=== PATIENT | female | born 1950 | race American Indian/Alaskan Native ===

== ENCOUNTER 2016-09-08 21:40 | Emergency (ER) | payer MEDICARE, OTHER ==
[~2016-09-08] VITALS: Ht 162.6 cm; Wt 86.2 kg
[~2016-09-08 21:40] MED LIST: CEPHALEXIN500 MG PO; CIPRO500 MG PO; CIPROFLOXACIN500 MG PO; CLINDAMYCIN HC300 MG PO; CYCLOBENZAPRINE10 MG PO; CYMBALTA20 MG PO; CYMBALTA30 MG PO; DIAZEPAM5 MG PO; FLAGYL500 MG PO; HYDROCODON-ACE1 EAC8 PO; IBUPROFEN600 MG PO; METRONIDAZOLE500 MG PO; NORCO 10-325 T1 EACH PO; NORCO 5-325 TA1 EACH PO; PERCOCET 5-3251 EACH PO; POTASSIUM CHLO10 MEQ PO; PROMETHAZINE HC25 M1 PO; ZOFRAN ODT4 MG SL
[2016-09-08] MEDS ORDERED: SUBOXONE 8 MG-1 EAC1 SL (22:00)
[2016-09-08] MEDS ORDERED: CYCLOBENZAPRINE10 MG PO (22:01)
[2016-09-08] MEDS ORDERED: KLOR-CON M2020 MEQ PO (22:02)
[2016-09-09] MEDS ORDERED: CIPRO500 MG PO (00:08)
[2016-09-09] MEDS ORDERED: FLAGYL500 MG PO (00:08)
== END 2016-09-09 00:28 | disposition home or self-care (01) ==
LOC: ED 21:40
DX: K57.92 Diverticulitis of intestine, part unspecified, without perforation or abscess without bleeding (principal); F17.200 Nicotine dependence, unspecified, uncomplicated; C76.0 Malignant neoplasm of head, face and neck; Z86.73 Personal history of transient ischemic attack (TIA), and cerebral infarction without residual deficits; Z90.49 Acquired absence of other specified parts of digestive tract; Z88.0 Allergy status to penicillin; Z88.5 Allergy status to narcotic agent; Z88.8 Allergy status to other drugs, medicaments and biological substances; Z79.899 Other long term (current) drug therapy
CPT/HCPCS: 74177; 80053; 81001; 83690; 85025; 96360; 99284; J7030; Q9967

== ENCOUNTER 2016-12-06 21:22 | Emergency (ER) | payer MEDICARE, OTHER ==
[~2016-12-06] VITALS: Ht 162.6 cm; Wt 86.2 kg
[~2016-12-06 21:22] MED LIST changes: +KLOR-CON M2020 MEQ PO; +SUBOXONE 8 MG-1 EAC1 SL
[2016-12-06] MEDS ORDERED: ZOLPIDEM TARTRA10 MG PO (21:37)
--- NOTE | 2016-12-07 22:43 | EKG ---
[facility] [address] [facility] [place] [address] Signed Sinus rhythm with occasional premature ventricular complexes Nonspecific ST and T wave abnormality Abnormal ECG No previous ECGs available Confirmed by ROMAINE MCDOWELL MD ([id number]) on 12/07/2016 10:43:19 PM Electronically Signed By: ROMAINE MCDOWELL MD 12/07/16 2243 PATIENT NAME: RONI URIBE Electrocardiogram DATE OF : 48 PHYSICIAN: ROMAINE MCDOWELL MD REPORT #: [id number] REPORT IS CONFIDENTIAL AND NOT TO BE RELEASED WITHOUT AUTHORIZATION
== END 2016-12-07 00:50 | disposition home or self-care (01) ==
LOC: ED 21:22
PROC: 0T9B70Z Drainage of Bladder with Drainage Device, Via Natural or Artificial Opening (ICD-10-PCS; principal; 2016-12-06)
DX: R40.0 Somnolence (principal); T42.6X5S Adverse effect of other antiepileptic and sedative-hypnotic drugs, sequela; Z85.89 Personal history of malignant neoplasm of other organs and systems; F17.200 Nicotine dependence, unspecified, uncomplicated; Z90.49 Acquired absence of other specified parts of digestive tract; Z88.0 Allergy status to penicillin; Z88.5 Allergy status to narcotic agent; Z88.8 Allergy status to other drugs, medicaments and biological substances; Z79.899 Other long term (current) drug therapy
CPT/HCPCS: 36415; 51701; 71010; 80053; 80176; 81001; 85025; 93005; 93010; 94640; 99283; G0480

== ENCOUNTER 2017-08-31 17:25 | Emergency (ER) | payer MEDICARE, OTHER ==
[~2017-08-31] VITALS: Ht 165.1 cm; Wt 113.4 kg
[~2017-08-31 17:25] MED LIST changes: +ZOLPIDEM TARTRA10 MG PO
[2017-08-31] MEDS ORDERED: PROVENTIL HFA6.7 GM INH (20:13)
[2017-08-31] MEDS ORDERED: MEDROL4 M1 PO (20:13)
[2017-08-31] MEDS ORDERED: ZITHROMAX250 MG PO (20:13)
--- NOTE | 2017-09-01 20:59 | EKG ---
[facility] [address] [facility] [place] [address] Signed Normal sinus rhythm Normal ECG When compared with ECG of 06-DEC-2016 21:37, premature ventricular complexes are no longer present Confirmed by ROMAINE MCDOWELL MD ([id number]) on 09/01/2017 8:59:33 PM Electronically Signed By: ROMAINE MCDOWELL MD 09/01/172058 PATIENT NAME: RONI URIBE Electrocardiogram DATE OF : 48 PHYSICIAN: ROMAINE MCDOWELL MD REPORT #: [id number] REPORT IS CONFIDENTIAL AND NOT TO BE RELEASED WITHOUT AUTHORIZATION
== END 2017-08-31 20:33 | disposition home or self-care (01) ==
LOC: ED 17:25
DX: R07.89 Other chest pain (principal); J20.9 Acute bronchitis, unspecified; F17.200 Nicotine dependence, unspecified, uncomplicated; Z88.8 Allergy status to other drugs, medicaments and biological substances; Z88.0 Allergy status to penicillin; Z88.5 Allergy status to narcotic agent; Z88.6 Allergy status to analgesic agent; Z79.899 Other long term (current) drug therapy
CPT/HCPCS: 71045; 71260; 80053; 84484; 85025; 85379; 85610; 93005; 93010; 93971; 94640; 99285; Q9967

== ENCOUNTER 2018-06-30 15:28 | Emergency (ER) | payer MEDICARE, OTHER ==
[~2018-06-30] VITALS: Ht 165.1 cm; Wt 87.5 kg
--- OUTSIDE RECORDS SUMMARY | ~2018-06-30 | XMS | Encounter Summary ---
Demographics + + + | Address | [address] | | | [place] [address] | + + + | Home Phone | | + + + | Preferred Language | Unknown | + + + | Marital Status | | + + + | Faith Affiliation | CATRACHITO | + + + | Race | or | + + + | Ethnic Group | Not or | + + + Author + + + | Author | [facility] | + + + | Organization | [facility] | + + + | Address | Unknown | + + + | Phone | Unavailable | + + + Support + + +---------+ + | Name | Relationship | Address | Phone | + + +---------+ + | Isaias Salas | ECON | Unknown | | + + +---------+ + Care Team Providers + +------+ + | Care Fruit Sorter Name | Role | Phone | + +------+ + | No Pcp Per Patient | PCP | Unavailable | + +------+ + Reason for Visit + + + | Reason | Comments | + + + | Test Results | | + + + Encounter Details +--------+ + + + + | Date | Type | Department | Care Team | Description | +--------+ + + + + | 12/21/ | Documentati | Rheumatology at | Yolanda Contreras, | Test Results | | 2010 | on | Physicians Zack Huynh MD | | | | | [address] | | | | | | [facility] | | | | | | Mailcode: [address]35 | | | | | | Physicians [facility]ack | | | | | | [place], [place] | | | | | | [address] | | | | | | [phone] | | | +--------+ + + + + Social History + +-------+ +--------+------+ | Tobacco Use | Types | Packs/Day | Years | Date | | | | | Used | | + +-------+ +--------+------+ | Current Some Day | | | | | | Smoker | | | | | + +-------+ +--------+------+ + + +---------+ + | Alcohol Use | Drinks/Week | oz/Week | Comments | + + +---------+ + | No | | | | + + +---------+ + + + + | Sex Assigned at | Date Recorded | | | | + + + | Not on file | | + + + + + + + | Job Start Date | Occupation | Industry | + + + + | Not on file | Not on file | Not on file | + + + + + + + + | Travel History | Travel Start | Travel End | + + + + + + | No recent travel history available. | + + documented as of this encounter Plan of Treatment Not on filedocumented as of this encounter Visit Diagnoses Not on filedocumented in this encounter"
--- OUTSIDE RECORDS SUMMARY | ~2018-06-30 | XMS | Encounter Summary ---
Demographics + + + | Address | [address] | | | [place] [address] | + + + | Home Phone | | + + + | Preferred Language | Unknown | + + + | Marital Status | | + + + | Pentecostal Affiliation | CATRACHITO | + + + | Race | or | + + + | Ethnic Group | Not or | + + + Author + + + | Author | [facility] | + + + | Organization | [facility] | + + + | Address | Unknown | + + + | Phone | Unavailable | + + + Support + + +---------+ + | Name | Relationship | Address | Phone | + + +---------+ + | Isaias Salas | ECON | Unknown | | + + +---------+ + Care Team Providers + +------+ + | Care Certifier Name | Role | Phone | + +------+ + | Sulaiman Henderson MD | PCP | | + +------+ + Reason for Visit + + + | Reason | Comments | + + + | Test Results | Synovial Fluid | + + + Encounter Details +--------+ + + + + | Date | Type | Department | Care Team | Description | +--------+ + + + + | 04/30/ | Telephone | Rheumatology at | Lorena Valerio, | Test Results | | 2009 | | Physicians Zack | MD | (Synovial Fluid) | | | | [address] | | | | | | [facility] | | | | | | Mailcode: [address]35 | | | | | | Physicians [facility]ack | | | | | | [place], [place] | | | | | | [address] | | | | | | [phone] | | | +--------+ + + + + Social History + +-------+ +--------+------+ | Tobacco Use | Types | Packs/Day | Years | Date | | | | | Used | | + +-------+ +--------+------+ | Never Assessed | | | | | + +-------+ +--------+------+ + + + | Sex Assigned at [...]
--- OUTSIDE RECORDS SUMMARY | ~2018-06-30 | XMS | Encounter Summary ---
Demographics + + + | Address | [address] | | | [place] [address] | + + + | Home Phone | | + + + | Preferred Language | Unknown | + + + | Marital Status | | + + + | Roman Catholic Affiliation | CATRACHITO | + + + | Race | or | + + + | Ethnic Group | Not or | + + + Author + + + | Author | [facility] | + + + | Organization | [facility] | + + + | Address | Unknown | + + + | Phone | Unavailable | + + + Support + + +---------+ + | Name | Relationship | Address | Phone | + + +---------+ + | Isaias Salas | ECON | Unknown | | + + +---------+ + Care Team Providers + +------+ + | Care Chancellor Name | Role | Phone | + +------+ + | Sulaiman Henderson MD | PCP | | + +------+ + Reason for Visit + + + | Reason | Comments | + + + | Erroneous Encounter | | | - Disregard | | + + + Encounter Details +--------+---------+ + + + | Date | Type | Department | Care Team | Description | +--------+---------+ + + + | 01/18/ | Office | Rheumatology at | Ihsan Winters, | ERRONEOUS ENCOUNTER | | 2009 | Visit | Isreal Dixon | MD | - NO DIAGNOSIS | | | | [address] | | (Primary Dx) | | | | [facility] | | | | | | Mailcode: [address] | | | | | | Isreal Dixon | | | | | | [place], [place] | | | | | | [address] | | | | | | [phone] | | | +--------+---------+ + + + Social History + +-------+ [...] + + documented as of this encounter Progress Ihsan Mendoza MD - 12/24/2009 4:02 PM PDTPatient did not show for appointment.This en counter was opened in error. Please disregard this note. documented in this encounter Plan of Treatment Not on filedocumented as of this encounter Visit Diagnoses + + | Diagnosis | + + | ERRONEOUS ENCOUNTER - NO DIAGNOSIS - Primary | + + documented in this encounter"
--- OUTSIDE RECORDS SUMMARY | ~2018-06-30 | XMS | Encounter Summary ---
Demographics + + + | Address | [address] | | | [place] [address] | + + + | Home Phone | | + + + | Preferred Language | Unknown | + + + | Marital Status | | + + + | Yarsanism Affiliation | CATRACHITO | + + + | Race | or | + + + | Ethnic Group | Not or | + + + Author + + + | Author | [facility] | + + + | Organization | [facility] | + + + | Address | Unknown | + + + | Phone | Unavailable | + + + Support + + +---------+ + | Name | Relationship | Address | Phone | + + +---------+ + | Isaias Salas | ECON | Unknown | | + + +---------+ + Care Team Providers + +------+ + | Care Clinical Abstractor Name | Role | Phone | + +------+ + | Jairon Siegel | PCP | | + +------+ + Reason for Visit + + + | Reason | Comments | + + + | Appointment | | + + + Encounter Details +--------+ + + + + | Date | Type | Department | Care Team | Description | +--------+ + + + + | 08/16/ | Telephone | Digestive Health | Lucille De La Rosa, | Appointment | | 2013 | | Center at [facility] [address] | MD [address] | | | | | [address] | [place], [place] | | | | | Mailcode: [place] | [address] | | | | | for Health and | [phone] | | | | | [facility] [address] | | | | | | [place], [place] | | | | | | [address] | | | | | | [phone] | | | +--------+ + + + + Social History + + + +--------+------+ | Tobacco Use | Types | Packs/Day | Years | Date | | | | | Used | | + + + +--------+------+ | Current Some Day | Cigarettes | 0.1 | 12 | | | Smoker | | | | | + + + +--------+------+ + + | Comments: pt smokes 2 cig a day | + + + + +---------+ + | Alcohol Use [...]
--- OUTSIDE RECORDS SUMMARY | ~2018-06-30 | XMS | Encounter Summary ---
Demographics + + + | Address | [address] | | | [place] [address] | + + + | Home Phone | | + + + | Preferred Language | Unknown | + + + | Marital Status | | + + + | Latter Day Affiliation | CATRACHITO | + + + | Race | or | + + + | Ethnic Group | Not or | + + + Author + + + | Author | [facility] | + + + | Organization | [facility] | + + + | Address | Unknown | + + + | Phone | Unavailable | + + + Support + + +---------+ + | Name | Relationship | Address | Phone | + + +---------+ + | Isaias Salas | ECON | Unknown | | + + +---------+ + Care Team Providers + +------+ + | Care [employer] Name | Role | Phone | + +------+ + | Jairon Bailey | PCP | | + +------+ + Reason for Visit + + + | Reason | Comments | + + + | Diverticulitis | | + + + AUTH/CERT +--------+--------+ + + + + | Status | Reason | Specialty | Diagnoses / | Referred By | Referred To | | | | | Procedures | Contact | Contact | +--------+--------+ + + + + | Closed | | | | | | +--------+--------+ + + + + Encounter Details +--------+ + + + + | Date | Type | Department | Care Team | Description | +--------+ + + + + | 12/20/ | Hospital | [facility] [address] | Ladan Glynn, | | | 2011 - | Encounter | [address] | [address] | | | | | [place] [address] | [facility] [place] | | | 12/23/ | | [phone] | [id number] | | | 2011 | | | [phone] | | | | | | | | +--------+ + + + + Social History + + + +--------+------+ | Tobacco Use | Types | Packs/Day | Years | Date | | | | | Used | | + + + +--------+------+ | Current Some Day | Cigarettes | 0.1 | 12 | | | Smoker | | | | | + + + +--------+------+ + + | Tobacco Cessation: Ready to Quit: Yes; Counseling Given: Yes | | Comments: pt smokes 2 cig a [...] + + + | Blood Pressure | 106/64 | 12/24/2011 6:29 AM | | | | | PDT | | + + + + + | Pulse | 72 | 12/24/2011 6:29 AM | | | | | PDT | | + + + + + | Temperature | 37.2 C (99 F) | 12/24/2011 6:29 AM | | | | | PDT | | + + + + + | Respiratory Rate | 16 | 12/24/2011 6:29 AM | | | | | PDT | | + + + + + | Oxygen Saturation | 98% | 12/24/2011 6:29 AM | | | | | PDT | | + + + + + | Inhaled Oxygen | - | - | | | Concentration | | | | + + + + + | Weight | 86.2 kg (190 lb) | 12/21/2011 7:34 PM | | | | | PDT | | + + + + + | Height | 165.1 cm (5' 5") | 12/21/2011 7:34 PM | | | | | PDT | | + + + + + | Body Mass Index | 31.62 | 12/21/2011 7:34 PM | | | | | PDT | | + + + + + documented in this encounter Discharge Summaries Sergio Madden MD - 12/24/2011 7:40 AM PDTFormatting of this note might be different f rom the original. INPATIENT PHYSICIAN DISCHARGE SUMMARY Author: SERGIO MADDEN MD Attending Physician: Ladan Glynn MD PCP: Jairon BAILEY Admission Date: 12/21/2011 Discharge Date: 24 Dec 2011 Diagnoses Principal Final Diagnosis: 1) *Diverticula of small intestine Additional Diagnoses: 2) Abdominal pain 3) Tobacco abuse 4) Rheumatoid arthritis 5) Hypokalemia 6) Fever Brief Hospital Course Trudy Salas is a 61 y.o. Female with h/o perforated meckel's diverticulum who is s /p right colectomy and appendectomy, as well as h/o cholecystectomy, small bowel resection f or obstruction and subsequent incisional hernia's s/p mesh repair x2. The patient was refer red to blue surgery for possible component seperation and incisional hernia repair and was s een last week by Dr. Glynn. She was scheduled for repair on 12/28, however presented to th e ER in [facility] with RLQ abdominal and right flank pain and fevers to 102 per patient's re port. She was found to have a leukocytosis of 11.[address] was obtained. The CT showed mult iple small bowel diverticula and ileal thickening. She was started on zosyn and monitored o vernight and decision was made to transfer her to [facility] for further care. Zosyn was stopped a nd she was switched to Cipro and Flagyl. Patient endores anorexia but no significant wt loss , nausea but no emesis and diarrhea about 4x daily. She was kept NPO for the first day to al low for bowel rest. Her pain improved with medication, IV fluids and antibiotics. She was tr ansitioned to oral antibiotics and started on a full liquid diet which she has tolerated wel l and was subsequently advanced to a regular diet. Her hernia surgery has been postponed to February 2012 and we will have her follow up with Dr. Glynn in clinic at the end of . Medications: Current Discharge Medication List START taking these medications Details ciprofloxacin 500 mg Oral tablet Take 1 Tab by mouth two times daily for 5 days. Qty: 10 Tab, Refills: 0 metroNIDAZOLE 500 mg Oral tablet Take 1 Tab by mouth three times daily for 5 days. Qty: 15 Tab, Refills: 0 nicotine polacrilex 2 mg Buccal Lozenge Take 1 Lozenge by mouth every two hours as needed. Do not chew or swallow. Allow to dissolve slowly (~ 20-30 minutes) Indications: SMOKING JOSE MANUEL SATION Qty: 108 Each, Refills: 2 CONTINUE these medications which have NOT CHANGED Details methotrexate 2.5 mg Oral Tablet Take 6 Tabs by mouth every seven days. Qty: 24 Tab, Refills: 3 STOP taking these medications hydrocodone-acetaminophen (VICODIN) 5-500 mg Oral Tablet Comments: Reason for Stopping: potassium chloride 20 mEq Oral Packet Comments: Reason for Stopping: Diet Regular Regular diet- You may eat or drink whatever you prefer, though healthy food choices are rec ommended. Continue a diet low in fiber due to diverticulitis. As discussed with math tutor. Activity NO DRIVING WHILE ON NARCOTICS. CONSTIPATION: It is very important to avoid constipation and straining, there are several medications you can use to both prevent and relieve constipation. You can use stool softeners (Colace a.k. a. Docusate Sodium) or laxatives (Senokot -stool softener + laxative; Miralax - laxative dri nk; Dulcolax - suppository). Please work toward having a bowel movement every 1-2 days. It i s also important to stay hydrated as this will also help your bowel function. Other Discharge Orders and Instructions Medication Refill Instructions: For non-narcotic medication refills, please contact your pharmacy. If you think you will need a refill for the weekend, you must call by 3pm on to al low time for processing. Narcotics: If you need a refill on narcotic pain medications, please call the clinic be tween 8am-3pm. If you think you will need a refill for the weekend, you must call by 3pm on Narcotic medications (Dilaudid, Oxycodone, Morphine, etc.) cannot be called or faxed in to any pharmacy; They must be either picked up in person or mailed to your home. NO REFILL REQU ESTS WILL BE TAKEN ON FRIDAYS OR . Prescriptions sent by mail will take 3 business d ays. Prescriptions to be picked up in person will be ready by the next day. It is your responsibility to keep track of how much pain medication you have left. You may receive a phone call from the clinic inquiring about your pain; this is to find out if you are having expected post-surgical pain, or if you are having problems and need furth er evaluation. Please contact us if you have any of the following: Difficulty breathing or unusual shortness of breath; Excessive bleeding or drainage, or pus at the operative site; Fevers (greater than 101.5) or chills; Increased pain that is not relieved by pain medications; Persistent nausea, vomiting, or severe diarrhea. During normal business hours please call [facility] . For 'after hours' URGENT problems please call the [facility] magnetic tape composer operator at and ask fo r the "[facility] resident on-call". Your Follow-Up Plan Follow up with LADAN GLYNN MD in 4 weeks. (01/17 you have an appointment with Dr. Roly east) Contact information: [address] [facility] [phone] Vitals on discharge: Ht 165.1 cm (5' 5")( < 3 %ile), Wt 86.183 kg (190 lbs)( < 3 %ile), BP 106/64, Pulse 72, Temperature 37.2 C (99 F), RR 16, SpO2 98%, BMI 31.62 kg/(m^2). PE Gen: NAD Pulm: breathing comfortably on RA Abdomen: soft, minimally tender in RLQ (improved), non-distended Extremities: no peripheral edema Outstanding labs/studies: Final stool, urine, and blood cultures Discharging Physician: SERGIO MADDEN MD Attending Physician: Ladan Glynn MD documented in this en counter Discharge Instructions Instructions Anabela Spencer - 12/24/2011 Patient Education Materials: Abdominal Pain: After Your Visit Your Care Instructions Abdominal pain has many possible causes. Some aren't serious and get better on their own in a few days. Others need more testing and treatment. If your pain continues or gets worse, y ou need to be rechecked and may need more tests to find out what is wrong. You may need surg campos to correct the problem. Don't ignore new symptoms, such as fever, nausea and vomiting, urination problems, pain dane t gets worse, and dizziness. These may be signs of a more serious problem. Your doctor may have recommended a follow-up visit in the next 8 to 12 hours. If you are no t getting better, you may need more tests or treatment. The doctor has checked you carefully, but problems can develop later. If you notice any pro blems or new symptoms, get medical treatment right away. Follow-up care is a hudson part of your treatment and safety. Be sure to make and go to all ap pointments, and call your doctor if you are having problems. It's also a good idea to know y our test results and keep a list of the medicines you take. How can you care for yourself at home? Rest until you feel better. To prevent dehydration, drink plenty of fluids, enough so that your urine is light yello w or clear like water. Choose water and other caffeine-free clear liquids until you feel bet ter. If you have kidney, heart, or liver disease and have to limit fluids, talk with your do ctor before you increase the amount of fluids you drink. If your stomach is upset, eat mild foods, such as rice, dry toast or crackers, bananas, and applesauce. Try eating several small meals instead of two or three large ones. Wait until 48 hours after all symptoms have gone away before you have spicy foods, alcoh ol, and drinks that contain caffeine. Do not eat foods that are high in fat. Avoid anti-inflammatory medicines such as aspirin, ibuprofen (Advil, Motrin), and naprox en (Aleve). These can cause stomach upset. Talk to your doctor if you take daily aspirin for another health problem. When should you call for help? Call 911 anytime you think you may need emergency care. For example, call if: You passed out (lost consciousness). You pass maroon or very bloody stools. You vomit blood or what looks like coffee grounds. You have new, severe belly pain. Call your doctor now or seek immediate medical care if: Your pain gets worse, especially if it becomes focused in one area of your belly. You have a new or higher fever. Your stools are black and look like tar, or they have streaks of blood. You have unexpected vaginal bleeding. You have symptoms of a urinary tract infection. These may include: Pain when you urinate. Urinating more often than usual. Blood in your urine. You are dizzy or lightheaded, or you feel like you may faint. Watch closely for changes in your health, and be sure to contact your doctor if: You are not getting better after 1 day (24 hours). Where can you learn more? To learn more about "Abdominal Pain: After Your Visit", log into your BeeFirst.in account at [email or web address]. You can enter E907 in the [employer]" search box. Not on BeeFirst.in? Review the [employer]First[employer]in section of your After Visit Summary for directions on ho w to sign up. [id number] [employer]. Care instructions adapted under license by [facility]. This care instruction is for use with your licensed healthcar e professional. If you have questions about a medical condition or this instruction, always ask your healthcare professional. [employer] disclaims any warranty or liabili ty for your use of this information. Content Version: 9.4.73575; Last Revised: June 13, 2011 Discharge Nurse: Anabela Spencer Date: 12/24/2011 Discharge Time: 11:28 AM Abdominal Pain: After Your Visit Your Care Instructions Abdominal pain has many possible causes. Some aren't serious and get better on their own in a few days. Others need more testing and treatment. If your pain continues or gets worse, y ou need to be rechecked and may need more tests to find out what is wrong. You may need surg campos to correct the problem. Don't ignore new symptoms, such as fever, nausea and vomiting, urination problems, pain dane t gets worse, and dizziness. These may be signs of a more serious problem. Your doctor may have recommended a follow-up visit in the next 8 to 12 hours. If you are no t getting better, you may need more tests or treatment. The doctor has checked you carefully, but problems can develop later. If you notice any pro blems or new symptoms, get medical treatment right away. Follow-up care is a hudson part of your treatment and safety. Be sure to make and go to all ap pointments, and call your doctor if you are having problems. It's also a good idea to know y our test results and keep a list of the medicines you take. How can you care for yourself at home? Rest until you feel better. To prevent dehydration, drink plenty of fluids, enough so that your urine is light yello w or clear like water. Choose water and other caffeine-free clear liquids until you feel bet ter. If you have kidney, heart, or liver disease and have to limit fluids, talk with your do ctor before you increase the amount of fluids you drink. If your stomach is upset, eat mild foods, such as rice, dry toast or crackers, bananas, and applesauce. Try eating several small meals instead of two or three large ones. Wait until 48 hours after all symptoms have gone away before you have spicy foods, alcoh ol, and drinks that contain caffeine. Do not eat foods that are high in fat. Avoid anti-inflammatory medicines such as aspirin, ibuprofen (Advil, Motrin), and naprox en (Aleve). These can cause stomach upset. Talk to your doctor if you take daily aspirin for another health problem. When should you call for help? Call 911 anytime you think you may need emergency care. For example, call if: You passed out (lost consciousness). You pass maroon or very bloody stools. You vomit blood or what looks like coffee grounds. You have new, severe belly pain. Call your doctor now or seek immediate medical care if: Your pain gets worse, especially if it becomes focused in one area of your belly. You have a new or higher fever. Your stools are black and look like tar, or they have streaks of blood. You have unexpected vaginal bleeding. You have symptoms of a urinary tract infection. These may include: Pain when you urinate. Urinating more often than usual. Blood in your urine. You are dizzy or lightheaded, or you feel like you may faint. Watch closely for changes in your health, and be sure to contact your doctor if: You are not getting better after 1 day (24 hours). Where can you learn more? To learn more about "Abdominal Pain: After Your Visit", log into your BeeFirst.in account at [email or web address]. You can enter E907 in the [employer] Library" search box. Not on BeeFirst.in? Review the [email or web address] section of your After Visit Summary for directions on ho w to sign up. [id number] [employer]. Care instructions adapted under license by [facility]. This care instruction is for use with your licensed healthcar e professional. If you have questions about a medical condition or this instruction, always ask your healthcare professional. [employer] disclaims any warranty or liabili ty for your use of this information. Content Version: 9.4.79210; Last Revised: June 13, 2011 documented in this encounter Medications at Time of Discharge + + + +---------+ + + | Medication | Sig | Dispensed | Refills | Start | End Date | | | | | | Date | | + + + +---------+ + + | | Take 1-2 Tabs by | 30 Tab | 0 | 12/24/19 | | | HYDROcodone-acetamin | mouth every six | | | 12 | | | ophen 5-325 mg Oral | hours as needed (for | | | | | | tablet | pain.). Not to | | | | | | | exceed 10 tablets | | | | | | | per any 24 hour | | | | | | | period. (Not to | | | | | | | exceed 3250 mg of | | | | | | | acetaminophen from | | | | | | | all products per 24 | | | | | | | hour period.) | | | | | + + + +---------+ + + | Sennosides (SENNA) | Take 1 Cap by mouth | 30 Cap | 1 | 12/24/19 | | | 8.6 mg Oral capsule | two times daily. | | | 12 | | + + + +---------+ + + | ciprofloxacin 500 | Take 1 Tab by mouth | 10 Tab | 0 | 12/24/19 | | | mg Oral tablet | two times daily for | | | 12 | 2 | | | 5 days. | | | | | + + + +---------+ + + | metroNIDAZOLE 500 | Take 1 Tab by mouth | 15 Tab | 0 | 12/24/19 | | | mg Oral tablet | three times daily | | | 12 | 2 | | | for 5 days. | | | | | + + + +---------+ + + documented as of this encounter Progress Notes Sergio Madden MD - 12/23/2011 8:09 AM PDTFormatting of this note might be different f rom the original. ID: Trudy Salas is a 61 y.o. female with a history of meckels diverticulum and sma ll bowel diverticulitis who presented as a transfer from [place], [place]. 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 Subjective: Trudy Salas is a 61 y.o. Female who presented to [facility] a few days ago with severe abdominal pain. A CT indicated small bowel diverticulitis and she was given a d ose of zosyn. Since she was scheduled to have surgery with Dr. Glynn on December 28 here at [facility], they transferred her here for care. She has had a CAIN over night with moderate relie f from APAP and dilaudid. She does note that her nicotine patch came off yesterday and has n ot been replaced. She also would really like a cup of coffee. She denies N/V but has had cynthia e diarrhea. Current Inpatient Medications Medication Dose Route Frequency acetaminophen (aka TYLENOL) tablet 650 mg 650 mg Oral Q6H PRN ciprofloxacin (aka CIPRO) IV 400 mg 400 mg Intravenous Q12H enoxaparin (aka LOVENOX) injection 40 mg 40 mg Subcutaneous QPM famotidine in NS (aka PEPCID) IV 20 mg 20 mg Intravenous Q12H HYDROmorphone (aka DILAUDID) injection 0.2-1 mg 0.2-1 mg Intravenous Q2H PRN lactated ringers IV 100 mL/hr Intravenous CONTINUOUS metroNIDAZOLE (aka FLAGYL) IV 500 mg 500 mg Intravenous Q8H nicotine polacrilex (aka COMMIT) lozenge 2 mg 2 mg Oral Q1H PRN ondansetron (aka ZOFRAN) injection 4 mg 4 mg Intravenous Q12H PRN zolpidem (aka AMBIEN) tablet 5 mg 5 mg Oral HS PRN Objective: BP 123/63 | Pulse 69 | Temp 37.6 C (99.7 F) | RR 16 | Ht 1.651 m (5' 5") | Wt 86.183 kg (190 lb) | SpO2 96% | BMI 31.62 kg/(m^2) SBP: Systolic (24hrs), Av mmHg, Min:98 mmHg, Max:130 mmHg DBP: Diastolic (24hrs), Av mmHg, Min:53 mmHg, Max:72 mmHg Pulse: Pulse Av.3 Min: 64 Max: 73 Temp: Temp Av.2 C (99 F) Min: 36.7 C (98.1 F) Max: 37.8 C (100 F) Resp: Resp Av Min: 16 Max: 16 SpO2: SpO2 Av.2 % Min: 91 % Max: 96 % Intake/Output Summary (Last 24 hours) at 12/23/11 0809 Last data filed at 12/23/11 0600 Gross per 24 hour Intake 2796.67 ml Output 1625 ml Net 1171.67 ml Physical Exam: Gen: Healthy appearing female in no acute distress CV: RRR Resp: CTAB Abdomen: soft, tender to palpation diffusely with significant pain in the RLQ to palpation; normal percussion; normal bowel sounds; no mass, guarding or rebound tenderness Extremities: no lymphedema bilateral upper and lower extremities Labs: Chemistries: Recent Labs Basename 12/23/11 0456 12/21/11 2046 NA 141 137|137 K 3.3* 4.3|4.3 CL 102 102|102 BICARB 29 29|29 BUN 4* 7|7 CR 0.63 0.61|0.61 GLU 87 84|84 CA 8.4* 8.1*|8.1* AST -- -- ALT -- -- AP -- -- TBILI -- -- TP -- -- ALB 2.9* 2.9* CBC: CBC with diff last 72 hours (or 3 results) Recent Labs Basename 12/23/11 0456 12/22/11 0801 12/21/11 2046 WBC 4.3* 8.3 10.6 HB 10.9* 10.9* 11.7* HCT 33.1* 32.8* 35.3* PLT 180 160 155 NEUTROPERC -- -- 82* BANDPCT -- -- -- LYMPHPERC -- -- 13* MONOPERC -- -- 5 BASOPERC -- -- 0 EOSPERC -- -- 0* Assessment/Plan Trudy Salas is a 61 y.o. Female transferred here from [place] for a small bowel diverticulitis. She has been on cipro and metronidazole and has not had a fever for more dane n 24h at this time. Due to the diverticulitis, her surgery with Dr. Glynn on December 28 has been postponed to allow for full recovery before operating. Small bowel diverticulitis - Advance to full liquid diet today - monitor for worsening sx or N/V - continue to monitor CBC and watch for fevers Tobacco dependence - pt was smoking only 2-3 cigarrettes a day so should be OK with lozenges only - d/c nicotine patch CAIN - possibly due to caffeine withdrawal, will see if her coffee this morning I proves her sx Scribed by Jefferson Herrera, MS3 [facility] Medical Student 2014 Pager [phone] I saw and examined this patient with the medical student and agree with his assessment and plan. With the following additions: patient was transitioned to PO Cipro and Flagyl and will be continued on these at discharge for a total duration of 7 days. Advanced to full liquid diet this AM which was well tolerated, will advance to regular in AM. Will f/u blood culture s. Likely will discharge patient in the AM. Sergio Madden, [id number] signed by Sergio Madden MD at 12/23/2011 9:20 PM PDTS Sergio ocampo MD - 12/22/2011 11:36 AM PDTFormatting of this note might be different fro m the original. [facility] Inpatient Progress Note Hospital Day #1 Author: SERGIO MADDEN MD Attending: Ladan Glynn MD ID: Trudy Salas Interval Hx: Transferred to [facility] from [place] last night. Febrile to 38.8 overnight. Chemistries: Last 72 Hours (or 3 results): Recent Labs Basename 12/21/112045 NA 137|137 K 4.3|4.3 CL 102|102 BICARB 29|29 BUN 7|7 CR 0.61|0.61 GLU 84|84 CA 8.1*|8.1* MG -- PO4 3.5 CBC with diff last 72 hours (or 3 results) Recent Labs Basename 12/22/11 0801 12/21/112045 WBC 8.3 10.6 HB 10.9* 11.7* HCT 32.8* 35.3* PLT 160 155 NEUTROPERC -- 82* BANDPCT -- -- LYMPHPERC -- 13* MONOPERC -- 5 BASOPERC -- 0 EOSPERC -- 0* Physical Examination: Last Vitals: BP 109/53 | Pulse 71 | Temp 37.1 C (98.8 F) | RR 16 | Ht 1.651 m (5' 5") | Wt 86.183 kg (190 lb) | SpO2 92% | BMI 31.62 kg/(m^2) 24 Hour Vital Min/Max: Systolic (24hrs), Av mmHg, Min:105 mmHg, Max:123 mmHg Diastolic (24hrs), Av mmHg, Min:53 mmHg, Max:57 mmHg Pulse Av.8 Min: 69 Max: 82 Temp Av C (100.4 F) Min: 37.1 C (98.8 F) Max: 39.3 C (102.7 F) Resp Av Min: 16 Max: 18 SpO2 Av % Min: 92 % Max: 97 % Date 12/21/11699 - 12/22/1165812/22/11699 - 12/23/11 0659 Shift 2350-3353 0822-7548 5994-1719 Daily Total 5859-3724 0395-7657 5027-7138 Daily Total I N T A K E I.V. 732 811 5104 Shift Total 974 474 6123 O U T P U T Urine 113 602 0527 Urine 023 227 6013 Shift Total 206 795 1455 NET -255 130 -125 General: Awake, alert, and oriented x4, no acute distress, VSS HEENT:NC/AT, anicteric Pulm: Respirations even/unlabored, chest expansion symmetrical Abdomen: Soft.tender to palpation in RLQ- but no rebound or guarding, Non-distended, palpab le inferior- abdominal fascial defect MS: Moves all extremities well, Warm and well perfused Derm: No edema Endocrine: Last CBG's POC Lab Results Component Value Date GLU 84 12/21/2011 GLU 84 12/21/2011 Assessment: Trudy Salas, HD#2, with h/o perforated meckel's diverticulum who is s/ p right colectomy and appendectomy, as well as h/o cholecystectomy, small bowel resection fo r obstruction and subsequent incisional hernia's s/p mesh repair x2. The patient was referre d to blue surgery for possible component seperation and incisional hernia repair and was see n last week by Dr. Glynn. She was scheduled for repair on 12/28, however presented to the E R in [facility] with RLQ abdominal and right flank pain and fevers to 102 per patient's repor t. She was found to have a leukocytosis of 11.[address] was obtained that showed some infla mmation of the ileum with diverticula. She was transferred to [facility] for management. Plan: 1. Inflammation of the terminal ileum, possible SB diverticulitis- Tmax of 102.7 this morni ng but afebrile now, clinically appears well, no peritoneal signs, no perforation on CT scan . -continue Cipro/Flagyl, will consider broadening spectrum with Zosyn if patient continues to be febrile -stool cx today, will f/u blood cx and adjust abx as indicated -continue NPO -Zofran PRN 2. Fever workup for non-GI causes -f/u final read of CXR, UA and urine cx 3. Oxygen req- on 1 L NC this AM 4. Rheumatoid Arthritis -will hold patient's newly prescribed methotrexate as she has not started taking it yet 5. Tobacco cessation -per pharm will discontinue nicotine patch, continue lozenge Fluids:LR @ 100 Electrolytes: WNL last night, will re-check in AM Diet/Nutrition: NPO Prophylaxis: Lovenox 40mg QHS- start tonight/ Pepcid 20 mg IV BID while NPO Anticipated date of discharge: TBD Attending Physician: Rj Madden MD [facility] Pager# [phone] 11:37 AM 12/22/2011 Current Inpatient Medications Medication Dose Route Frequency acetaminophen (aka TYLENOL) tablet 650 mg 650 mg Oral Q6H PRN ciprofloxacin (aka CIPRO) IV 400 mg 400 mg Intravenous Q12H HYDROmorphone (aka DILAUDID) injection 0.2-1 mg 0.2-1 mg Intravenous Q2H PRN lactated ringers IV 100 mL/hr Intravenous CONTINUOUS methotrexate tablet 15 mg 15 mg Oral Q7D metroNIDAZOLE (aka FLAGYL) IV 500 mg 500 mg Intravenous Q8H nicotine (aka NICOTROL) 14 mg/24 hr 1 Patch 1 Patch Transdermal DAILY nicotine polacrilex (aka COMMIT) lozenge 2 mg 2 mg Oral Q1H PRN ondansetron (aka ZOFRAN) injection 4 mg 4 mg Intravenous Q12H PRN documented in this encounter Plan of Treatment + +------+--------+ + + | Name | Type | Priori | Associated Diagnoses | Order Schedule | | | | ty | | | + +------+--------+ + + | CULTURE, SPUTUM | Lab | Routin | | Collect Now for 1 | | | | e | | Occurrences starting | | | | | | 12/22/2011 until | | | | | | 12/22/2011 | + +------+--------+ + + documented as of this encounter Procedures + +--------+ + + + | Procedure Name | Priori | Date/Time | Associated Diagnosis | Comments | | | ty | | | | + +--------+ + + + | CBC ONLY | Routin | 12/24/2011 | | Results for this | | | e | 5:17 AM | | procedure are in the | | | | PDT | | results section. | + +--------+ + + + | CBC ONLY | Routin | 12/24/2011 | | Results for this | | | e | 5:17 AM | | procedure are in the | | | | PDT | | results section. | + +--------+ + + + | CBC ONLY | Routin | 12/23/2011 | | Results for this | | | e | 4:56 AM | | procedure are in the | | | | PDT | | results section. | + +--------+ + + + | RENAL FUNCTION SET | Routin | 12/23/2011 | | Results for this | | (NA,K,CL,CO2,BUN,CRE | e | 4:56 AM | | procedure are in the | | AT,GLUC,CA,PHOS,ALB | | PDT | | results section. | | ) | | | | | + +--------+ + + + | CBC ONLY | Routin | 12/23/2011 | | Results for this | | | e | 4:56 AM | | procedure are in the | | | | PDT | | results section. | + +--------+ + + + | MAGNESIUM, PLASMA | Routin | 12/23/2011 | | Results for this | | | e | 4:56 AM | | procedure are in the | | | | PDT | | results section. | + +--------+ + + + | CULTURE, STOOL BACTI | Routin | 12/22/2011 | | Results for this | | | e | 11:02 AM | | procedure are in the | | | | PDT | | results section. | + +--------+ + + + | X-RAY PORTABLE CHEST | Routin | 12/22/2011 | | Results for this | | 1 VIEW | e | 9:39 AM | | procedure are in the | | | | PDT | | results section. | + +--------+ + + + | CBC ONLY | Routin | 12/22/2011 | | Results for this | | | e | 8:01 AM | | procedure are in the | | | | PDT | | results section. | + +--------+ + + + | CBC ONLY | Routin | 12/22/2011 | | Results for this | | | e | 8:01 AM | | procedure are in the | | | | PDT | | results section. | + +--------+ + + + | UA, DIPSTICK ONLY | Routin | 12/22/2011 | | Results for this | | | e | 3:08 AM | | procedure are in the | | | | PDT | | results section. | + +--------+ + + + | URINE, MICROSCOPIC | Routin | 12/22/2011 | | Results for this | | EXAM | e | 3:08 AM | | procedure are in the | | | | PDT | | results section. | + +--------+ + + + | CULTURE, BLOOD BACTI | Routin | 12/22/2011 | | Results for this | | & YEAST [facility] | e | 1:37 AM | | procedure are in the | | | | PDT | | results section. | + +--------+ + + + | CULTURE, BLOOD BACTI | Routin | 12/22/2011 | | Results for this | | & YEAST [facility] | e | 1:37 AM | | procedure are in the | | | | PDT | | results section. | + +--------+ + + + | CULTURE, BLOOD BACTI | Routin | 12/22/2011 | | Results for this | | & YEAST | e | 1:37 AM | | procedure are in the | | | | PDT | | results section. | + +--------+ + + + | CULTURE, BLOOD BACTI | Routin | 12/22/2011 | | Results for this | | & YEAST | e | 1:37 AM | | procedure are in the | | | | PDT | | results section. | + +--------+ + + + | ERIN PHAM ONLY | Routin | 12/21/2011 | | Results for this | | | e | 10:05 PM | | procedure are in the | | | | PDT | | results section. | + +--------+ + + + | URINE SCREEN FOR | Routin | 12/21/2011 | | Results for this | | CULTURE | e | 10:05 PM | | procedure are in the | | | | PDT | | results section. | + +--------+ + + + | 12 LEAD ECG | Urgent | 12/21/2011 | | Results for this | | | | 8:47 PM | | procedure are in the | | | | PDT | | results section. | + +--------+ + + + | CBC AND AUTO DIFF | Routin | 12/21/2011 | | Results for this | | | e | 8:46 PM | | procedure are in the | | | | PDT | | results section. | + +--------+ + + + | INR | Routin | 12/21/2011 | | Results for this | | | e | 8:46 PM | | procedure are in the | | | | PDT | | results section. | + +--------+ + + + | CBC, WITH | Routin | 12/21/2011 | | Results for this | | DIFFERENTIAL | e | 8:46 PM | | procedure are in the | | | | PDT | | results section. | + +--------+ + + + | BASIC METABOLIC SET | Routin | 12/21/2011 | | Results for this | | (NA, K, CL, TCO2, | e | 8:46 PM | | procedure are in the | | BUN, CR, GLU, CA) | | PDT | | results section. | + +--------+ + + + | RENAL FUNCTION SET | Routin | 12/21/2011 | | Results for this | | (NA,K,CL,CO2,BUN,CRE | e | 8:46 PM | | procedure are in the | | AT,GLUC,CA,PHOS,ALB | | PDT | | results section. | | ) | | | | | + +--------+ + + + | RADIOLOGY | | 12/21/2011 | | Results for this | | | | 12:00 AM | | procedure are in the | | | | PDT | | results section. | + +--------+ + + + documented in this encounter Results CBC (12/24/2011 5:17 AM PDT) + + + + + + | Component | Value | Ref Range | Performed | Pathologist | | | | | At | Signature | + + + + + + | WHITE CELL | 4.6 | 4.4 - 11.0 K/cu | [facility] | | | COUNT | | mm | LABORATORY | | | | | | SERVICES, | | | | | | CORE | | + + + + + + | RED CELL | 4.34 | 4.00 - 5.20 | [facility] | | | COUNT | | M/cu mm | LABORATORY | | | | | | SERVICES, | | | | | | CORE | | + + + + + + | HEMOGLOBIN | 13.1 | 12.0 - 16.0 | [facility] | | | | | g/dL | LABORATORY | | | | | | SERVICES, | | | | | | CORE | | + + + + + + | HEMATOCRIT | 39.8 | 36.0 - 46.0 % | [facility] | | | | | | LABORATORY | | | | | | SERVICES, | | | | | | CORE | | + + + + + + | MCV | 91.8 | 80.0 - 96.0 fL | [facility] | | | | | | LABORATORY | | | | | | SERVICES, | | | | | | CORE | | + + + + + + | MCHC | 33.0 (L) | 33.4 - 35.5 | [facility] | | | | | g/dL | LABORATORY | | | | | | SERVICES, | | | | | | CORE | | + + + + + + | RDW | 13.9 | 11.5 - 15.0 % | [facility] | | | | | | LABORATORY | | | | | | SERVICES, | | | | | | CORE | | + + + + + + | PLATELET | 243 | 150 - 400 K/cu | [facility] | | | COUNT | | mm | LABORATORY | | | | | | SERVICES, | | | | | | CORE | | + + + + + + + + | Specimen | + + | Blood - Blood | + + + + + + + | Performing | Address | City/State/Zipcode | Phone Number | | Organization | | | | + + + + + | [facility] | [address] | [place] [address] | | | SERVICES, CORE | [address] | | | + + + + + CBC (12/23/2011 4:56 AM PDT) + + + + + + | Component | Value | Ref Range | Performed | Pathologist | | | | | At | Signature | + + + + + + | WHITE CELL | 4.3 (L) | 4.4 - 11.0 K/cu | [facility] | | | COUNT | | mm | LABORATORY | | | | | | SERVICES, | | | | | | CORE | | + + + + + + | RED CELL | 3.65 (L) | 4.00 - 5.20 | [facility] | | | COUNT | | M/cu mm | LABORATORY | | | | | | SERVICES, | | | | | | CORE | | + + + + + + | HEMOGLOBIN | 10.9 (L) | 12.0 - 16.0 | [facility] | | | | | g/dL | LABORATORY | | | | | | SERVICES, | | | | | | CORE | | + + + + + + | HEMATOCRIT | 33.1 (L) | 36.0 - 46.0 % | [facility] | | | | | | LABORATORY | | | | | | SERVICES, | | | | | | CORE | | + + + + + + | MCV | 90.7 | 80.0 - 96.0 fL | [facility] | | | | | | LABORATORY | | | | | | SERVICES, | | | | | | CORE | | + + + + + + | MCHC | 33.0 (L) | 33.4 - 35.5 | [facility] | | | | | g/dL | LABORATORY | | | | | | SERVICES, | | | | | | CORE | | + + + + + + | RDW | 13.3 | 11.5 - 15.0 % | [facility] | | | | | | LABORATORY | | | | | | SERVICES, | | | | | | CORE | | + + + + + + | PLATELET | 180 | 150 - 400 K/cu | [facility] | | | COUNT | | mm | LABORATORY | | | | | | SERVICES, | | | | | | CORE | | + + + + + + + + | Specimen | + + | Blood - Blood | + + + + + + + | Performing | Address | City/State/Zipcode | Phone Number | | Organization | | | | + + + + + | [facility] | [address] | [place] [address] | | | SERVICES, CORE | [address] | | | + + + + + MAGNESIUM, PLASMA (12/23/2011 4:56 AM PDT) + +---------+ + + + | Component | Value | Ref Range | Performed | Pathologist | | | | | At | Signature | + +---------+ + + + | MAGNESIUM,P | 1.6 (L) | 1.8 - 2.5 mg/dL | [facility] | | | LASMA | | | LABORATORY | | | | | | CESAR, | | | | | | CORE | | + +---------+ + + + + + | Specimen | + + | Blood - Blood | + + + + + + + | Performing | Address | City/State/Zipcode | Phone Number | | Organization | | | | + + + + + | [facility] | [address] | [place] [address] | | | SERVICES, CORE | [address] | | | + + + + + RENAL FUNCTION SET (NA,K,CL,CO2,BUN,CREAT,GLUC,CA,PHOS,ALB ) (12/23/2011 4:56 AM PDT) + +---------+ + + + | Component | Value | Ref Range | Performed | Pathologist | | | | | At | Signature | + +---------+ + + + | GLUCOSE, | 87 | 60 - 99 mg/dL | [facility] | | | PLASMA | | | LABORATORY | | | (LAB) | | | SERVICES, | | | | | | CORE | | + +---------+ + + + | BUN, PLASMA | 4 (L) | 6 - 20 mg/dL | [facility] | | | (LAB) | | | LABORATORY | | | | | | SERVICES, | | | | | | CORE | | + +---------+ + + + | CREATININE | 0.63 | 0.60 - 1.10 | [facility] | | | PLASMA | | mg/dL | LABORATORY | | | (LAB) | | | SERVICES, | | | | | | CORE | | + +---------+ + + + | SODIUM, | 141 | 136 - 145 | [facility] | | | PLASMA | | mmol/L | LABORATORY | | | (LAB) | | | SERVICES, | | | | | | CORE | | + +---------+ + + + | POTASSIUM, | 3.3 (L) | 3.4 - 5.0 | [facility] | | | PLASMA | | mmol/L | LABORATORY | | | (LAB) | | | SERVICES, | | | | | | CORE | | + +---------+ + + + | CHLORIDE, | 102 | 97 - 108 mmol/L | [facility] | | | PLASMA | | | LABORATORY | | | (LAB) | | | SERVICES, | | | | | | CORE | | + +---------+ + + + | TOTAL CO2, | 29 | 21 - 32 mmol/L | [facility] | | | PLASMA | | | LABORATORY | | | (LAB) | | | SERVICES, | | | | | | CORE | | + +---------+ + + + | CALCIUM, | 8.4 (L) | 8.6 - 10.2 | [facility] | | | PLASMA | | mg/dL | LABORATORY | | | (LAB) | | | SERVICES, | | | | | | CORE | | + +---------+ + + + | ALBUMIN, | 2.9 (L) | 3.5 - 4.7 g/dL | [facility] | | | PLASMA | | | LABORATORY | | | (LAB) | | | SERVICES, | | | | | | CORE | | + +---------+ + + + | PHOSPHORUS, | 2.3 (L) | 2.4 - 4.7 mg/dL | [facility] | | | PLASMA | | | LABORATORY | | | (LAB) | | | SERVICES, | | | | | | CORE | | + +---------+ + + + | POTASSIUM | No Hemo | | [facility] | | | CMNT | | | LABORATORY | | | | | | SERVICES, | | | | | | CORE | | + +---------+ + + + | ANION GAP | 10 | 4 - 11 mmol/L | [facility] | | | | | | LABORATORY | | | | | | SERVICES, | | | | | | CORE | | + +---------+ + + + | ANION | 12 (H) | 4 - 11 mmol/L | [facility] | | | GAP(ALB | | | LABORATORY | | | CORRECTED) | | | SERVICES, | | | | | | CORE | | + +---------+ + + + + + | Specimen | + + | Blood - Blood | + + + + + + + | Performing | Address | City/State/Zipcode | Phone Number | | Organization | | | | + + + + + | [facility] | [address] | [place] [address] | | | SERVICES, [place] | [address] | | | + + + + + CULTURE, STOOL BACTI (12/22/2011 11:02 AM PDT) + + + + + + | Component | Value | Ref Range | Performed | Pathologist | | | | | At | Signature | + + + + + + | CULTURE | C StoolSource: | | [facility] - | | | RESULT | Stool | | [facility] - | | | | Final | | [facility] | | | | CULTURE | | | | | | RESULT:Salmonella, | | | | | | Shigella, Campylobacter | | | | | | and E.coli O157:H7 not | | | | | | isolated Unable to rule | | | | | | out Shiga toxins 1 and 2 | | | | + + + + + + + + | Specimen | + + | Stool - Rectum | + + + + + + + | Performing | Address | City/State/Zipcode | Phone Number | | Organization | | | | + + + + + | [facility] | [id number] | [place] [address] | | | [facility] | | | | + + + + + X-RAY PORTABLE CHEST 1 VIEW (12/22/2011 9:39 AM PDT) + + + + + + | Component | Value | Ref Range | Performed | Pathologist | | | | | At | Signature | + + + + + + | X-RAY | EXAM: MD CHEST 1 VIEW, | | | | | PORTABLE | 12/22/11 COMPARISON: | | | | | CHEST 1 | None HISTORY: | | | | | VIEW | 61-year-old female | | | | | | admitted for recurrent | | | | | | incisional herniawith | | | | | | right lower quadrant | | | | | | abdominal | | | | | | pain. Febrile. | | | | | | FINDINGS: There is trace | | | | | | bibasilar linear | | | | | | atelectasis, otherwise | | | | | | the lungs | | | | | | areclear. There is no | | | | | | pleural effusion or | | | | | | pneumothorax. Thecard | | | | | | iomediastinal contour is | | | | | | normal. The osseous | | | | | | structures | | | | | | areunremarkable. | | | | | | IMPRESSION: Trace | | | | | | bibasilar linear | | | | | | atelectasis, otherwise | | | | | | clear lungs. Attending | | | | | | Radiologists: Dwight Chakraborty | | | | | | Anne KaiserAuthor: | | | | | | MIRIAM PATEL MD I have | | | | | | personally viewed this | | | | | | procedure/exam, reviewed | | | | | | this report,and made | | | | | | changes to it where | | | | | | appropriate. | | | | | | Final/Electronically | | | | | | signed / Dwight Chakraborty | | | | | | Job 12/22/2011 | | | | | | 15:11 PM | | | | + + + + + + + + | Specimen | + + | | + + + +---------+ + + | Performing | Address | City/State/Zipcode | Phone Number | | Organization | | | | + +---------+ + + | [facility] | | | | | RADIOLOGY | | | | + +---------+ + + CBC (12/22/2011 8:01 AM PDT) + + + + + + | Component | Value | Ref Range | Performed | Pathologist | | | | | At | Signature | + + + + + + | WHITE CELL | 8.3 | 4.4 - 11.0 K/cu | [facility] | | | COUNT | | mm | LABORATORY | | | | | | SERVICES, | | | | | | CORE | | + + + + + + | RED CELL | 3.59 (L) | 4.00 - 5.20 | [facility] | | | COUNT | | M/cu mm | LABORATORY | | | | | | SERVICES, | | | | | | CORE | | + + + + + + | HEMOGLOBIN | 10.9 (L) | 12.0 - 16.0 | [facility] | | | | | g/dL | LABORATORY | | | | | | SERVICES, | | | | | | CORE | | + + + + + + | HEMATOCRIT | 32.8 (L) | 36.0 - 46.0 % | [facility] | | | | | | LABORATORY | | | | | | SERVICES, | | | | | | CORE | | + + + + + + | MCV | 91.2 | 80.0 - 96.0 fL | [facility] | | | | | | LABORATORY | | | | | | SERVICES, | | | | | | CORE | | + + + + + + | MCHC | 33.1 (L) | 33.4 - 35.5 | [facility] | | | | | g/dL | LABORATORY | | | | | | SERVICES, | | | | | | CORE | | + + + + + + | RDW | 13.6 | 11.5 - 15.0 % | [facility] | | | | | | LABORATORY | | | | | | SERVICES, | | | | | | CORE | | + + + + + + | PLATELET | 160 | 150 - 400 K/cu | [facility] | | | COUNT | | mm | LABORATORY | | | | | | SERVICES, | | | | | | CORE | | + + + + + + + + | Specimen | + + | Blood - Blood | + + + + + + + | Performing | Address | City/State/Zipcode | Phone Number | | Organization | | | | + + + + + | [facility] | [address] | [place] [address] | | | SERVICES, CORE | [address] | | | + + + + + URINE, MICROSCOPIC EXAM (12/22/2011 3:08 AM PDT) + +---------+ + + + | Component | Value | Ref Range | Performed | Pathologist | | | | | At | Signature | + +---------+ + + + | RED CELLS | 1 | 0 - 3 /hpf | [facility] | | | | | | LABORATORY | | | | | | SERVICES, | | | | | | CORE | | + +---------+ + + + | WHITE CELLS | 4 | 0 - 5 /hpf | [facility] | | | | | | LABORATORY | | | | | | SERVICES, | | | | | | CORE | | + +---------+ + + + | BACTERIA | None | None /hpf | [facility] | | | | | | LABORATORY | | | | | | SERVICES, | | | | | | CORE | | + +---------+ + + + | YEAST (LAB) | None | None /hpf | [facility] | | | | | | LABORATORY | | | | | | SERVICES, | | | | | | CORE | | + +---------+ + + + | SQUAMOUS | Few (A) | None /hpf | [facility] | | | EPITHELIAL | | | LABORATORY | | | | | | SERVICES, | | | | | | CORE | | + +---------+ + + + | MUCOUS | Few (A) | None /hpf | [facility] | | | | | | LABORATORY | | | | | | SERVICES, | | | | | | CORE | | + +---------+ + + + | TRICHOMONAS | None | None /hpf | [facility] | | | | | | LABORATORY | | | | | | SERVICES, | | | | | | CORE | | + +---------+ + + + | NON-SQUAMOU | Few (A) | None /hpf | [facility] | | | S EPITH | | | LABORATORY | | | | | | SERVICES, | | | | | | CORE | | + +---------+ + + + | HYALINE | 0 | 0 - 2 /lpf | [facility] | | | CASTS | | | LABORATORY | | | | | | SERVICES, | | | | | | CORE | | + +---------+ + + + | GRANULAR | 0 | 0 - 2 /lpf | [facility] | | | CASTS | | | LABORATORY | | | | | | SERVICES, | | | | | | CORE | | + +---------+ + + + | CELLULAR | 0 | <=0 /lpf | [facility] | | | CASTS | | | LABORATORY | | | | | | SERVICES, | | | | | | CORE | | + +---------+ + + + | TRIPLE P04 | None | None /hpf | [facility] | | | CRYSTALS | | | LABORATORY | | | | | | SERVICES, | | | | | | CORE | | + +---------+ + + + | CALCIUM | None | None /hpf | [facility] | | | OXALATE | | | LABORATORY | | | RENEE | | | SERVICES, | | | | | | CORE | | + +---------+ + + + | URIC ACID | None | None /hpf | [facility] | | | CRYSTALS | | | LABORATORY | | | | | | SERVICES, | | | | | | CORE | | + +---------+ + + + | AMORPHOUS | None | None /hpf | [facility] | | | CRYSTALS | | | LABORATORY | | | | | | SERVICES, | | | | | | CORE | | + +---------+ + + + + + | Specimen | + + | Urine - Urine | + + + + + + + | Performing | Address | City/State/Zipcode | Phone Number | | Organization | | | | + + + + + | [facility] | [address] | [place] [address] | | | SERVICES, CORE | [address] | | | + + + + + ERIN PHAM ONLY (12/22/2011 3:08 AM PDT) + + + + + + | Component | Value | Ref Range | Performed | Pathologist | | | | | At | Signature | + + + + + + | COLOR(UR) | Yellow | (none) | [facility] | | | | | | LABORATORY | | | | | | SERVICES, | | | | | | CORE | | + + + + + + | APPEARANCE | Clear | (none) | [facility] | | | | | | LABORATORY | | | | | | SERVICES, | | | | | | CORE | | + + + + + + | GLUCOSE(UR) | Negative | Negative, 50.0 | [facility] | | | | | mg/dL | LABORATORY | | | | | | SERVICES, | | | | | | CORE | | + + + + + + | PROTEIN(LAB | Negative | Negative, 30.0 | [facility] | | | ) | | mg/dL | LABORATORY | | | | | | SERVICES, | | | | | | CORE | | + + + + + + | BILIRUBIN | Negative | Negative | [facility] | | | | | | LABORATORY | | | | | | SERVICES, | | | | | | CORE | | + + + + + + | UROBILINOGE | <2.0 | <2.0 mg/dL | [facility] | | | N | | | LABORATORY | | | | | | SERVICES, | | | | | | CORE | | + + + + + + | PH(UR) | 6.0 | 5.0 - 8.0 | [facility] | | | | | | LABORATORY | | | | | | SERVICES, | | | | | | CORE | | + + + + + + | BLOOD | Negative | Negative | [facility] | | | | | | LABORATORY | | | | | | SERVICES, | | | | | | CORE | | + + + + + + | KETONES | 20.0 (A) | Negative mg/dL | [facility] | | | | | | LABORATORY | | | | | | SERVICES, | | | | | | CORE | | + + + + + + | NITRITES | Negative | Negative | [facility] | | | | | | LABORATORY | | | | | | SERVICES, | | | | | | CORE | | + + + + + + | LEUKOCYTE | Small (A) | Negative | [facility] | | | ESTERASE | | | LABORATORY | | | | | | SERVICES, | | | | | | CORE | | + + + + + + | SPECIFIC | 1.006 | 1.005 - 1.030 | [facility] | | | GRAVITY | | | LABORATORY | | | | | | SERVICES, | | | | | | CORE | | + + + + + + + + | Specimen | + + | Urine - Urine | + + + + + + + | Performing | Address | City/State/Zipcode | Phone Number | | Organization | | | | + + + + + | [facility] | [address] | [place] [address] | | | SERVICES, CORE | [address] | | | + + + + + CULTURE, BLOOD BACTI & YEAST [facility] (12/22/2011 1:37 AM PDT) + + + + + + | Component | Value | Ref Range | Performed | Pathologist | | | | | At | Signature | + + + + + + | BLOOD | Final Report:No Bacteria | Sent for | [facility] | | | CULTURE | or Yeast isolated at 5 | Subculture, No | LABORATORY | | | [facility] | days.Comment: This is a | growth to | SERVICES, | | | | corrected result. | date., Final | CORE | | | | Previous result was No | Report:No | | | | | growth to date. on | Bacteria or | | | | | 12/24/2011 0019. | Yeast isolated | | | | | | at 5 days. | | | + + + + + + + + | Specimen | + + | Blood - Blood | + + + + + + + | Performing | Address | City/State/Zipcode | Phone Number | | Organization | | | | + + + + + | [facility] | [address] | [place] [address] | | | SERVICES, CORE | [address] | | | + + + + + CULTURE, BLOOD BACTI & YEAST [facility] (12/22/2011 1:37 AM PDT) + + + + + + | Component | Value | Ref Range | Performed | Pathologist | | | | | At | Signature | + + + + + + | BLOOD | Final Report:No Bacteria | Sent for | [facility] | | | CULTURE | or Yeast isolated at 5 | Subculture, No | LABORATORY | | | [facility] | days.Comment: This is a | growth to | SERVICES, | | | | corrected result. | date., Final | CORE | | | | Previous result was No | Report:No | | | | | growth to date. on | Bacteria or | | | | | 12/24/2011t 0016. | Yeast isolated | | | | | | at 5 days. | | | + + + + + + + + | Specimen | + + | Blood - Blood | + + + + + + + | Performing | Address | City/State/Zipcode | Phone Number | | Organization | | | | + + + + + | [facility] | [address] | [place] [address] | | | SERVICES, CORE | [address] | | | + + + + + URINE SCREEN FOR CULTURE (12/21/2011 10:05 PM PDT) + + + + + + | Component | Value | Ref Range | Performed | Pathologist | | | | | At | Signature | + + + + + + | URINE | Negative | Negative | [facility] | | | SCREEN FOR | | | LABORATORY | | | CULTURE | | | SERVICES, | | | | | | CORE | | + + + + + + + + | Specimen | + + | Urine - Urine | + + + + + | Narrative | Performed At | + + + | Culture Screen Negative. Culture not indicated. | [facility] | | | LABORATORY | | | SERVICES, CORE | + + + + + + + + | Performing | Address | City/State/Zipcode | Phone Number | | Organization | | | | + + + + + | [facility] | [address] | [place] [address] | | | SERVICES, CORE | [address] | | | + + + + + UA, ERIN ONLY (12/21/2011 10:05 PM PDT) + + + + + + | Component | Value | Ref Range | Performed | Pathologist | | | | | At | Signature | + + + + + + | COLOR(UR) | Yellow | (none) | [facility] | | | | | | LABORATORY | | | | | | SERVICES, | | | | | | CORE | | + + + + + + | APPEARANCE | Sl.Cloudy | (none) | [facility] | | | | | | LABORATORY | | | | | | SERVICES, | | | | | | CORE | | + + + + + + | GLUCOSE(UR) | Negative | Negative, 50.0 | [facility] | | | | | mg/dL | LABORATORY | | | | | | SERVICES, | | | | | | CORE | | + + + + + + | PROTEIN(LAB | Negative | Negative, 30.0 | [facility] | | | ) | | mg/dL | LABORATORY | | | | | | SERVICES, | | | | | | CORE | | + + + + + + | BILIRUBIN | Negative | Negative | [facility] | | | | | | LABORATORY | | | | | | SERVICES, | | | | | | CORE | | + + + + + + | UROBILINOGE | <2.0 | <2.0 mg/dL | [facility] | | | N | | | LABORATORY | | | | | | SERVICES, | | | | | | CORE | | + + + + + + | PH(UR) | 5.0 | 5.0 - 8.0 | [facility] | | | | | | LABORATORY | | | | | | SERVICES, | | | | | | CORE | | + + + + + + | BLOOD | Negative | Negative | [facility] | | | | | | LABORATORY | | | | | | SERVICES, | | | | | | CORE | | + + + + + + | KETONES | 20.0 (A) | Negative mg/dL | [facility] | | | | | | LABORATORY | | | | | | SERVICES, | | | | | | CORE | | + + + + + + | NITRITES | Negative | Negative | [facility] | | | | | | LABORATORY | | | | | | SERVICES, | | | | | | CORE | | + + + + + + | LEUKOCYTE | Negative | Negative | [facility] | | | ESTERASE | | | LABORATORY | | | | | | SERVICES, | | | | | | CORE | | + + + + + + | SPECIFIC | 1.019 | 1.005 - 1.030 | [facility] | | | GRAVITY | | | LABORATORY | | | | | | SERVICES, | | | | | | CORE | | + + + + + + + + | Specimen | + + | Urine - Urine | + + + + + + + | Performing | Address | City/State/Zipcode | Phone Number | | Organization | | | | + + + + + | [facility] | [address] | [place] [address] | | | SERVICES, CORE | [address] | | | + + + + + 12 LEAD ECG (12/21/2011 8:47 PM PDT) + + + + + + | Component | Value | Ref Range | Performed | Pathologist | | | | | At | Signature | + + + + + + | VENTRICULAR | 69 | BPM | [facility] | | | RATE | | | OF | | | | | | CARDIOLOGY | | + + + + + + | ATRIAL RATE | 69 | BPM | [facility] | | | | | | OF | | | | | | CARDIOLOGY | | + + + + + + | P-R | 168 | ms | [facility] | | | INTERVAL | | | OF | | | | | | CARDIOLOGY | | + + + + + + | QRS | 96 | ms | [facility] | | | DURATION | | | OF | | | | | | CARDIOLOGY | | + + + + + + | QT | 398 | ms | [facility] | | | | | | OF | | | | | | CARDIOLOGY | | + + + + + + | QTC | 426 | ms | [facility] | | | | | | OF | | | | | | CARDIOLOGY | | + + + + + + | P AXIS | 53 | degrees | [facility] | | | | | | OF | | | | | | CARDIOLOGY | | + + + + + + | R AXIS | 32 | degrees | [facility] | | | | | | OF | | | | | | CARDIOLOGY | | + + + + + + | T AXIS | 94 | degrees | [facility] | | | | | | OF | | | | | | CARDIOLOGY | | + + + + + + | EKG | Normal sinus rhythmST & | | [facility] | | | DIAGNOSIS | T wave abnormality, | | OF | | | | consider lateral | | CARDIOLOGY | | | | ischemiaAbnormal ECG"I | | | | | | have personally | | | | | | interpreted this report, | | | | | | either alone or with a | | | | | | trainee."Confirmed by | | | | | | JANETTE GARCIA ([id number]) on | | | | | | 12/22/2011 9:19:33 PM | | | | + + + + + + + + | Specimen | + + | | + + + + + | Narrative | Performed At | + + + | Please click | [facility] | | on view image for the detailed interpretation from Neura results. | CARDIOLOGY | + + + + + + + + | Performing | Address | City/State/Zipcode | Phone Number | | Organization | | | | + + + + + | [facility] | [address] | [place], [place] | | | CARDIOLOGY | [address] | [phone] | | + + + + + CBC AND AUTO DIFF (12/21/2011 8:46 PM PDT) + + + + + + | Component | Value | Ref Range | Performed | Pathologist | | | | | At | Signature | + + + + + + | WHITE CELL | 10.6 | 4.4 - 11.0 K/cu | [facility] | | | COUNT | | mm | LABORATORY | | | | | | SERVICES, | | | | | | CORE | | + + + + + + | RED CELL | 3.84 (L) | 4.00 - 5.20 | [facility] | | | COUNT | | M/cu mm | LABORATORY | | | | | | SERVICES, | | | | | | CORE | | + + + + + + | HEMOGLOBIN | 11.7 (L) | 12.0 - 16.0 | [facility] | | | | | g/dL | LABORATORY | | | | | | SERVICES, | | | | | | CORE | | + + + + + + | HEMATOCRIT | 35.3 (L) | 36.0 - 46.0 % | [facility] | | | | | | LABORATORY | | | | | | SERVICES, | | | | | | CORE | | + + + + + + | MCV | 91.8 | 80.0 - 96.0 fL | [facility] | | | | | | LABORATORY | | | | | | SERVICES, | | | | | | CORE | | + + + + + + | MCHC | 33.1 (L) | 33.4 - 35.5 | [facility] | | | | | g/dL | LABORATORY | | | | | | SERVICES, | | | | | | CORE | | + + + + + + | RDW | 13.8 | 11.5 - 15.0 % | [facility] | | | | | | LABORATORY | | | | | | SERVICES, | | | | | | CORE | | + + + + + + | PLATELET | 155 | 150 - 400 K/cu | [facility] | | | COUNT | | mm | LABORATORY | | | | | | SERVICES, | | | | | | CORE | | + + + + + + | NEUTROPHIL | 82 (H) | 50 - 70 % | [facility] | | | % | | | LABORATORY | | | | | | SERVICES, | | | | | | CORE | | + + + + + + | LYMPHOCYTE | 13 (L) | 18 - 42 % | [facility] | | | % | | | LABORATORY | | | | | | SERVICES, | | | | | | CORE | | + + + + + + | MONOCYTE % | 5 | 2 - 8 % | [facility] | | | | | | LABORATORY | | | | | | SERVICES, | | | | | | CORE | | + + + + + + | EOS % | 0 (L) | 1 - 3 % | [facility] | | | | | | LABORATORY | | | | | | SERVICES, | | | | | | CORE | | + + + + + + | BASO % | 0 | 0 - 2 % | [facility] | | | | | | LABORATORY | | | | | | SERVICES, | | | | | | CORE | | + + + + + + | NEUTROPHIL | 8.7 (H) | 1.8 - 7.7 K/cu | [facility] | | | # | | mm | LABORATORY | | | | | | SERVICES, | | | | | | CORE | | + + + + + + | LYMPHOCYTE | 1.4 | 1.0 - 4.8 K/cu | [facility] | | | # | | mm | LABORATORY | | | | | | SERVICES, | | | | | | CORE | | + + + + + + | MONOCYTE # | 0.5 | 0.0 - 0.8 K/cu | [facility] | | | | | mm | LABORATORY | | | | | | SERVICES, | | | | | | CORE | | + + + + + + | EOS # | 0.0 | 0.0 - 0.5 K/cu | [facility] | | | | | mm | LABORATORY | | | | | | SERVICES, | | | | | | CORE | | + + + + + + | BASO # | 0.0 | 0.0 - 0.2 K/cu | [facility] | | | | | mm | LABORATORY | | | | | | SERVICES, | | | | | | CORE | | + + + + + + + + | Specimen | + + | Blood - Blood | + + + + + + + | Performing | Address | City/State/Zipcode | Phone Number | | Organization | | | | + + + + + | [facility] | [address] | [place] [address] | | | SERVICES, CORE | [address] | | | + + + + + INR (12/21/2011 8:46 PM PDT) + +-------+ + + + | Component | Value | Ref Range | Performed | Pathologist | | | | | At | Signature | + +-------+ + + + | INR | 1.18 | 0.90 - 1.20 INR | [facility] | | | | | | LABORATORY | | | | | | SERVICES, | | | | | | CORE | | + +-------+ + + + + + | Specimen | + + | Blood - Blood | + + + + + | Narrative | Performed At | + + + | INR Therapeutic ranges for full anticoagulation: INR for | [facility] | | Venous Thromboembolism (2.0 - 3.0) INR INR | LABORATORY | | for most patients with mech. valves (2.5 - 3.5) INR | SERVICES, CORE | + + + + + + + + | Performing | Address | City/State/Zipcode | Phone Number | | Organization | | | | + + + + + | [facility] | [address] | [place] [address] | | | SERVICES, CORE | [address] | | | + + + + + RENAL FUNCTION SET (NA,K,CL,CO2,BUN,CREAT,GLUC,CA,PHOS,ALB ) (12/21/2011 8:46 PM PDT) + +---------+ + + + | Component | Value | Ref Range | Performed | Pathologist | | | | | At | Signature | + +---------+ + + + | GLUCOSE, | 84 | 60 - 99 mg/dL | [facility] | | | PLASMA | | | LABORATORY | | | (LAB) | | | CESAR, | | | | | | CORE | | + +---------+ + + + | BUN, PLASMA | 7 | 6 - 20 mg/dL | [facility] | | | (LAB) | | | LABORATORY | | | | | | SERVICES, | | | | | | CORE | | + +---------+ + + + | CREATININE | 0.61 | 0.60 - 1.10 | [facility] | | | PLASMA | | mg/dL | LABORATORY | | | (LAB) | | | SERVICES, | | | | | | CORE | | + +---------+ + + + | SODIUM, | 137 | 136 - 145 | [facility] | | | PLASMA | | mmol/L | LABORATORY | | | (LAB) | | | SERVICES, | | | | | | CORE | | + +---------+ + + + | POTASSIUM, | 4.3 | 3.4 - 5.0 | [facility] | | | PLASMA | | mmol/L | LABORATORY | | | (LAB) | | | SERVICES, | | | | | | CORE | | + +---------+ + + + | CHLORIDE, | 102 | 97 - 108 mmol/L | [facility] | | | PLASMA | | | LABORATORY | | | (LAB) | | | SERVICES, | | | | | | CORE | | + +---------+ + + + | TOTAL CO2, | 29 | 21 - 32 mmol/L | [facility] | | | PLASMA | | | LABORATORY | | | (LAB) | | | SERVICES, | | | | | | CORE | | + +---------+ + + + | CALCIUM, | 8.1 (L) | 8.6 - 10.2 | [facility] | | | PLASMA | | mg/dL | LABORATORY | | | (LAB) | | | SERVICES, | | | | | | CORE | | + +---------+ + + + | ALBUMIN, | 2.9 (L) | 3.5 - 4.7 g/dL | [facility] | | | PLASMA | | | LABORATORY | | | (LAB) | | | SERVICES, | | | | | | CORE | | + +---------+ + + + | PHOSPHORUS, | 3.5 | 2.4 - 4.7 mg/dL | [facility] | | | PLASMA | | | LABORATORY | | | (LAB) | | | SERVICES, | | | | | | CORE | | + +---------+ + + + | POTASSIUM | No Hemo | | [facility] | | | CMNT | | | LABORATORY | | | | | | SERVICES, | | | | | | CORE | | + +---------+ + + + | ANION GAP | 6 | 4 - 11 mmol/L | [facility] | | | | | | LABORATORY | | | | | | SERVICES, | | | | | | CORE | | + +---------+ + + + | ANION | 8 | 4 - 11 mmol/L | [facility] | | | GAP(ALB | | | LABORATORY | | | CORRECTED) | | | SERVICES, | | | | | | CORE | | + +---------+ + + + + + | Specimen | + + | Blood - Blood | + + + + + + + | Performing | Address | City/State/Zipcode | Phone Number | | Organization | | | | + + + + + | [facility] | [address] | [place] [address] | | | SERVICES, CORE | [address] | | | + + + + + BASIC METABOLIC SET (NA, K, CL, TCO2, BUN, CR, GLU, CA) (12/21/2011 8:46 PM PDT) + +---------+ + + + | Component | Value | Ref Range | Performed | Pathologist | | | | | At | Signature | + +---------+ + + + | GLUCOSE, | 84 | 60 - 99 mg/dL | [facility] | | | PLASMA | | | LABORATORY | | | (LAB) | | | SERVICES, | | | | | | CORE | | + +---------+ + + + | BUN, PLASMA | 7 | 6 - 20 mg/dL | [facility] | | | (LAB) | | | LABORATORY | | | | | | SERVICES, | | | | | | CORE | | + +---------+ + + + | CREATININE | 0.61 | 0.60 - 1.10 | [facility] | | | PLASMA | | mg/dL | LABORATORY | | | (LAB) | | | SERVICES, | | | | | | CORE | | + +---------+ + + + | SODIUM, | 137 | 136 - 145 | [facility] | | | PLASMA | | mmol/L | LABORATORY | | | (LAB) | | | SERVICES, | | | | | | CORE | | + +---------+ + + + | POTASSIUM, | 4.3 | 3.4 - 5.0 | [facility] | | | PLASMA | | mmol/L | LABORATORY | | | (LAB) | | | SERVICES, | | | | | | CORE | | + +---------+ + + + | CHLORIDE, | 102 | 97 - 108 mmol/L | [facility] | | | PLASMA | | | LABORATORY | | | (LAB) | | | SERVICES, | | | | | | CORE | | + +---------+ + + + | TOTAL CO2, | 29 | 21 - 32 mmol/L | [facility] | | | PLASMA | | | LABORATORY | | | (LAB) | | | SERVICES, | | | | | | CORE | | + +---------+ + + + | CALCIUM, | 8.1 (L) | 8.6 - 10.2 | [facility] | | | PLASMA | | mg/dL | LABORATORY | | | (LAB) | | | SERVICES, | | | | | | CORE | | + +---------+ + + + | ANION GAP | 6 | 4 - 11 mmol/L | [facility] | | | | | | LABORATORY | | | | | | SERVICES, | | | | | | CORE | | + +---------+ + + + | POTASSIUM | No Hemo | | [facility] | | | CMNT | | | LABORATORY | | | | | | SERVICES, | | | | | | CORE | | + +---------+ + + + + + | Specimen | + + | Blood - Blood | + + + + + + + | Performing | Address | City/State/Zipcode | Phone Number | | Organization | | | | + + + + + | [facility] | [address] | [place] [address] | | | SERVICES, [place] | [address] | | | + + + + + RADIOLOGY (12/21/2011 12:00 AM PDT) + + + | Narrative | Performed At | + + + | | | | | | + + + + + | Procedure Note | + + | Fanny Pelletier - 12/30/2011 10:47 AM PST | + + documented in this encounter Visit Diagnoses + + | Diagnosis | + + | Diverticulosis of small intestine - Primary Diverticulosis of small intestine | | (without mention of hemorrhage) | + + | Abdominal pain Abdominal pain, unspecified site | + + | Arthralgia Pain in joint, site unspecified | + + | Diverticula of small intestine Diverticulosis of small intestine (without mention of | | hemorrhage) | + + | Hypokalemia Hypopotassemia | + + | Rheumatoid arthritis (HCC) | + + | Tobacco abuse Tobacco use disorder | + + | Fever Fever, unspecified | + + documented in this encounter Administered Medications + +--------+ +--------+------+------+ | Medication Order | MAR | Action | Dose | Rate | Site | | | Action | Date | | | | + +--------+ +--------+------+------+ | acetaminophen (aka TYLENOL) | Given | 12/23/19 | 650 mg | | | | tablet 650 mg 650 mg, oral, | | 12 9:10 | | | | | EVERY 6 HOURS NEEDED, Starting | | AM PDT | | | | | 12/21/11 at 2015, Until Fri | | | | | | | 12/23/11 at 1536, mild pain | | | | | | + +--------+ +--------+------+------+ +-------+ +--------+---+---+ | Given | 12/22/19 | 650 mg | | | | | 12 8:25 | | | | | | PM PDT | | | | +-------+ +--------+---+---+ | Given | 12/22/19 | 650 mg | | | | | 12 3:17 | | | | | | PM PDT | | | | +-------+ +--------+---+---+ +---+---+ | | | +---+---+ + +---------+ +--------+--------+---+ | ciprofloxacin (aka CIPRO) IV | New Bag | 12/23/19 | 400 mg | mL/hr | | | 400 mg 400 mg, intravenous, | | 12 1:50 | | | | | EVERY 12 HOURS, First dose on Lori | | AM PDT | | | | | 12/22/11 at 0145, Until | | | | | | | Discontinued | | | | | | + +---------+ +--------+--------+---+ +---------+ +--------+--------+---+ | New Bag | 12/22/19 | 400 mg | mL/hr | | | | 12 3:13 | | | | | | PM PDT | | | | +---------+ +--------+--------+---+ | New Bag | 12/22/19 | 400 mg | mL/hr | | | | 12 2:30 | | | | | | AM PDT | | | | +---------+ +--------+--------+---+ +---+---+ | | | +---+---+ + +-------+ +--------+---+---+ | ciprofloxacin (aka CIPRO) | Given | 12/24/19 | 500 mg | | | | tablet 500 mg 500 mg, oral, | | 12 9:32 | | | | | TWICE DAILY, 12 doses, First dose | | AM PDT | | | | | on Mon12/23/11 at 0845, Last | | | | | | | dose on Mon12/28/11 at 2100 | | | | | | + +-------+ +--------+---+---+ +-------+ +--------+---+---+ | Given | 12/23/19 | 500 mg | | | | | 12 8:17 | | | | | | PM PDT | | | | +-------+ +--------+---+---+ | Given | 12/23/19 | 500 mg | | | | | 12 9:11 | | | | | | AM PDT | | | | +-------+ +--------+---+---+ +---+---+ | | | +---+---+ + +-------+ +-------+---+---+ | enoxaparin (aka LOVENOX) | Given | 12/23/19 | 40 mg | | | | injection 40 mg 40 mg, | | 12 8:18 | | | | | subcutaneous, EVERY EVENING, | | PM PDT | | | | | First dose on Mon12/22/11 at | | | | | | | 2100, Until Discontinued | | | | | | + +-------+ +-------+---+---+ +-------+ +-------+---+---+ | Given | 12/22/19 | 40 mg | | | | | 12 8:24 | | | | | | PM PDT | | | | +-------+ +-------+---+---+ +---+---+ | | | +---+---+ + +-------+ +-------+---+---+ | famotidine (aka PEPCID) tablet | Given | 12/24/19 | 20 mg | | | | 20 mg 20 mg, oral, TWICE DAILY, | | 12 9:33 | | | | | First dose on Mon12/23/11 at | | AM PDT | | | | | 2100, Until Discontinued | | | | | | + +-------+ +-------+---+---+ +-------+ +-------+---+---+ | Given | 12/23/19 | 20 mg | | | | | 12 8:18 | | | | | | PM PDT | | | | +-------+ +-------+---+---+ +---+---+ | | | +---+---+ + +---------+ +-------+-------+---+ | famotidine in NS (aka PEPCID) | New Bag | 12/23/19 | 20 mg | 200 | | | IV 20 mg 20 mg, intravenous, | | 12 9:10 | | mL/hr | | | EVERY 12 HOURS, First dose on Lori | | AM PDT | | | | | 12/22/11 at 1400, Until | | | | | | | Discontinued | | | | | | + +---------+ +-------+-------+---+ +---------+ +-------+-------+---+ | New Bag | 12/22/19 | 20 mg | 200 | | | | 12 8:24 | | mL/hr | | | | PM PDT | | | | +---------+ +-------+-------+---+ | New Bag | 12/22/19 | 20 mg | 200 | | | | 12 1:35 | | mL/hr | | | | PM PDT | | | | +---------+ +-------+-------+---+ +---+---+ | | | +---+---+ + +-------+ +---------+---+---+ | HYDROcodone-acetaminophen (aka | Given | 12/24/19 | 2 | | | | NORCO) 5-325 mg tablet 1-2 Tab | | 12 9:33 | tablets | | | | 1-2 tablet, oral, EVERY 4 HOURS | | AM PDT | | | | | NEEDED, Starting 12/23/11 | | | | | | | at 1533, Until 12/24/11 at | | | | | | | 1824, severe pain, WATCH TYLENOL | | | | | | | INTAKE. | | | | | | + +-------+ +---------+---+---+ +-------+ + +---+---+ | Given | 12/24/19 | 1 tablet | | | | | 12 5:17 | | | | | | AM PDT | | | | +-------+ + +---+---+ | Given | 12/23/19 | 2 | | | | | 12 8:18 | tablets | | | | | PM PDT | | | | +-------+ + +---+---+ +---+---+ | | | +---+---+ + +---------+ +------+--------+---+ | HYDROmorphone (aka DILAUDID) | New Bag | 12/23/19 | 1 mg | mL/hr | | | injection 0.2-1 mg 0.2-1 mg, | | 12 1:45 | | | | | intravenous, EVERY 2 HOURS | | PM PDT | | | | | NEEDED, Starting Mon12/21/11 at | | | | | | | 2014, Until Mon12/23/11 at 1535, | | | | | | | moderate pain | | | | | | + +---------+ +------+--------+---+ +---------+ +------+--------+---+ | New Bag | 12/23/19 | 1 mg | mL/hr | | | | 12 11:58 | | | | | | AM PDT | | | | +---------+ +------+--------+---+ | New Bag | 12/23/19 | 1 mg | mL/hr | | | | 12 9:10 | | | | | | AM PDT | | | | +---------+ +------+--------+---+ +---+---+ | | | +---+---+ + +---------+ +-------+-------+---+ | lactated ringers IV 100 mL/hr, | New Bag | 12/23/19 | 100 | 100 | | | intravenous, CONTINUOUS, | | 12 11:01 | mL/hr | mL/hr | | | Starting 12/21/11 at 2115, | | AM PDT | | | | | Until Mon12/23/11 at 1535 | | | | | | + +---------+ +-------+-------+---+ + + +-------+-------+---+ | Restarted | 12/22/19 | 100 | 100 | | | | 12 3:12 | mL/hr | mL/hr | | | | PM PDT | | | | + + +-------+-------+---+ | New Bag | 12/22/19 | 100 | 100 | | | | 12 8:55 | mL/hr | mL/hr | | | | AM PDT | | | | + + +-------+-------+---+ +---+---+ | | | +---+---+ + +---------+ +-----+--------+---+ | magnesium sulfate IV 4 g 4 g, | New Bag | 12/23/19 | 4 g | mL/hr | | | intravenous, ONCE, 1 dose, Fri | | 12 9:48 | | | | | 12/23/11 at 1000 | | AM PDT | | | | + +---------+ +-----+--------+---+ +---+---+ | | | +---+---+ + +---------+ +--------+--------+---+ | metroNIDAZOLE (aka FLAGYL) IV | New Bag | 12/23/19 | 500 mg | mL/hr | | | 500 mg 500 mg, intravenous, | | 12 3:11 | | | | | EVERY 8 HOURS, First dose on Lori | | AM PDT | | | | | 12/22/11 at 0145, Until | | | | | | | Discontinued | | | | | | + +---------+ +--------+--------+---+ +---------+ +--------+--------+---+ | New Bag | 12/22/19 | 500 mg | mL/hr | | | | 12 5:15 | | | | | | PM PDT | | | | +---------+ +--------+--------+---+ | New Bag | 12/22/19 | 500 mg | mL/hr | | | | 12 10:19 | | | | | | AM PDT | | | | +---------+ +--------+--------+---+ +---+---+ | | | +---+---+ + +-------+ +--------+---+---+ | metroNIDAZOLE (aka FLAGYL) | Given | 12/24/19 | 500 mg | | | | tablet 500 mg 500 mg, oral, | | 12 9:32 | | | | | THREE TIMES DAILY, First dose on | | AM PDT | | | | | 12/23/11 at 1030, Until | | | | | | | Discontinued | | | | | | + +-------+ +--------+---+---+ +-------+ +--------+---+---+ | Given | 12/23/19 | 500 mg | | | | | 12 10:24 | | | | | | PM PDT | | | | +-------+ +--------+---+---+ | Given | 12/23/19 | 500 mg | | | | | 12 4:10 | | | | | | PM PDT | | | | +-------+ +--------+---+---+ +---+---+ | | | +---+---+ + + + +---------+---+---+ | nicotine (aka NICOTROL) 14 | Applied | 12/22/19 | 1 patch | | | | mg/24 hr 1 Patch 1 patch, | Patch | 12 8:53 | | | | | transdermal, DAILY, First dose on | | AM PDT | | | | | Lori 12/22/11 at 0900, Until | | | | | | | Discontinued | | | | | | + + + +---------+---+---+ +---+---+ | | | +---+---+ + +---------+ +------+--------+---+ | ondansetron (aka ZOFRAN) | New Bag | 12/22/19 | 4 mg | mL/hr | | | injection 4 mg 4 mg, | | 12 3:17 | | | | | intravenous, EVERY 12 HOURS | | PM PDT | | | | | NEEDED, Starting 12/21/11 at | | | | | | | 2015, Until 12/24/11 at 1824, | | | | | | | nausea/vomiting | | | | | | + +---------+ +------+--------+---+ +---+---+ | | | +---+---+ + +-------+ +--------+---+---+ | potassium & sodium phosphates | Given | 12/23/19 | 500 mg | | | | (tiffany Araujo PHOS NEUTRAL) tablet 500 | | 12 9:48 | | | | | mg 500 mg, oral, ONCE, 1 dose, | | AM PDT | | | | | 12/23/11 at 0930 | | | | | | + +-------+ +--------+---+---+ +---+---+ | | | +---+---+ + +-------+ +--------+---+---+ | potassium chloride SR (aka | Given | 12/23/19 | 20 mEq | | | | K-DUR) tablet 20 mEq 20 mEq, | | 12 11:58 | | | | | oral, TWICE DAILY, 2 doses, First | | AM PDT | | | | | dose on Mon12/23/11 at 1000, | | | | | | | Last dose on Mon12/23/11 at 1200 | | | | | | + +-------+ +--------+---+---+ +-------+ +--------+---+---+ | Given | 12/23/19 | 20 mEq | | | | | 12 9:48 | | | | | | AM PDT | | | | +-------+ +--------+---+---+ +---+---+ | | | +---+---+ + +-------+ +------+---+---+ | zolpidem (aka RAEGAN) tablet 5 | Given | 12/23/19 | 5 mg | | | | mg 5 mg, oral, AT BEDTIME | | 12 8:18 | | | | | NEEDED, Starting [facility] 12/22/11 at | | PM PDT | | | | | 1813, Until 12/24/11 at 1824, | | | | | | | insomnia | | | | | | + +-------+ +------+---+---+ +-------+ +------+---+---+ | Given | 12/22/19 | 5 mg | | | | | 12 8:25 | | | | | | PM PDT | | | | +-------+ +------+---+---+ +---+---+ | | | +---+---+ documented in this encounter
--- OUTSIDE RECORDS SUMMARY | ~2018-06-30 | XMS | Encounter Summary ---
Demographics + + + | Address | [address] | | | [place] [address] | + + + | Home Phone | | + + + | Preferred Language | Unknown | + + + | Marital Status | | + + + | Jainism Affiliation | CATRACHITO | + + + | Race | or | + + + | Ethnic Group | Not or | + + + Author + + + | Author | [facility] | + + + | Organization | [facility] | + + + | Address | Unknown | + + + | Phone | Unavailable | + + + Support + + +---------+ + | Name | Relationship | Address | Phone | + + +---------+ + | Isaias Salas | ECON | Unknown | | + + +---------+ + Care Team Providers + +------+ + | Care Air Battle Manager Name | Role | Phone | + +------+ + | No Pcp Per Patient | PCP | Unavailable | + +------+ + Reason for Visit + + + | Reason | Comments | + + + | Schedule labs | | + + + Encounter Details +--------+ + + + + | Date | Type | Department | Care Team | Description | +--------+ + + + + | 12/14/ | Telephone | Rheumatology at | Ben Yolanda Dank, | Schedule labs | | 2010 | | Physicians Zack Huynh MD | | | | | [address] | | | | | | [facility] | | | | | | Mailcode: [id number] | | | | | | Physicians Zack | | | | | | [place], [place] | | | | | | [address] | | | | | | [phone] | | | +--------+ + + + [...] + | Diagnosis | + + | Arthralgia - Primary Pain in joint, site unspecified | + + documented in this encounter"
--- OUTSIDE RECORDS SUMMARY | ~2018-06-30 | XMS | Encounter Summary ---
Demographics + + + | Address | [address] | | | [place] [address] | + + + | Home Phone | | + + + | Preferred Language | Unknown | + + + | Marital Status | | + + + | Christianity Affiliation | CATRACHITO | + + + | Race | or | + + + | Ethnic Group | Not or | + + + Author + + + | Author | [facility] | + + + | Organization | [facility] | + + + | Address | Unknown | + + + | Phone | Unavailable | + + + Support + + +---------+ + | Name | Relationship | Address | Phone | + + +---------+ + | Isaias Salas | ECON | Unknown | | + + +---------+ + Care Team Providers + +------+ + | Care Ripsaw Grader Name | Role | Phone | + +------+ + | Jairon Siegel | PCP | | + +------+ + Encounter Details +--------+ + + + + | Date | Type | Department | Care Team | Description | +--------+ + + + + | 01/02/ | Abstract | Dig[facility]ive [facility] | Lucille De La Rosa, | | | 2011 | | [facility] [address] | [address] | | | | [address] | [place], [place] | | | | | Mailcode: [place] | [address] | | | | | [facility] | [phone] | | | | | [facility] | | | | | | [place], [place] | | | | | | [address] | | | | | | [phone] | | | +--------+ + + + [...]
--- OUTSIDE RECORDS SUMMARY | ~2018-06-30 | XMS | Encounter Summary ---
Demographics + + + | Address | [address] | | | [place] [address] | + + + | Home Phone | | + + + | Preferred Language | Unknown | + + + | Marital Status | | + + + | Gnosticist Affiliation | CATRACHITO | + + + | Race | or | + + + | Ethnic Group | Not or | + + + Author + + + | Author | [facility] | + + + | Organization | [facility] | + + + | Address | Unknown | + + + | Phone | Unavailable | + + + Support + + +---------+ + | Name | Relationship | Address | Phone | + + +---------+ + | Isaias Salas | ECON | Unknown | | + + +---------+ + Care Team Providers + +------+ + | Care Grease Remover Name | Role | Phone | + +------+ + | No Pcp Per Patient | PCP | Unavailable | + +------+ + Reason for Visit + + + | Reason | Comments | + + + | Hypokalemia | | + + + Encounter Details +--------+ + + + + | Date | Type | Department | Care Team | Description | +--------+ + + + + | 12/21/ | Slot Shift Manager | Rheumatology at | Yolanda Contreras, | Arthralgia (Primary | | 2010 | | Physicians Zack Huynh MD | Dx) | | | | [address] | | | | | | [facility] | | | | | | Mailcode: [id number] | | | | | | Phys[facility] | | | | | | [place], [place] | | | | | | [address] | | | | | | [phone] | | | +--------+ + + + [...]
--- OUTSIDE RECORDS SUMMARY | ~2018-06-30 | XMS | Encounter Summary ---
Demographics + + + | Address | [address] | | | [place] [address] | + + + | Home Phone | | + + + | Preferred Language | Unknown | + + + | Marital Status | | + + + | Anabaptist Affiliation | CATRACHITO | + + + | Race | or | + + + | Ethnic Group | Not or | + + + Author + + + | Author | [facility] | + + + | Organization | [facility] | + + + | Address | Unknown | + + + | Phone | Unavailable | + + + Support + + +---------+ + | Name | Relationship | Address | Phone | + + +---------+ + | Isaias Salas | ECON | Unknown | | + + +---------+ + Care Team Providers + +------+ + | Care Worm Farm Laborer Name | Role | Phone | + [...] | 2012 | | Center at [address] | [address] | | | | | [address] | [place], [place] | | | | | Mailcode: [place] | [address] | | | | | [facility] and | [phone] | | | | | [facility] 2 | | | | | | [place], [place] | | | | | | [address] | | | | | | [phone] | | | +--------+ + + + [...]
--- OUTSIDE RECORDS SUMMARY | ~2018-06-30 | XMS | Encounter Summary ---
Demographics + + + | Address | [address] | | | [place] [address] | + + + | Home Phone | | + + + | Preferred Language | Unknown | + + + | Marital Status | | + + + | Lutheran Affiliation | CATRACHITO | + + + | Race | or | + + + | Ethnic Group | Not or | + + + Author + + + | Author | [facility] | + + + | Organization | [facility] | + + + | Address | Unknown | + + + | Phone | Unavailable | + + + Support + + +---------+ + | Name | Relationship | Address | Phone | + + +---------+ + | Isaias Salas | ECON | Unknown | | + + +---------+ + Care Team Providers + +------+ + | Care Search Engine Optimization Analyst Name | Role | Phone | + [...] + + + + | 12/21/ | Bookkeeping Clerks Supervisor | Rheumatology at | Yolanda Contreras, | Arthralgia (Primary | | 2010 | | Physicians Zack Huynh MD | Dx) | | | | [address] | | | | | | [facility] | | | | | | Mailcode: PV35 | | | | | | Physicians Zack | | | | | | [place], [place] | | | | | | [address] | | | | | | [phone] | | | +--------+ + + + [...]
--- OUTSIDE RECORDS SUMMARY | ~2018-06-30 | XMS | Encounter Summary ---
Demographics + + + | Address | [address] | | | [place] [address] | + + + | Home Phone | | + + + | Preferred Language | Unknown | + + + | Marital Status | | + + + | Quaker Affiliation | CATRACHITO | + + + | Race | or | + + + | Ethnic Group | Not or | + + + Author + + + | Author | [facility] | + + + | Organization | [facility] | + + + | Address | Unknown | + + + | Phone | Unavailable | + + + Support + + +---------+ + | Name | Relationship | Address | Phone | + + +---------+ + | Isaias Salas | ECON | Unknown | | + + +---------+ + Care Team Providers + +------+ + | Care Spindle Carver Name | Role | Phone | + +------+ + | No Pcp Per Patient | PCP | Unavailable | + +------+ + Encounter Details +--------+ + + + + | Date | Type | Department | Care Team | Description | +--------+ + + + + | 11/17/ | Abstract | Dig[facility]ive Health | Clinic, Surgery | | | 2011 | | [facility] [address] | | | | | | [address] | | | | | | Mailcode: [place] | | | | | | for Health and | | | | | | Healing, Building [address] | | | | | | [place], [place] | | | | | | [address] | | | | | | [phone] | | | +--------+ + + + [...]
--- OUTSIDE RECORDS SUMMARY | ~2018-06-30 | XMS | Encounter Summary ---
Demographics + + + | Address | [address] | | | [place] [address] | + + + | Home Phone | | + + + | Preferred Language | Unknown | + + + | Marital Status | | + + + | Yarsanism Affiliation | CATRACHITO | + + + | Race | or | + + + | Ethnic Group | Not or | + + + Author + + + | Author | [facility] | + + + | Organization | [facility] | [...] Team Providers + +------+ + | Care Ecologist Name | Role | Phone | + +------+ + | Jairon Siegel | PCP | | + +------+ + Encounter Details +--------+ + + + + | Date | Type | Department | Care Team | Description | +--------+ + + + + | 11/23/ | Abstract | Digestive Health | Lucille De La Rosa, | | | 2011 | | [facility] [address] | [address] | | | | | [address] | [place], [place] | | | | | Mailcode: [place] | [address] | | | | | [facility] and | [phone] | | | | | [facility] 2 | | | | | | [place], [place] | | | | | | [address] | | | | | | [phone] | | | +--------+ + + + [...]
--- OUTSIDE RECORDS SUMMARY | ~2018-06-30 | XMS | Encounter Summary ---
Demographics + + + | Address | [address] | | | [place] [address] | + + + | Home Phone | | + + + | Preferred Language | Unknown | + + + | Marital Status | | + + + | Zoroastrian Affiliation | CATRACHITO | + + + | Race | or | + + + | Ethnic Group | Not or | + + + Author + + + | Author | [facility] | + + + | Organization | [facility] | + + + | Address | Unknown | + + + | Phone | Unavailable | + + + Support + + +---------+ + | Name | Relationship | Address | Phone | + + +---------+ + | Isaias Salas | ECON | Unknown | | + + +---------+ + Care Team Providers + +------+ + | Care Water Softener Service Supervisor Name | Role | Phone | + +------+ + | Jairon Siegel | PCP | | + +------+ + Encounter Details +--------+ + + + + | Date | Type | Department | Care Team | Description | +--------+ + + + + | 02/09/ | Abstract | Digestive Health | Lucille De La Rosa, | | | 2011 | | [facility] | [address] | | | | | [address] | [place], [place] | | | | | Mailcode: [place] | [address] | | | | | [facility] and | [phone] | | | | | [facility] 2 | | | | | | [place], [place] | | | | | | [address] | | | | | | [phone] | | | +--------+ + + + [...]
--- OUTSIDE RECORDS SUMMARY | ~2018-06-30 | XMS | Encounter Summary ---
Demographics + + + | Address | [address] | | | [place] [address] | + + + | Home Phone | | + + + | Preferred Language | Unknown | + + + | Marital Status | | + + + | Protestant Affiliation | CATRACHITO | + + + | Race | or | + + + | Ethnic Group | Not or | + + + Author + + + | Author | [facility] | + + + | Organization | [facility] | + + + | Address | Unknown | + + + | Phone | Unavailable | + + + Support + + +---------+ + | Name | Relationship | Address | Phone | + + +---------+ + | Isaias Ryan | ECON | Unknown | | + + +---------+ + Care Team Providers + +------+ + | Care Optical Dispenser Name | Role | Phone | + [...] | | Gastroenterol | Diagnoses | Smith Padilla, | Jenny Faculty | | | | ogy | Diarrhea | [address] | [address] | | | | | Bloody | [address] | [address] | | | | | diarrhea | [address] | Mailcode: | | | | | Abdominal | [place], [place] | Center for | | | | | pain | [address] | Health and | | | | | Procedures | Phone: | [place], | | | | | CONSULT TO | [phone] | Building [address] | | | | | GASTROENTERO | Fax: | [place], [place] | | | | | LOG[place] | [phone] | [address] | | | | | | | Phone: | | | | | | | [phone] | | | | | | | Fax: | | | | | | | [phone] | +--------+--------+ + + + + Reason [...] | | | | | | | [address] | | | | | | | Ave | | | | | | | Mailcode: | | | | | | | Center for | | | | | | | Health and | | | | | | | Healing, | | | | | | | Building 2 | | | | | | | [place], [place] | | | | | | | [address] | | | | | | | Phone: | | | | | | | [phone] | | | | | | | Fax: | | | | | | | [phone] | +--------+--------+ + + + + Encounter Details +--------+---------+ + + + | Date | Type | Department | Care Team | Description | +--------+---------+ + + + | 09/23/ | Office | Digestive Health | Lucille De La Rosa, | Diarrhea (Primary | | 2013 | Visit | [facility] [address] | MD [address] | Dx); Bloody | | | | [address] | [place], [place] | diarrhea; Abdominal | | | | Mailcode: [place] | [address] | pain | | | | for Health and | [phone] | | | | | [facility] 2 | | | | | | [place], [place] | | | | | | [address] | | | | | | [phone] | | | +--------+---------+ + + + [...] repair. HPI: Ms. Ryan was seen by [facility] ED in [facility], [place] 2 weeks ago for severe abdominal [...] Her last colonoscopy was in 2011 at [facility] with Dr. Patel for similar complaints of [...] possible colonoscopy. - Referral to GI at [facility] to discuss her functional abdominal pain and chronic diarrhea- 4-5 xs daily. - Recommend starting Metamucil supplementation for chronic diarrhea - Smoking cessation discussed Lucille De La Rosa MD, [employer] Pole Frame Construction Worker Division of General and Gastrointestinal Surgery Department of Surgery, [address] [facility] [place] [address] office clinic ndresAnastasia pendleton Raven - 05/2013 1:25 PM PDT [facility] NOTEAuthor: Anastasia Gutierrez MS4 Date: 09/23/2013 ID: Trudy Ryan is [...] antibiotics. HPI: Ms. Ryan was seen by [facility]' ED in [facility], [place] 2 weeks ago for severe abdominal [...] Her last colonoscopy was in 2011 at [facility] with [address]. Patel for similar complaints of [...] possible colonoscopy. - Referral to GI at [facility] - Metamucil supplementation for chronic diarrhea - Smoking cessation discussed This patient was seen with Dr. Lucille De La Rosa and Dr. Smith Padilla. Anastasia Gutierrez, MS4 [facility] Department of Surgery documented in this encount [...] | Procedure Note | + + | Other, Faculty - 11/23/2013 1:24 PM PDT | + + documented in this encounter Visit Diagnoses + + | Diagnosis | + + | Diarrhea - Primary | + + | Bloody diarrhea Diarrhea | + + | Abdominal pain | + + documented in this encounter
--- OUTSIDE RECORDS SUMMARY | ~2018-06-30 | XMS | Encounter Summary ---
Demographics + + + | Address | [address] | | | [place] [address] | + + + | Home Phone | | + + + | Preferred Language | Unknown | + + + | Marital Status | | + + + | Druze Affiliation | CATRACHITO | + + + | Race | or | + + + | Ethnic Group | Not or | + + + Author + + + | Author | [facility] | + + + | Organization | [facility] | + + + | Address | Unknown | + + + | Phone | Unavailable | + + + Support + + +---------+ + | Name | Relationship | Address | Phone | + + +---------+ + | Isaias Salas | ECON | Unknown | | + + +---------+ + Care Team Providers + +------+ + | Care Sales Support Coordinator Name | Role | Phone | + +------+ + | Jairon Siegel | PCP | | + +------+ + Reason for Visit + + + | Reason | Comments | + + + | Referral to social | | | worker | | + + + Encounter Details +--------+ + + + + | Date | Type | Department | Care Team | Description | +--------+ + + + + | 12/07/ | Telephone | SOCIAL WORK | [facility] | Referral to social | | 2011 | | AMBULATORY [address] | [address] | worker | | | | [address] | [address] [place], | | | | | Road Mailcode: CH[address]A | [place] [address] | | | | | [place], [place] | | | | | | [address] | | | | | | [phone] | | | +--------+ + + + [...]
--- OUTSIDE RECORDS SUMMARY | ~2018-06-30 | XMS | Encounter Summary ---
Demographics + + + | Address | [address] | | | [place] [address] | + + + | Home Phone [...] + + | Author | [facility] | + + + | Organization | [facility] | + + + | Address | Unknown | + + + | Phone | Unavailable | + + + Support + + +---------+ + | Name | Relationship | Address | Phone | + + +---------+ + | Isaias Salas | ECON | Unknown | | + + +---------+ + Care Team Providers + +------+ + | Care Architectural Coating Finisher Name | Role | Phone | + [...] | | 2013 | | Center at [facility] | [address] | Review (CT abdomen/ | | | | [address] | [place], [place] | pelvis 08/16/13 and | | | | Mailcode: Center | [address] | 12/13/12) | | | | for Health and | [phone] | | | | | [place] [address] | | | | | | [place], [place] | | | | | | [address] | | | | | | [phone] | | | +--------+ + + + [...] - 09/24/2013 3:34 PM PDTImages viewable in Amicrobe. documented in this encounter Plan of Treatment Not on filedocumented as of this encounter Visit Diagnoses Not on filedocumented in this encounter"
--- OUTSIDE RECORDS SUMMARY | ~2018-06-30 | XMS | Encounter Summary ---
Demographics + + + | Address | [address] | | | [place] [address] | + + + | Home Phone [...] + + + | Author | [facility] | + + + | Organization | [facility] | + + + | Address | Unknown | + + + | Phone | Unavailable | + + + Support + + +---------+ + | Name | Relationship | Address | Phone | + + +---------+ + | Isaias Salas | ECON | Unknown | | + + +---------+ + Care Team Providers + +------+ + | Care Cement Tester Assistant Name | Role | Phone | + [...] | [address] | [address] | | | | | incisional | [place] | [place] | | | | | hernia | [address] | [facility] [place] | | | | | Procedures | [address] | [address] | | | | | REQUEST TO | Gomez | Phone: | | | | | SURGERY | [address] | [phone] | | | | | CATERING SERVICE MANAGER | [place], [place] | Fax: | | | | | AL REPAIR | [address] | [phone] | | | | | RECURR INCIS | | | | | | | | | | | | | | HERNIA,REDUC | | | | | | | AL REPAIR | | | | | | | INCIS HERNIA | | | | | | | [address] | | | | | | | [...] | hernia | [address] | [address] | | | | | without | SURGICAL | Ave | | | | | mention of | CLINIC [address] | [place], [place] | | | | | obstruction | [address] | [address] | | | | | or gangrene | AVE | Phone: | | | | | Procedures | [place], | [phone] | | | | | CONSULT TO | [place] [address] | Fax: | | | | | GENERAL | Phone: | [phone] | | | | | SURGERY | [phone] | | | | | | | Fax: | | | | | | | [phone] | | +--------+ + + + + + Encounter Details +--------+---------+ + + + | Date | Type | Department | Care Team | Description | +--------+---------+ + + + | 12/06/ | Office | Digestive Health | Lucille De La Rosa, | Incisional hernia | | 2011 | Visit | [facility] [address] | MD [address] | (Primary Dx) | | | | [address] | [place], [place] | | | | | Mailcode: [place] | [address] | | | | | for Health and | [phone] | | | | | [facility] 2 | | | | | | [place], [place] | | | | | | [address] | | | | | | [phone] | | | +--------+---------+ + + + [...] Garcia RN - 12/07/2011 10:56 AM PDTEPICSPINPTPREOPINSTRUCTIONSP [facility] General Surgery Office Toll-free: ext [phone] Surgery Date: December 29, 2011 Procedure: Open [...] the surgery. Please see the list below, [facility] has a list of products that [...] please call the General Surgery Office at [phone] for [id number]. PARKING Parking for patients and visitors is available in the [facility] Parking structure located across from the emergency department. Patient parking is available on level 1 and 3. Mete red parking is available on the top level. CHECKING IN FOR SURGERY For Hospital Admission (in-patient) you will check in on the day of surgery at [facility] located on the 9th floor of [facility] TRANSPORTATION You will require transportation home on the day of discharge. Pain medications and physica l activity restrictions may limit your ability to drive safely. CANCELLING YOUR PROCEDURE Please notify the general surgery office at [phone] as soon as possible should you nee [...] prior to your surgery. PRODUCTS CONTAINING ASPIRIN Bozena-Rome, Anacin, Anexsia with Codeine, Andynos, Aspirin, Aspirin suppositories, Ascrip tin, Aspergum, Axotal, B-A-C, Baby Aspirin, Piotr, BC Powder, Bexophene, Buffaprin, Bufferin , Buffinol, Cama-Arthritis Strength, Congespirin, Jackson, Coricidin, Damason, Darvon, Dristan, Isadora-Gesic, Digel, Dolprin #3 Tablets, Donatab, Doxaphene, Duragesic, Easprin, Ecotrin, Emag rin Forte, Emiprin, Emprazil, Equagesic, Equazine M, Excedrin, Fiogesic, Fiorgen PH, Fiorice t, Fiorinal, 4-Way Cold Tablet Gemnisyn, Indocin, Liquprin, Lortab ASA, Magnaprin, Marnal, Meprobamate, Midol, Momentum, N orgesic, [place], Orphengesic, Pabalate, P-A-C, Percodan, Presalin, Robaxasil, Roxiprin, Trey eto, Salocol SK-65 Compound, Sine-Aid, Sine-Off,, St. [place], Supac, Talwin Compound, Trigesic, Tolectin , Traiminicin, Vanquish, ZORprin, Zomax PRODUCTS CONTAINING IBUPROFEN Advil, Aleve, Haltran, Medipren, Midol, Motrin, Naproxyn, Nuprin, Rufen OTHER PRODUCTS WHICH MAY PROMOTE BLEEDING Vitamin E, Gingko Biloba, Marine Fatty Acids, [place]-3 Fish Oil Supplements documented in this encounter Progress Notes Lucille De La Rosa MD - 12/08/2011 1:05 PM PDTI saw and evaluated the patient. I agree with the findings and the plan of care as documented in the resident s note. MD LUCILLE Dumont MD [facility] [address] Mailcode: [place] [address] Jona Davis MD - 12/07/2011 10:56 AM PDT GENERAL SURGERY HISTORY AND PHYSICALAttending Physician: Lucille De La Rosa MD Author: [...] stairs without difficulty. [facility] for possible component separation and repair [...] Reactions Ibuprofen Penicillin G Robaxin (Methocarbamol) SOCIAL HISTORY:History Social History Marital Status: Spouse Name: N/A [...] plan. Jona Conley MD MIS/Bariatric Fellow, Pager [phone] [facility] Attending provider: Lucille De La Rosa MD [...]
--- OUTSIDE RECORDS SUMMARY | ~2018-06-30 | XMS | Encounter Summary ---
Demographics + + + | Address | [address] | | | [place] [address] | + + + | Home Phone | | + + + | Preferred Language | Unknown | + + + | Marital Status | | + + + | Sikh Affiliation | CATRACHITO | + + + | Race | or | + + + | Ethnic Group | Not or | + + + Author + + + | Author | [facility] | + + + | Organization | [facility] [...] Team Providers + +------+ + | Care E Commerce Manager Name | Role | Phone | [...] [address] | | | | | | [facility] | | | | | | Mailcode: PV35 | | | | | | Physicians Zack | | | | | | [place], [place] | | | | | | [address] | | | | | | [phone] | | | +--------+ + + + [...]
--- OUTSIDE RECORDS SUMMARY | ~2018-06-30 | XMS | Encounter Summary ---
Demographics + + + | Address | [address] | | | [place] [address] | + + + | Home Phone | | + + + | Preferred Language | Unknown | + + + | Marital Status | | + + + | Baptism Affiliation | CATRACHITO | + + + | Race | or | + + + | Ethnic Group | Not or | + + + Author + + + | Author | [facility] | + + + | Organization | [facility] | [...] Team Providers + +------+ + | Care Receiving Lead Name | Role | Phone | + [...] [address] | | | | | | [facility] | | | | | | Mailcode: PV35 | | | | | | Physicians Zack | | | | | | [place], [place] | | | | | | [address] | | | | | | [phone] | | | +--------+ + + + [...]
--- OUTSIDE RECORDS SUMMARY | ~2018-06-30 | XMS | Clinical Summary ---
Demographics + + + | Address | [address] | | | [place] [address] | + + + | Home Phone | | + + + | Preferred Language | Unknown | + + + | Marital Status | Unknown | + + + | Jehovah'S Witness Affiliation | Unknown | + + + | Race | Unknown | + + + | Ethnic Group | Unknown | + + + Author + + + | Author | [facility] | | | and [place] | + + + | Organization | [facility] | | | and [place] | + + + | Address | Unknown | + + + | Phone | Unavailable | + + + Care Team Providers + +------+ + | Care Monitor And Storage Bin Tender Name | Role | Phone | + +------+ + PP | Unavailable | + +------+ + Allergies Not on File Medications Not on file Active Problems Not on file Social History + +-------+ +--------+------+ | Tobacco [...] recent travel history available. | + + Plan of Treatment + + + + + | Health Maintenance | Due Date | Last Done | Comments | + + + + + | Vaccine: | | | | | Dtap/Tdap/Td (1 - | 8 | | | | Tdap) | | | | + + + + + | Vaccine: Zoster (1 | | | | | of 2) | 9 | | | + + + + + | Vaccine: | | | | | Pneumococcal 65+ | 4 | | | | Low/Medium Risk (1 | | | | | of 2 - PCV13) | | | | + + + + + | Vaccine: Influenza | | | | | (Season Ended) | 9 | | | + + + + + Results Not on filefrom Last 3 Months"
--- OUTSIDE RECORDS SUMMARY | ~2018-06-30 | XMS | Clinical Summary ---
Demographics + + + | Address | [address] | | | [place] [address] | + + + | Home Phone | | + + + | Preferred Language | Unknown | + + + | Marital Status | Unknown | + + + | Anabaptist Affiliation | Unknown | + + + | Race | Unknown | + + + | Ethnic Group | Unknown | + + + Author + + + | Author | [facility] | | | and Emir | + + + | Organization | [facility] | | | and [place] | + + + | Address | Unknown | + + + | Phone | Unavailable | + + + Care Team Providers + +------+ + | Care Group Director Experience Name | Role | Phone | + [...]
--- OUTSIDE RECORDS SUMMARY | ~2018-06-30 | XMS | Encounter Summary ---
Demographics + + + | Address | [address] | | | [place] [address] | + + + | Home Phone [...] Author | [facility] | + + + | Organization | [facility] | + + + | Address | Unknown | + + + | Phone | Unavailable | + + + Support + + +---------+ + | Name | Relationship | Address | Phone | + + +---------+ + | Isaias Salas | ECON | Unknown | | + + +---------+ + Care Team Providers + +------+ + | Care Tooling Mechanic Name | Role | Phone | + [...] | | 2013 | | Center at [facility] [address] | MD [address] | Review | | | | [address] | [place], [place] | | | | | Mailcode: Center | [address] | | | | | for Health and | [phone] | | | | | [facility], [facility] 2 | | | | | | [place], [place] | | | | | | [address] | | | | | | [phone] | | | +--------+ + + + [...]
--- OUTSIDE RECORDS SUMMARY | ~2018-06-30 | XMS | Encounter Summary ---
Demographics + + + | Address | [address] | | | [place] [address] | + + + | Home Phone | | + + + | Preferred Language | Unknown | + + + | Marital Status | | + + + | Catholic Affiliation | CATRACHITO | + + + | Race | or | + + + | Ethnic Group | Not or | + + + Author + + + | Author | [facility] | + + + | Organization | [facility] | + + + | Address | Unknown | + + + | Phone | Unavailable | + + + Support + + +---------+ + | Name | Relationship | Address | Phone | + + +---------+ + | Isaias Salas | ECON | Unknown | | + + +---------+ + Care Team Providers + +------+ + | Care Riprap Placer Name | Role | Phone | + +------+ + | Lizzette Mcknight MD | PCP | | + +------+ + Reason for Visit + + + | Reason | Comments | + + + | Arthralgia | | + + + Encounter Details +--------+---------+ + + + | Date | Type | Department | Care Team | Description | +--------+---------+ + + + | 07/15/ | Office | Rheumatology at | Guprreet Contreras, | Arthralgia (Primary | | 2010 | Visit | [place] | | Dx) | | | | [address] | | | | | | [facility] | | | | | | Mailcode: [id number] | | | | | | Isreal [place] | | | | | | [place], [place] | | | | | | [address] | | | | | | [phone] | | | +--------+---------+ + + + [...] + + + | Blood Pressure | 104/64 | 07/15/2010 10:42 AM | | | | | PDT | | + + + + + | Pulse | 80 | 07/15/2010 10:42 AM | | | | | PDT | | + + + + + | Temperature | - | - | | + + + + + | Respiratory Rate | - | - | | + + + + + | Oxygen Saturation | - | - | | + + + + + | Inhaled Oxygen | - | - | | | Concentration | | | | + + + + + | Weight | 87.1 kg (192 lb) | 07/15/2010 10:42 AM | | | | | PDT | | + + + + + | Height | 163.8 cm (5' 4.5") | 07/15/2010 10:42 AM | | | | | PDT | | + + + + + | Body Mass Index | 32.45 | 07/15/2010 10:42 AM | | | | | PDT | | + + + + + documented in this encounter Patient Instructions Patient Instructions Gurpreet Contreras MD - 07/15/2010 11:36 AM PDTMs Salas- Please proceed to X-ray (4th floor) and to the lab (3rd floor). Please update your primary care doctor's information with Jackie here at the front office assistant. Anahy Contreras MD documented in this encounter Progress Notes Violette Murphy MD - 07/18/2010 8:27 AM PDTI have repeated hudson portions of the history and physical exam with Dr Contreras, rheumatology fellow and was directly involved in the manag ement of the care of the patient. Please refer to Dr Contreras's note for details of the histor y, exam and plan of care. VIOLETTE MURPHY MD Rheumatology Faculty [address] [place] [address] [place] [address] Gurpreet Armenta MD - 07/14/2010 2:28 PM PDT Progress Note Clinic: Rheumatology Reason for follow-up: arthralgias Background: Today she reports: Not feeling well, back and shoulder pain, neck pain. Stiff in the morning for 15-20 minutes, sometimes an hour, gets achy but not stiff later in the day. No red/warm/swollen joints. R knee is painful much of the time, had R knee TKA July 2008. Never underwent phys tx henry sagastume was hospitalized with diverticulitis soon after her TKA. Her knee pain never really impro omer. Methotrexate since 1997- stopped a few months ago. Not sure if she feels worse off of it. Not sure that it helped her. Was on enbrel for "not very long"- 2 months. With methotrexate. Not clear if helped her. She reports that she was told in the past that she had "rheumatoid arthritis in my spine." does not recall hearing that she had sacroiliitis nor degenerative/osteoarthritis in her spi ne. Not taking any methotrexate currently. 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 No problem wit h cold weather. Feeling skin tightness in her hands when they are swollen and has noticed that they are [place] at times. No dysphagia. Menopausal x12 years. Tries to take calcium and vit D but forgets sometimes. ROS: Over the last year she has experienced: Weight gain, weight loss, night sweats, headaches, unusual fatigue, loss of appetite, sun-i nduced rash, loss of hair, problems with hearing, stuffy nose, lump in throat, cough, stomac h pain, nausea, vomiting, diarrhea, loss of balance, muscle pain, muscle weakness, swelling of hands/ankles/other joints, joint/back/neck pain, smoking cigarettes, depression, anxiety, problems with sleeping/memory, hand color changes in cold weather. Remainder of full ROS negative. Past Medical History: Past Medical History Diagnosis Date Diverticulitis s/p surgery Rheumatoid arthritis Medications: Current outpatient prescriptions Medication Sig hydrocodone-acetaminophen (VICODIN) 5-500 mg Oral Tablet Take 1 Tab by mouth four times daily. Not to exceed 8 tablets per any 24 hour period. (Not to exceed 4000 mg of acetaminop hen from all products per 24 hour period.) Allergies: Robaxin, Penicillin g and Ibuprofen Social History: Trudy reports that she has been smoking. She does not have any smokeles s tobacco history on file. She reports that she does not currently drink alcohol or use ill icit drugs. Physical Exam BP 104/64 | Pulse 80 | Ht 1.638 m (5' 4.5") | Wt 87.091 kg (192 lb) | BMI 32.45 kg/(m^2) Pa in Score: Rapid 3 Gen: Alert, in NAD HEENT: PERRL, teeth in poor repair. Neck: no lymphadenopathy, FROM Lungs: clear to ausculations bilaterally CVS: S1, S2 RRR, no murmurs, rubs or gallops Abd: normal BS, soft, NT, ND M/S: notable for Left>Right wrist swelling, mildly tender and with mildly limited flexion/e xtension. Bilateral hand/wrist edema L>R, mild shininess of skin. The skin is not tight/thickened. No synovitis of fingers noted. Mild effusions of bilateral knees. R knee surgical scar. No warmth/edema/joint line tendern ess. Spine is straight and she is able to flex to touch her toes. Skin: as noted above. No telangiectasis or other lesions noted. Labs: 04/29 ordered: Rf CCP ESR CRP HepBSAg HepCAb Sander TSH 25(OH)D 04/29 synovial fluid: 236 WBCs, 9% Ne, 25% L, 66% M; no crystals 11/29 outside labs: Na 139, K 2.6, Cl 103, CO2 30, BUN 7, Cr 0.77, glucose 131, AST 20, ALT 20, alk phos 57, TB ismael 0.8, Ca 7.3, albumin 3.0, TP 6.5, Mag 1.2 WBC 6.8, Hct 32.3, Plt 159 Ne 76.6%, L 13.2%, M 8.1%, E 0.1%, B 0.0% Radiology: none Impression: This is a 60 y.o. female here for follow up of arthralgias. 1. Arthralgias- diagnosis unclear. Reports that she carries dx of rheumatoid arthritis, tho [facility] currently without evidence of active synovitis and lacking supportive lab/imaging data. Some shininess of L>R hand, considered possibility of scleroderma, though hx of Raynaud's is equivocal and doesn't have other supportive features. No tightness to suggest entity like e osinophilic fasciitis. Reports that she has a hx of being told that she has arthritis in her spine, wonder re possibility of spondyloarthropathy. Does not have hx suggestive of psorias is, IBD, reactive arthritis. Degenerative arthritis also potential contributor. Vit D insuff iciency, hypothyroidism, viral hepatitis also potential contributors. -Hold off on methotrexate while working on clarifying diagnosis. -Obtain: CBC with diff, CMP, ESR, CRP, Rf, CCP, SANDER, FELIPE, HepBSAg, HepCAb, 25(OH)D, TSH; bi lateral hand and foot x-rays, lumbar spine and pelvic (Gutierrez view) x-rays. 2. Follow-up- will depend on results of above. In today s clinic, I reviewed the patient's follow-up visit questionnaire, past medical h istory, a 10 systems review, side-effect profile of medications etc. I spent 30 minutes wit h the patient in a [id number] meeting and >50% time was spent in medically indicated couns eling, and education. I have also answered all the questions raised. The history, findings and treatment plan that I have documented were reviewed with the [facility] physician at the time of this encounter. Dr. Murphy agrees that my assessment plan and ser vices provided are appropriate. GURPREET CONTRERAS MD RHEUMATOLOGY [facility] [address] [place] [address] Mailcode: [id number] [place] [address] documented in this en counter Plan of Treatment Not on filedocumented as of this encounter Procedures + +--------+ + + + | Procedure Name | Priori | Date/Time | Associated Diagnosis | Comments | | | ty | | | | + +--------+ + + + | RADIOLOGY | | 07/28/2010 | | Results for this | | | | 12:00 AM | | procedure are in the | | | | PDT | | results section. | + +--------+ + + + | LAB REPORTS | | 07/26/2010 | | Results for this | | | | 12:00 AM | | procedure are in the | | | | PDT | | results section. | + +--------+ + + + | LAB REPORTS | | 07/15/2010 | | Results for this | | | | 12:00 AM | | procedure are in the | | | | PDT | | results section. | + +--------+ + + + | LAB REPORTS | | 07/15/2010 | | Results for this | | | | 12:00 AM | | procedure are in the | | | | PDT | | results section. | + +--------+ + + + | RADIOLOGY | | 07/15/2010 | | Results for this | | | | 12:00 AM | | procedure are in the | | | | PDT | | results section. | + +--------+ + + + documented in this encounter Results RADIOLOGY (07/28/2010 12:00 AM PDT) + + + | Narrative | Performed At | + + + | | | + + + + + | Procedure Note | + + | Other, Faculty - 07/28/2010 12:00 AM PDT | | | + + LAB REPORTS (07/26/2010 12:00 AM PDT) + + + | Narrative | Performed At | + + + | | | + + + + + | Procedure Note | + + | Other, Faculty - 07/26/2010 12:00 AM PDT | | | + + LAB REPORTS (07/15/2010 12:00 AM PDT) + + + | Narrative | Performed At | + + + | | | + + + + + | Transcriptions | + + | Fanny Pelletier - 12/24/2010 2:58 PM PDT | + + LAB REPORTS (07/15/2010 12:00 AM PDT) + + + | Narrative | Performed At | + + + | | | + + + + + | Transcriptions | + + | Prabhu Faculty - 12/24/2010 2:58 PM PDT | + + RADIOLOGY (07/15/2010 12:00 AM PDT) + + + | Narrative | Performed At | + + + | | | + + + + + | Procedure Note | + + | Fanny Pelletier - 07/15/2010 12:00 AM PDT | | | + + documented in this encounter Visit Diagnoses + + | Diagnosis | + + | Arthralgia - Primary Pain in joint, site unspecified | + + documented in this encounter
--- OUTSIDE RECORDS SUMMARY | ~2018-06-30 | XMS | Encounter Summary ---
Demographics + + + | Address | [address] | | | [place] [address] | + + + | Home Phone | | + + + | Preferred Language | Unknown | + + + | Marital Status | | + + + | Evangelical Affiliation | CATRACHITO | + + + | Race | or | + + + | Ethnic Group | Not or | + + + Author + + + | Author | [facility] | + + + | Organization | [facility] | + + + | Address | Unknown | + + + | Phone | Unavailable | + + + Support + + +---------+ + | Name | Relationship | Address | Phone | + + +---------+ + | Isaias Salas | ECON | Unknown | | + + +---------+ + Care Team Providers + +------+ + | Care Voyage Management System Operator Name | Role | Phone | [...] | | Center at [address] | [address] | | | | | [address] | [place], [place] | | | | | Mailcode: [place] | [address] | | | | | [facility] and | [phone] | | | | | [facility] [address] | | | | | | [place], [place] | | | | | | [address] | | | | | | [phone] | | | +--------+ + + + [...]
--- OUTSIDE RECORDS SUMMARY | ~2018-06-30 | XMS | Encounter Summary ---
Demographics + + + | Address | [address] | | | [place] [address] | + + + | Home Phone [...] Author | [facility] | + + + | Organization | [facility] | [...] Team Providers + +------+ + | Care Client Professional Name | Role | Phone | + [...] | | 2013 | | Center at [facility] [address] | MD [address] | | | | [address] | [place], [place] | | | | | Mailcode: [place] | [address] | | | | | for Health and | [phone] | | | | | [facility] [address] | | | | | | [place], [place] | | | | | | [address] | | | | | | [phone] | | | +--------+ + + + [...]
--- OUTSIDE RECORDS SUMMARY | ~2018-06-30 | XMS | Encounter Summary ---
Demographics + + + | Address | [address] | | | [place] [address] | + + + | Home Phone | | + + + | Preferred Language | Unknown | + + + | Marital Status | | + + + | Jainism Affiliation | CATRACHITO | + + + | Race | or | + + + | Ethnic Group | Not or | + + + Author + + + | Author | [facility] | + + + | Organization | [facility] | + + + | Address | Unknown | + + + | Phone | Unavailable | + + + Support + + +---------+ + | Name | Relationship | Address | Phone | + + +---------+ + | Isaias Salas | ECON | Unknown | | + + +---------+ + Care Team Providers + +------+ + | Care Business Leader Name | Role | Phone | + [...] | | Center at [facility] [address] | [address] | | | | | [address] | [place], [place] | | | | | Mailcode: [place] | [address] | | | | | [facility] and | [phone] | | | | | [facility] [address] | | | | | | [place], [place] | | | | | | [address] | | | | | | [phone] | | | +--------+ + + + [...]
--- OUTSIDE RECORDS SUMMARY | ~2018-06-30 | XMS | Encounter Summary ---
Demographics + + + | Address | [address] | | | [place] [address] | + + + | Home Phone | | + + + | Preferred Language | Unknown | + + + | Marital Status | | + + + | Orthodoxy Affiliation | CATRACHITO | + + + | Race | or | + + + | Ethnic Group | Not or | + + + Author + + + | Author | [facility] | + + + | Organization | [facility] | + [...] Team Providers + +------+ + | Care Verification Engineer Name | Role | Phone | + [...] | (Primary Dx) | | | | [facility] | | | | | | Mailcode: [id number] | | | | | | [place] | | | | | | [place], [place] | | | | | | [address] | | | | | | [phone] | | | +--------+---------+ + + + [...]
--- OUTSIDE RECORDS SUMMARY | ~2018-06-30 | XMS | Encounter Summary ---
Demographics + + + | Address | [address] | | | [place] [address] | + + + | Home Phone | | + + + | Preferred Language | Unknown | + + + | Marital Status | | + + + | Synagogue Affiliation | CATRACHITO | + + + | Race | or | + + + | Ethnic Group | Not or | + + + Author + + + | Author | [facility] | + + + | Organization | [facility] | + + + | Address | Unknown | + + + | Phone | Unavailable | + + + Support + + +---------+ + | Name | Relationship | Address | Phone | + + +---------+ + | Isaias Salas | ECON | Unknown | | + + +---------+ + Care Team Providers + +------+ + | Care Roll Filler Name | Role | Phone | + +------+ + | Sulaiman Henderson MD | PCP | | + +------+ + Reason for Visit + + + | Reason | Comments | + + + | New patient | | | consultation | | + + + Encounter Details +--------+---------+ + + + | Date | Type | Department | Care Team | Description | +--------+---------+ + + + | 04/20/ | Office | Rheumatology at | Lorena Valerio, | Arthralgia (Primary | | 2009 | Visit | Physicians Zack | | Dx) | | | | [address] | | | | | | [facility] | | | | | | Mailcode: [id number] | | | | | | Isreal Dixon | | | | | | [place], [place] | | | | | | [address] | | | | | | [phone] | | | +--------+---------+ + + + [...] + + + | Blood Pressure | 98/62 | 04/20/2009 9:53 AM | | | | | PST | | + + + + + | Pulse | 66 | 04/20/2009 9:53 AM | | | | | PST | | + + + + + | Temperature | - | - | | + + + + + | Respiratory Rate | - | - | | + + + + + | Oxygen Saturation | 97% | 04/20/2009 9:53 AM | | | | | PST | | + + + + + | Inhaled Oxygen | - | - | | | Concentration | | | | + + + + + | Weight | 82.1 kg (181 lb) | 04/20/2009 9:53 AM | | | | | PST | | + + + + + | Height | - | - | | + + + + + | Body Mass Index | - | - | | + + + + + documented in this encounter Progress Notes Dm Haley MD - 04/22/2009 1:31 PM PSTI saw and evaluated the patient. I agree with the findings and the plan of care as documented in the resident s note. DM HALEY MD (ATUL) RHEUMATOLOGY FACULTY [address] [place] [address] [id number] Lorena Nieto MD - 04/20/2009 10:41 AM PST RHEUMATOLOGY NEW PATIENT CONSULT This consultation was requested by: [facility] [address] [place] [address] fax: [phone] CC: Chief Complaint Patient presents with New patient consultation HPI: This is a 59 y.o. female, here for consultation from Lyle Myers MD regarding diagnosis of Rheumatoid Arthritis. Was diagnosed with RA in 1997 by Advertising Project Manager. Was treated with methotrexate up to 7 tabs and told to decrease to 6 tabs due to bloodtests. Has had pain in hands, knees, feet. Was n ever on sulfasalazine or hydroxychloroquine. Patient was more recently seen by Dr Henderson in [facility]. At one point was diagnosed with Fibromyalgia. Was on Enbrel in 2007 and she tells me she did not notice change but was told to keep taking it. Still had swelling during year she was on it. Had problems with insurance and so no longer taking it for over a year. Curr ently taking celebrex. In anticipation of visit to [facility] clinic in [place] star brennen methotrexate 6 tabs in 03/01 and she took until last week when she ran out. Also given st eroid shot in 03/01 and that helped her pain. Today have back and neck pain, ankles. Tells me she had pain in hands before but now feelin g good and swelling decreased. Hands are stiff in morning, lasts minutes. Was lasting longer in 03/01 before steroid shot and methotrexate reinitiated, but she does not feel that methot rexate has affected her sx since her sx always come and go. Was getting flares that lasted 5 days ever 2-3 weeks. Had Right TKR in August. Knee is painful, swollen. Has not seen ortho s kiley. Outside rheumatology notes do not note synovitis (only [employer]CHIT[employer] note). Reports she had bloodclot in her head in that was under the skin, not in her brain. H as 4 children, no miscarriages. No Raynauds sx. No dry eyes or mouth. ROS: General: No constitutional symptoms of fatigue, weakness, fevers, night sweats. Eyes: No changes in visual acuity, diplopia or amaurosis, no discharge, matting, redness, tearing or eye pain. Ears/Nose/Throat: No sore throat, dental pain, hoarseness, dysphagia, oral or tongue lesio ns. No history of hearing loss, ear pain, tinnitus or aural discharge. CVS: No chest pain, leg swelling, or palpitations. Respiratory: No shortness of breath, cough, or pain with breathing. Gastrointestinal: No abdominal or flank pain, anorexia, nausea or vomiting, dysphagia, dianna nge in bowel habits or black or bloody stools or weight loss. Musculoskeletal: As per HPI Neurologic: No symptoms of neurological impairment or TIAs; no amaurosis, diplopia, dysphas ia, or unilateral disturbance of motor or sensory function. No loss of balance or vertigo. Heme/Lymphatic: No abnormal bruising, abnormal bleeding or enlarged lymph nodes. Skin: No rash. PMH: Past Medical History Diagnosis Date Diverticulitis s/p surgery Rheumatoid arthritis PSH: Past Surgical History Procedure Date Pr removal gallbladder Pr total knee arthroplasty Right knee, 08/28 Meds: Current outpatient prescriptions Medication Sig CELECOXIB (CELEBREX ORAL) Take 2 Tabs by mouth once daily. hydrocodone-acetaminophen (VICODIN) 5-500 mg Oral Tablet Take 1 Tab by mouth four times daily. Not to exceed 8 tablets per any 24 hour period. (Not to exceed 4000 mg of acetaminop hen from all products per 24 hour period.) methotrexate 2.5 mg Oral Tablet Take 6 Tabs by mouth every seven days. Allergies: Robaxin, Penicillin g and Ibuprofen Social History: Trudy smokes a few puff of tobacco now and then No etoh Vaccinations: There is no immunization history on file for this patient. FH: grandmother had RA Rapid 3 MHAQ: 2.3 (04/20/09 10:00 AM) PAIN LEVEL: 8.5 (04/20/09 10:00 AM) GLOBAL ASSESSMENT: 7.5 (04/20/09 10:00 AM) RAPID 3: 6.1 (04/20/09 10:00 AM) Exam: Vital Signs: BP 98/62 | Pulse 66 | Wt 82.101 kg (181 lb) | SpO2 97% Pain Score: 9 Gen: Well nourished, well developed, in NAD HEENT: PERRLA, EOMI, O/P clear, no facial rash or alopecia Neck: supple, no lymphadenopathy, FROM Lungs: clear to ausculation bilaterally CVS: S1S2, RRR, no murmurs, rubs or gallops Abd: normal BS, soft, NT, ND Ext: no clubbing, cyanosis or edema M/S: Other than Right knee, no synovitis but ttp in wrists b/l, 4 MCPs and 4PIPs Right knee s/p replacement warm, swollen, tender, flexes past 90 degrees 11 tender fibromyalgia points Skin: no abnormalities Neuro: CN intact, sensory exam intact, strength full, reflexes normal and symmetric Impression: This is a 59 y.o. Female with hx of Fibromyalgia, here for evaluation of Rheuma toid Arthritis dx in 1997, presented to [facility] in 2009. She has been on methotrexate 15mg week ly and synovitis mostly controlled today but still with Right knee (s/p replacement) warm. L ooked at with ortho and not suspicious for infection (without large effusion and able to fle x past 90 degrees). She has been on Enbrel in the past, stopped for coverage reasons. Never on hydroxychloroquine or sulfasalazine.I reviewed the patient s questionnaire which includ ed more than 10 review of systems, answered all questions raised, and provided counseling an d education. Recommendations: -Checking RF, CCP, ESR,CRP,Hep B and C, SANDER,TSH, Vit D -continue methotrexate 15mg (6 tabs) weekly and may increase to 8 tabs if labs ok -take folic acid daily while on methotrexate -will need toxicity labs every 8 weeks while taking methotrexate -Encouraged ortho followup for Right TKA RTC in 3 months The history, findings and treatment plan that I have documented were reviewed with the jesi uriarte physician at the time of this visit. He agrees that my assessment plan and services provid ed are appropriate. LORENA VALERIO MD RHEUMATOLOGY FELLOWS [address] [facility] Mailcode: [id number] [facility] [place] [facility] [place] [address] documented in this e ncounter Plan of Treatment Not on filedocumented as of this encounter Procedures + +--------+ + + + | Procedure Name | Priori | Date/Time | Associated Diagnosis | Comments | | | ty | | | | + +--------+ + + + | CULTURE, JOINT FLUID | Routin | 04/20/2009 | Arthralgia | Results for this | | (SYNOVIAL) | e | 1:05 PM | | procedure are in the | | | | PST | | results section. | + +--------+ + + + | BODY FLUID INFO | Routin | 04/20/2009 | | Results for this | | PANEL | e | 12:03 PM | | procedure are in the | | | | PST | | results section. | + +--------+ + + + | CELL COUNT ONLY, | Routin | 04/20/2009 | Arthralgia | Results for this | | BODY FLUID | e | 12:03 PM | | procedure are in the | | | | PST | | results section. | + +--------+ + + + | SYNOVIAL FLUID | Routin | 04/20/2009 | Arthralgia | Results for this | | EXAMINATION | e | 11:44 AM | | procedure are in the | | | | PST | | results section. | + +--------+ + + + documented in this encounter Results CULTURE, JOINT FLUID (SYNOVIAL) (04/20/2009 1:05 PM PST) + + + + + + | Component | Value | Ref Range | Performed | Pathologist | | | | | At | Signature | + + + + + + | SOURCE BODY | Synovial fluid Right | | [facility] | | | SITE | Knee | | [facility] | | | | | | LAB-MICRO | | + + + + + + | CULTURE | Joint Fluid | | [facility] | | | RESULT | Culture | | [facility] | | | | Source...............: | | LAB-MICRO | | | | Synovial fluid Right | | | | | | Knee RLB Gram | | | | | | Stain...........: No | | | | | | Squamous epithelial | | | | | | cells | | | | | | | | | | | | | | | | | | No PMN's | | | | | | | | | | | | | | | | | | No organisms | | | | | | seen. Culture: | | | | | | Final Report: No | | | | | | growth after 3 days. | | | | | | No anaerobes | | | | | | isolated Final | | | | | | Report | | | | + + + + + + + + | Specimen | + + | Synovial fluid | + + + + + + + | Performing | Address | City/State/Zipcode | Phone Number | | Organization | | | | + + + + + | [facility] | [address] | [place] [address] | | | LAB-MICRO | | | | + + + + + BODY FLUID INFO PANEL (04/20/2009 12:03 PM PST) + + + + + + | Component | Value | Ref Range | Performed | Pathologist | | | | | At | Signature | + + + + + + | TYPE OF | Right knee. | | [facility] | | | FLUID | | | DEPARTMENT | | | | | | OF | | | | | | PATHOLOGY | | + + + + + + + + | Specimen | + + | | + + + + + | Narrative | Performed At | + + + | Duplicate order. | [facility] | | | DEPARTMENT OF | | | PATHOLOGY | + + + + + + + + | Performing | Address | City/State/Zipcode | Phone Number | | Organization | | | | + + + + + | [facility] DEPARTMENT OF | [address] | [place] [address] | | | PATHOLOGY | [address] | | | + + + + + CELL COUNT ONLY, BODY FLUID (04/20/2009 12:03 PM PST) + +---------+ + + + | Component | Value | Ref Range | Performed | Pathologist | | | | | At | Signature | + +---------+ + + + | WBC, BODY | Dup req | 0 - 999 cu mm | [facility] | | | FLUID | | | DEPARTMENT | | | | | | OF | | | | | | PATHOLOGY | | + +---------+ + + + | RBC, BODY | Dup req | cu mm | [facility] | | | FLUID | | | DEPARTMENT | | | | | | OF | | | | | | PATHOLOGY | | + +---------+ + + + + + | Specimen | + + | Synovial fluid - | | Synovial fluid | + + + + + | Narrative | Performed At | + + + | Duplicate order. | [facility] | | | DEPARTMENT OF | | | PATHOLOGY | + + + + + + + + | Performing | Address | City/State/Zipcode | Phone Number | | Organization | | | | + + + + + | [facility] DEPARTMENT OF | [address] | [place] [address] | | | PATHOLOGY | [address] | | | + + + + + SYNOVIAL FLUID EXAMINATION (04/20/2009 11:44 AM PST) + + + + + + | Component | Value | Ref Range | Performed | Pathologist | | | | | At | Signature | + + + + + + | SYNOVIAL FL | Right knee. | | [facility] | | | SOURCE | | | DEPARTMENT | | | | | | OF | | | | | | PATHOLOGY | | + + + + + + | WBC | 236 (H) | 0 - 200 /cu mm | [facility] | | | SYNOVIAL | | | DEPARTMENT | | | FLUID | | | OF | | | | | | PATHOLOGY | | + + + + + + | RBC | [id number] | /cu mm | [facility] | | | SYNOVIAL | | | DEPARTMENT | | | FLUID | | | OF | | | | | | PATHOLOGY | | + + + + + + | TOTAL CELLS | 100 | | [facility] | | | COUNTED | | | DEPARTMENT | | | | | | OF | | | | | | PATHOLOGY | | + + + + + + | NEUTROPHIL( | 9 | 0 - 25 % | [facility] | | | SYN FL) | | | DEPARTMENT | | | | | | OF | | | | | | PATHOLOGY | | + + + + + + | LYMPHOCYTES | 25 | % | [facility] | | | (SYN FL) | | | DEPARTMENT | | | | | | OF | | | | | | PATHOLOGY | | + + + + + + | MONOCYTES(S | 66 | % | [facility] | | | YN FL) | | | DEPARTMENT | | | | | | OF | | | | | | PATHOLOGY | | + + + + + + | SYNOVIAL | Normal | Normal | [facility] | | | VISCOSITY | | | DEPARTMENT | | | | | | OF | | | | | | PATHOLOGY | | + + + + + + | CLOT | None | None | [facility] | | | FORMATION | | | DEPARTMENT | | | | | | OF | | | | | | PATHOLOGY | | + + + + + + | CRYSTALS | Negative | | [facility] | | | | | | DEPARTMENT | | | | | | OF | | | | | | PATHOLOGY | | + + + + + + | MUCIN | Fair (A) | Good | [facility] | | | | | | DEPARTMENT | | | | | | OF | | | | | | PATHOLOGY | | + + + + + + + + | Specimen | + + | Synovial fluid - | | Synovial fluid | + + + + + | Narrative | Performed At | + + + | Synovial Fluid Exam | [facility] | | | DEPARTMENT OF | | | PATHOLOGY | + + + + + + + + | Performing | Address | City/State/Zipcode | Phone Number | | Organization | | | | + + + + + | [facility] | [address] | [place] [address] | | | PATHOLOGY | [address] | | | + + + + + documented in this encounter Visit Diagnoses + + | Diagnosis | + + | Arthralgia - Primary Pain in joint, site unspecified | + + documented in this encounter"
--- OUTSIDE RECORDS SUMMARY | ~2018-06-30 | XMS | Encounter Summary ---
Demographics + + + | Address | [address] | | | [place] [address] | + + + | Home Phone | | + + + | Preferred Language | Unknown | + + + | Marital Status | | + + + | Methodist Affiliation | CATRACHITO | + + + | Race | or | + + + | Ethnic Group | Not or | + + + Author + + + | Author | [facility] | + + + | Organization | [facility] | + + + | Address | Unknown | + + + | Phone | Unavailable | + + + Support + + +---------+ + | Name | Relationship | Address | Phone | + + +---------+ + | Isaias Salas | ECON | Unknown | | + + +---------+ + Care Team Providers + +------+ + | Care Mc Kay Machine Operator Name | Role | Phone | [...] 09/29/ | Office | Rheumatology at | ValerioToshaLorena, | ERRONEOUS ENCOUNTER | | 2008 | Visit | Isreal Dixon | MD | - NO DIAGNOSIS | | | | [address] | | (Primary Dx) | | | | [facility] | | | | | | Mailcode: [id number] | | | | | | Isreal Dixon | | | | | | [place], [place] | | | | | | [address] | | | | | | [phone] | | | +--------+---------+ + + + [...]
--- OUTSIDE RECORDS SUMMARY | ~2018-06-30 | XMS | Clinical Summary ---
Demographics + + + | Address | [address] | | | [place] [address] | + + + | Home Phone [...] Team Providers + +------+ + | Care Patrol Deputy Sheriff Name | Role | Phone | + +------+ + | Jairon Siegel | PP | | + +------+ + Source Comments AGATA is fully live on both EpicCare Ambulatory and EpicCare InPatient.[facility] Allergies + + + + + + [...] + + + + + | Pneumococcal (Adult) | | | | | (1 of 2 - PCV13) | 4 | | | + + + + + | Influenza (Flu) | | | | | vaccination (Season | 9 | | | | Ended) | | | | + + + [...] | [facility] | [id number] | 02/20/19 | [phone] | [address] | [address]ica | | | PLUS | | 14-Pre | 6 | [address] | id | | | OPEN | | sent | | [place], [place] | | | | CARD | | | | [phone] | | + +--------+ +--------+ + +--------+ | [facility] | [facility] | [id number] | Effect | | | [...] Person | Self | [birth year] | [address] | | | al/Fam | | 1950 | [phone] | [place] [address] | | | [place] | | | 7 (Home) | | + +--------+ +--------+ + + | Trudy Salas | Agency | Self | [birth year] | | [address] | | | | | 1950 | [address] | [place] [address] | | | | | | 7 ([place]) | | + +--------+ +--------+ + + Advance Directives + + + + + | Type | Date Recorded | Patient | Explanation | | | | Cotton Expert | | + + + + + | Advance | | | | | Directives and | | | | | Living Will | | | | + + + + + | Power of | | | | | Triage Registered Nurse | | | | + + + [...]
--- OUTSIDE RECORDS SUMMARY | ~2018-06-30 | XMS | Encounter Summary ---
Demographics + + + | Address | [address] | | | [place] [address] | + + + | Home Phone | | + + + | Preferred Language | Unknown | + + + | Marital Status | | + + + | Gnosticism Affiliation | CATRACHITO | + + + | Race | or | + + + | Ethnic Group | Not or | + + + Author + + + | Author | [facility] | + + + | Organization | [facility] | + + + | Address | Unknown | + + + | Phone | Unavailable | + + + Support + + +---------+ + | Name | Relationship | Address | Phone | + + +---------+ + | Isaias Salas | ECON | Unknown | | + + +---------+ + Care Team Providers + +------+ + | Care Service Administrator Name | Role | Phone | + [...] | | Center at [address] | [address] | | | | | [address] | [place], [place] | | | | | Mailcode: [place] | [address] | | | | | [facility] and | [phone] | | | | | [facility] [address] | | | | | | [place], [place] | | | | | | [address] | | | | | | [phone] | | | +--------+ + + + [...]
--- OUTSIDE RECORDS SUMMARY | ~2018-06-30 | XMS | Encounter Summary ---
Demographics + + + | Address | [address] | | | [place] [address] | + + + | Home Phone | | + + + | Preferred Language | Unknown | + + + | Marital Status | | + + + | Jain Affiliation | CATRACHITO | + + + | Race | or | + + + | Ethnic Group | Not or | + + + Author + + + | Author | [facility] | + + + | Organization | [facility] | + + + | Address | Unknown | + + + | Phone | Unavailable | + + + Support + + +---------+ + | Name | Relationship | Address | Phone | + + +---------+ + | Isaias Salas | ECON | Unknown | | + + +---------+ + Care Team Providers + +------+ + | Care Shovel Logger Name | Role | Phone | + [...] | | 2013 | | Center at [facility] [address] | [address] | Review (CT abdomen/ | | | [address] | [place], [place] | pelvis 08/16/13 and | | | | Mailcode: Center | [address] | 12/13/12) | | | | for Health and | [phone] | | | | | [address] [address] | | | | | | [place], [place] | | | | | | [address] | | | | | | [phone] | | | +--------+ + + + [...] - 09/24/2013 3:34 PM PDTImages viewable in Loccie. documented in this encounter Plan of Treatment Not on filedocumented as of this encounter Visit Diagnoses Not on filedocumented in this encounter"
--- OUTSIDE RECORDS SUMMARY | ~2018-06-30 | XMS | Encounter Summary ---
Demographics + + + | Address | [address] | | | [place] [address] | + + + | Home Phone | | + + + | Preferred Language | Unknown | + + + | Marital Status | | + + + | Shinto Affiliation | CATRACHITO | + + + | Race | or | + + + | Ethnic Group | Not or | + + + Author + + + | Author | [facility] | + + + | Organization | [facility] | [...] Team Providers + +------+ + | Care Structural Designer Name | Role | Phone | + [...] 07/15/ | Office | Rheumatology at | Gurpreet Contreras, | Arthralgia (Primary | | 2010 | Visit | Isreal Dixon | | Dx) | | | | [address] | | | | | | [facility] | | | | | | Mailcode: [id number] | | | | | | Isreal Dixon | | | | | | [place], [place] | | | | | | [address] | | | | | | [phone] | | | +--------+---------+ + + + [...] information with Jackie here at the front desk clerk. Anahy Contreras MD documented in this encounter [...] of care. 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 No problem [...] she carries dx of rheumatoid arthritis, tho [facility] currently without evidence of active synovitis and [...] minutes wit h the patient in a [id number] meeting and >50% time was spent in medically indicated couns eling, and education. I have also answered all the questions raised. The history, findings and treatment plan that I have documented were reviewed with the [facility] physician at the time of this encounter. Dr. Murphy agrees that my assessment plan and ser vices provided are appropriate. GURPREET CONTRERAS MD RHEUMATOLOGY FELLOWS [address] [place] [address] Mailcode: [id number] [facility] [address] documented in this en counter Plan of [...]
--- OUTSIDE RECORDS SUMMARY | ~2018-06-30 | XMS | Encounter Summary ---
Demographics + + + | Address | [address] | | | [place] [address] | + + + | Home Phone | | + + + | Preferred Language | Unknown | + + + | Marital Status | | + + + | Christianity Affiliation | CATRACHITO | + + + | Race | or | + + + | Ethnic Group | Not or | + + + Author + + + | Author | [facility] | + + + | Organization | [facility] [...] Team Providers + +------+ + | Care Special Education Professor Name | Role | Phone | + [...] MD | | | | | [address] | | | | | | [facility] | | | | | | Mailcode: [id number] | | | | | | Isreal Dixon | | | | | | [place], [place] | | | | | | [address] | | | | | | [phone] | | | +--------+ + + + [...]
--- OUTSIDE RECORDS SUMMARY | ~2018-06-30 | XMS | Encounter Summary ---
Demographics + + + | Address | [address] | | | [place] [address] | + + + | Home Phone | | + + + | Preferred Language | Unknown | + + + | Marital Status | | + + + | Denominational Affiliation | CATRACHITO | + + + | Race | or | + + + | Ethnic Group | Not or | + + + Author + + + | Author | [facility] | + + + | Organization | [facility] | [...] Team Providers + +------+ + | Care Bottom Turning Lathe Tender Name | Role | Phone | + +------+ + | Jairon Siegel | PCP | | + +------+ + Encounter Details +--------+ + + + + | Date | Type | Department | Care Team | Description | +--------+ + + + + | 01/31/ | Abstract | Dig[facility]ive [facility] | Lucille De La Rosa, | | | 2011 | | Center at [facility] [address] | [address] | | | | | [address] | [place], [place] | | | | | Mailcode: [place] | [address] | | | | | Health and | [phone] | | | | | [facility] [address] | | | | | | [place], [place] | | | | | | [address] | | | | | | [phone] | | | +--------+ + + + [...]
--- OUTSIDE RECORDS SUMMARY | ~2018-06-30 | XMS | Encounter Summary ---
Demographics + + + | Address | [address] | | | [place] [address] | + + + | Home Phone | | + + + | Preferred Language | Unknown | + + + | Marital Status | | + + + | Christian Affiliation | CATRACHITO | + + + | Race | or | + + + | Ethnic Group | Not or | + + + Author + + + | Author | [facility] | + + + | Organization | [facility] [...] Team Providers + +------+ + | Care Dull Coat Mill Operator Name | Role | Phone | [...] | | | [address] | [place], [place] | | | | | Mailcode: Center | [address] | | | | | for Health and | [phone] | | | | | [facility] | | | | | | [place], [place] | | | | | | [address] | | | | | | [phone] | | | +--------+ + + + [...]
--- OUTSIDE RECORDS SUMMARY | ~2018-06-30 | XMS | Encounter Summary ---
Demographics + + + | Address | [address] | | | [place] [address] | + + + | Home Phone | | + + + | Preferred Language | Unknown | + + + | Marital Status | | + + + | Hoahaoism Affiliation | CATRACHITO | + + + | Race | or | + + + | Ethnic Group | Not or | + + + Author + + + | Author | [facility] | + + + | Organization | [facility] | + + + | Address | Unknown | + + + | Phone | Unavailable | + + + Support + + +---------+ + | Name | Relationship | Address | Phone | + + +---------+ + | Isaias Salas | ECON | Unknown | | + + +---------+ + Care Team Providers + +------+ + | Care Airline Operations Agent Name | Role | Phone | + [...] | | [facility] [address] | [address] | | | | | [address] | [place], [place] | | | | | Mailcode: [place] | [address] | | | | | [facility] and | [phone] | | | | | [facility] | | | | | | [place], [place] | | | | | | [address] | | | | | | [phone] | | | +--------+ + + + [...]
--- OUTSIDE RECORDS SUMMARY | ~2018-06-30 | XMS | Encounter Summary ---
Demographics + + + | Address | [address] | | | [place] [address] | + + + | Home Phone [...] + + | Author | [facility] | + + + | Organization | [facility] | + + + | Address | Unknown | + + + | Phone | Unavailable | + + + Support + + +---------+ + | Name | Relationship | Address | Phone | + + +---------+ + | Isaias Salas | ECON | Unknown | | + + +---------+ + Care Team Providers + +------+ + | Care Building Performance Specialist Name | Role | Phone | [...] Karlo | | | | | | [facility] | | | | | | Mailcode: PV35 | | | | | | Physicians [address] | | | | | | [place], [place] | | | | | | [address] | | | | | | [phone] | | | +--------+ + + + [...]
--- OUTSIDE RECORDS SUMMARY | ~2018-06-30 | XMS | Encounter Summary ---
Demographics + + + | Address | [address] | | | [place] [address] | + + + | Home Phone | | + + + | Preferred Language | Unknown | + + + | Marital Status | | + + + | Buddhist Affiliation | CATRACHITO | + + + | Race | or | + + + | Ethnic Group | Not or | + + + Author + + + | Author | [facility] | + + + | Organization | [facility] | + [...] Team Providers + +------+ + | Care Cloth Mercerizer Back Tender Name | Role | Phone | [...] 12/24/ | Office | Rheumatology at | Ihsan Winters, | ERRONEOUS ENCOUNTER | | 2009 | Visit | Isreal Dixon | MD | - NO DIAGNOSIS | | | | [address] | | (Primary Dx) | | | | [facility] | | | | | | Mailcode: PV35 | | | | | | Isreal Dixon | | | | | | [place], [place] | | | | | | [address] | | | | | | [phone] | | | +--------+---------+ + + + [...] this encounter Progress Ihsan Mendoza MD - 12/08/2009 10:14 AM PDTPatient did [...]
--- OUTSIDE RECORDS SUMMARY | ~2018-06-30 | XMS | Encounter Summary ---
Demographics + + + | Address | [address] | | | [place] [address] | + + + | Home Phone [...] + + + | Author | [facility] | + + + | Organization | [facility] | + + + | Address | Unknown | + + + | Phone | Unavailable | + + + Support + + +---------+ + | Name | Relationship | Address | Phone | + + +---------+ + | Isaias Salas | ECON | Unknown | | + + +---------+ + Care Team Providers + +------+ + | Care Supervisor Print Line Name | Role | Phone | + [...] Dietrich | | | | | | [facility] | | | | | | Mailcode: PV35 | | | | | | Isreal Dixon | | | | | | [place], [place] | | | | | | [address] | | | | | | [phone] | | | +--------+ + + + [...]
--- OUTSIDE RECORDS SUMMARY | ~2018-06-30 | XMS | Encounter Summary ---
Demographics + + + | Address | [address] | | | [place] [address] | + + + | Home Phone | | + + + | Preferred Language | Unknown | + + + | Marital Status | | + + + | Church Affiliation | CATRACHITO | + + + | Race | or | + + + | Ethnic Group | Not or | + + + Author + + + | Author | [facility] | + + + | Organization | [facility] | + + [...] Providers + +------+ + | Care Industrial Truck Operator Name | Role | Phone | [...] | | | | | [facility] | | | | | | Mailcode: PV35 | | | | | | Physicians Zack | | | | | | [place], [place] | | | | | | [address] | | | | | | [phone] | | | +--------+--------+ + + + [...]
--- OUTSIDE RECORDS SUMMARY | ~2018-06-30 | XMS | Encounter Summary ---
Demographics + + + | Address | [address] | | | [place] [address] | + + + | Home Phone | | + + + | Preferred Language | Unknown | + + + | Marital Status | | + + + | Catholic Affiliation | CATRACHITO | + + + | Race | or | + + + | Ethnic Group | Not or | + + + Author + + + | Author | [facility] | + + + | Organization | [facility] | + + + | Address | Unknown | + + + | Phone | Unavailable | + + + Support + + +---------+ + | Name | Relationship | Address | Phone | + + +---------+ + | Isaias Salas | ECON | Unknown | | + + +---------+ + Care Team Providers + +------+ + | Care Service Worker Name | Role | Phone | [...] MD | 2.5mg) | | | | [address] | | | | | | [facility] | | | | | | Mailcode: PV35 | | | | | | Physicians [facility]ack | | | | | | [place], [place] | | | | | | [address] | | | | | | [phone] | | | +--------+--------+ + + + [...]
--- OUTSIDE RECORDS SUMMARY | ~2018-06-30 | XMS | Encounter Summary ---
Demographics + + + | Address | [address] | | | [place] [address] | + + + | Home Phone [...] + + | Author | [facility] | + + + | Organization | [facility] | + + + | Address | Unknown | + + + | Phone | Unavailable | + + + Support + + +---------+ + | Name | Relationship | Address | Phone | + + +---------+ + | Isaias Salas | ECON | Unknown | | + + +---------+ + Care Team Providers + +------+ + | Care Animal Science Instructor Name | Role | Phone | + [...] | | [facility] [address] | [address] | | | | | [address] | [place], [place] | | | | | Mailcode: [place] | [address] | | | | | [facility] and | [phone] | | | | | [facility] 2 | | | | | | [place], [place] | | | | | | [address] | | | | | | [phone] | | | +--------+ + + + [...]
--- OUTSIDE RECORDS SUMMARY | ~2018-06-30 | XMS | Encounter Summary ---
Demographics + + + | Address | [address] | | | [place] [address] | + + + | Home Phone [...] + + + | Author | [facility] | + + + | Organization | [facility] | + + + | Address | Unknown | + + + | Phone | Unavailable | + + + Support + + +---------+ + | Name | Relationship | Address | Phone | + + +---------+ + | Isaias Salas | ECON | Unknown | | + + +---------+ + Care Team Providers + +------+ + | Care Care Information Associate Name | Role | Phone | [...] Results | | 2010 | on | Isreal Huynh MD | | | | | [address] | | | | | | [facility] | | | | | | Mailcode: PV35 | | | | | | Isreal Dixon | | | | | | [place], [place] | | | | | | [address] | | | | | | [phone] | | | +--------+ + + + [...]
--- OUTSIDE RECORDS SUMMARY | ~2018-06-30 | XMS | Encounter Summary ---
Demographics + + + | Address | [address] | | | [place] [address] | + + + | Home Phone [...] | [facility] | + + + | Organization | [facility] | + + + | Address | Unknown | + + + | Phone | Unavailable | + + + Support + + +---------+ + | Name | Relationship | Address | Phone | + + +---------+ + | Isaias Salas | ECON | Unknown | | + + +---------+ + Care Team Providers + +------+ + | Care Driver Trainer Name | Role | Phone | + [...] | MD [address] | Scheduling | | | | [address] | [place], [place] | | | | | Mailcode: Center | [address] | | | | | for Health and | [phone] | | | | | [facility] 2 | | | | | | [place], [place] | | | | | | [address] | | | | | | [phone] | | | +--------+ + + + [...]
--- OUTSIDE RECORDS SUMMARY | ~2018-06-30 | XMS | Encounter Summary ---
Demographics + + + | Address | [address] | | | [place] [address] | + + + | Home Phone | | + + + | Preferred Language | Unknown | + + + | Marital Status | | + + + | Uatsdin Affiliation | CATRACHITO | + + + | Race | or | + + + | Ethnic Group | Not or | + + + Author + + + | Author | [facility] | + + + | Organization | [facility] | + + + | Address | Unknown | + + + | Phone | Unavailable | + + + Support + + +---------+ + | Name | Relationship | Address | Phone | + + +---------+ + | Isaias Salas | ECON | Unknown | | + + +---------+ + Care Team Providers + +------+ + | Care Genetic Supervisor Name | Role | Phone | [...] + + | 12/20/ | Hospital | [facility] [address] | Ladan Glynn, | | | 2011 - | Encounter | [address] | [address] | | | | | [place] [address] | [facility] [place] | | | 12/23/ | | [phone] | [address] | | | 2011 | | | [phone] | | | | | | | [...] however presented to th e ER in [facility] with RLQ abdominal and right flank pain and fevers to 102 per patient's re port. She was found to have a leukocytosis of 11.[address] was obtained. The CT showed mult iple small bowel diverticula and ileal thickening. She was started on zosyn and monitored o vernight and decision was made to transfer her to [facility] for further care. Zosyn was stopped [...] fiber due to diverticulitis. As discussed with therapy director. Activity NO DRIVING WHILE ON NARCOTICS. CONSTIPATION: [...] 'after hours' URGENT problems please call the [facility] grading machine operator at and ask fo r the "[facility] resident on-call". Your Follow-Up Plan Follow up with LADAN GLYNN MD in 4 weeks. (01/17 you have an appointment with Dr. Roly east) Contact information: [address] [facility] [address] Vitals on discharge: Ht 165.1 cm [...] Pain: After Your Visit", log into your [employer] account at [email or web address]. You can enter E907 in the OmniGuide" search box. Not on [employer]? Review the [employer] section of your After Visit Summary for directions on ho w to sign up. [phone] [employer]. Care instructions adapted under license by [facility] [place]. This care instruction is for use with your licensed healthcar e professional. If you have questions about a medical condition or this instruction, always ask your healthcare professional. [employer] disclaims any warranty or liabili ty for your use of this information. Content Version: 9.4.63521; Last Revised: June 13, 2011 Discharge Nurse: [...] Pain: After Your Visit", log into your [employer] account at [email or web address]. You can enter E907 in the SnapYeti Library" search box. Not on [employer]? Review the Sift Sciencehart section of your After Visit Summary for directions on ho w to sign up. [phone] [employer]. Care instructions adapted under license by [facility] [place]. This care instruction is for use with your licensed healthcar e professional. If you have questions about a medical condition or this instruction, always ask your healthcare professional. [employer] disclaims any warranty or liabili ty for your use of this information. Content Version: 9.4.21497; Last Revised: June 13, 2011 documented in [...] diverticulitis who presented as a transfer from [place], [place]. 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 Subjective: Trudy Salsa is a 61 y.o. Female who presented to [facility] a few days ago with severe abdominal pain. A CT indicated small bowel diverticulitis and she was given a d ose of zosyn. Since she was scheduled to have surgery with Dr. Glynn on December 28 here at [facility], they transferred her here for care. [...] a 61 y.o. Female transferred here from [place] for a small bowel diverticulitis. She has [...] her sx Scribed by Jefferson Herrera, MS3 [facility] Medical Student 2014 Pager [phone] I saw and examined this patient with [...] discharge patient in the AM. Sergio Madden, [id number] signed by Sergio Madden MD at 12/23/2011 9:20 PM PDTS Sergio ocampo MD - 12/22/2011 11:36 AM PDTFormatting of this note might be different fro m the original. [facility] Inpatient Progress Note Hospital Day #1 Author: SERGIO MADDEN MD Attending: Ladan Glynn MD ID: Trudy Salas Interval Hx: Transferred to [facility] from [place] last night. Febrile to 38.8 overnight. Chemistries: [...] 12/21/11699 - 12/22/1165812/22/11699 - 12/23/11 0659 Shift 2324-1208 0944-9209 2713-5422 Daily Total 6154-0753 9126-7480 9294-1493 Daily Total I N T A K E I.V. 937 871 7808 Shift Total 806 036 0265 O U T P U T Urine 241 847 3282 Urine 722 368 5792 Shift Total 311 997 3750 NET -255 130 -125 General: Awake, alert, [...] however presented to the E R in [facility] with RLQ abdominal and right flank pain and fevers to 102 per patient's repor t. She was found to have a leukocytosis of 11.[address] was obtained that showed some infla mmation of the ileum with diverticula. She was transferred to [facility] for management. Plan: 1. Inflammation of [...] discharge: TBD Attending Physician: Rj Madden MD [facility] Blue Surgery Pager# [phone] 11:37 AM 12/22/2011 Current Inpatient Medications Medication [...] [facility] | [address] | [place] [address] | | | SERVICES, CORE | PARK [...] + + + + + | [facility] | [address] | [place] [address] | | | SERVICES, CORE | PARK [...] | + + + + + | [facility] | [address] | [place] [address] | | | SERVICES, CORE | ADRIANO [...] [facility] | [address] | [place] [address] | | | SERVICES, MADDIE | ADRIANO [...] | | RESULT | Stool | | [facility] - | | | | Final | | [place] | | | | CULTURE | | [...] | + + + + + | [facility] - | [address] | [place] [address] | | | [place] | | | | + + + + + X-RAY PORTABLE CHEST 1 VIEW (12/22/2011 9:39 AM PDT) + + + + + + | Component | Value | Ref Range | Performed | Pathologist | | | | | At | Signature | + + + + + + | X-RAY | EXAM: MT CHEST 1 VIEW, | | | | [...] [facility] | [address] | [place] [address] | | | SERVICES, CORE | PARK [...] [facility] | [address] | [place] [address] | | | SERVICES, CORE | PARK [...] [facility] | [address] | [place] [address] | | | SERVICES, CORE | PARK [...] | + + + + + | [facility] | [address] | [place] [address] | | | SERVICES, CORE | ADRIANO [...] [facility] | [address] | [place] [address] | | | SERVICES, CORE | PARK [...] [facility] | [address] | [place] [address] | | | SERVICES, CORE | ADRIANO [...] [facility] | [address] | [place] [address] | | | SERVICES, CORE | ADRIANO [...] view image for the detailed interpretation from Vinja results. | CARDIOLOGY | + + + + + + + + | Performing | Address | City/State/Zipcode | Phone Number | | Organization | | | | + + + + + | [facility] | [address] | [place], [place] | | | CARDIOLOGY | [address] | [address] | | + + + + + [...] [facility] | [address] | [place] [address] | | | SERVICES, CORE | PARK [...] [facility] | [address] | [place] [address] | | | SERVICES, CORE | PARK [...] [facility] | [address] | [place] [address] | | | SERVICES, CORE | PARK [...] [facility] | [address] | [place] [address] | | | SERVICES, MADDIE | ADRIANO [...] | | | | | NEEDED, Starting [facility] 12/22/11 at | | PM PDT | [...]
--- OUTSIDE RECORDS SUMMARY | ~2018-06-30 | XMS | Encounter Summary ---
Demographics + + + | Address | [address] | | | [place] [address] | + + + | Home Phone | | + + + | Preferred Language | Unknown | + + + | Marital Status | | + + + | Zoroastrian Affiliation | CATRACHITO | + + + | Race | or | + + + | Ethnic Group | Not or | + + + Author + + + | Author | [facility] | + + + | Organization | [facility] | + + + | Address | Unknown | + + + | Phone | Unavailable | + + + Support + + +---------+ + | Name | Relationship | Address | Phone | + + +---------+ + | Isaias Ryan | ECON | Unknown | | + + +---------+ + Care Team Providers + +------+ + | Care Primer Inserting Machine Adjuster Name | Role | Phone | + [...] | | | ogy | Diarrhea | [address] | [address] | | | | | Bloody | [address] | [address] | | | | | diarrhea | [address] | Mailcode: | | | | | Abdominal | [place], [place] | Center for | | | | | pain | [address] | Health and | | | | | Procedures | Phone: | [place], | | | | | CONSULT TO | [phone] | [address] | | | | | GASTROENTERO | Fax: | [place], [place] | | | | | [place] | [phone] | [address] | | | | | | | Phone: | | | | | | | [phone] | | | | | | | Fax: | | | | | | | [phone] | +--------+--------+ + + + + Reason [...] | | | | | | | [place], [place] | | | | | | | [address] | | | | | | | Phone: | | | | | | | [phone] | | | | | | | Fax: | | | | | | | [phone] | +--------+--------+ + + + + Encounter Details +--------+---------+ + + + | Date | Type | Department | Care Team | Description | +--------+---------+ + + + | 09/23/ | Office | Digestive Health | Luclile De La Rosa, | Diarrhea (Primary | | 2013 | Visit | Center at [facility] [address] | MD [address] | Dx); Bloody | | | | [address] | [place], [place] | diarrhea; Abdominal | | | | Mailcode: [place] | [address] | pain | | | | for Health and | [phone] | | | | | [facility] | | | | | | [place], [place] | | | | | | [address] | | | | | | [phone] | | | +--------+---------+ + + + [...] repair. HPI: Ms. Ryan was seen by [facility] ED in [facility] [place] 2 weeks ago for severe abdominal [...] Her last colonoscopy was in 2011 at [facility] with Dr. Patel for similar complaints [...] possible colonoscopy. - Referral to GI at [facility] to discuss her functional abdominal pain and chronic diarrhea- 4-5 xs daily. - Recommend starting Metamucil supplementation for chronic diarrhea - Smoking cessation discussed Lucille De La Rosa MD, [facility] Naturopathic Doctor Division of General and Gastrointestinal Surgery Department of Surgery, [address] [facility] [place] [address] office clinic ndresAnastasia pendleton Raven - 05/2013 1:25 PM PDT [facility] NOTEAuthor: Anastasia Gutierrez MS4 Date: [...] antibiotics. HPI: Ms. Ryan was seen by [facility] ED in [facility], [place] 2 weeks ago for severe abdominal [...] Her last colonoscopy was in 2011 at [facility] with Dr. Patel for similar complaints [...] possible colonoscopy. - Referral to GI at [facility] - Metamucil supplementation for chronic diarrhea - Smoking cessation discussed This patient was seen with Dr. Lucille De La Rosa and Dr. Smith Padilla. Anastasia Gutierrez, MS4 [facility] Department of Surgery documented in this encount [...]
--- OUTSIDE RECORDS SUMMARY | ~2018-06-30 | XMS | Encounter Summary ---
Demographics + + + | Address | [address] | | | [place] [address] | + + + | Home Phone | | + + + | Preferred Language | Unknown | + + + | Marital Status | | + + + | Alevism Affiliation | CATRACHITO | + + + | Race | or | + + + | Ethnic Group | Not or | + + + Author + + + | Author | [facility] | + + + | Organization | [facility] | + + + | Address | Unknown | + + + | Phone | Unavailable | + + + Support + + +---------+ + | Name | Relationship | Address | Phone | + + +---------+ + | Isaias Salas | ECON | Unknown | | + + +---------+ + Care Team Providers + +------+ + | Care Doll Dresser Name | Role | Phone | + [...] | | Center [facility] [address] | [address] | | | | | [address] | [place], [place] | | | | | Mailcode: [place] | [address] | | | | | [facility] and | [phone] | | | | | [facility] 2 | | | | | | [place], [place] | | | | | | [address] | | | | | | [phone] | | | +--------+ + + + [...]
--- OUTSIDE RECORDS SUMMARY | ~2018-06-30 | XMS | Encounter Summary ---
Demographics + + + | Address | [address] | | | [place] [address] | + + + | Home Phone [...] Author | [facility] | + + + | Organization | [facility] | [...] Team Providers + +------+ + | Care Lay Health Advocate Name | Role | Phone | + [...] [address] | | | | | | [facility] | | | | | | Mailcode: PV35 | | | | | | Physicians [address] | | | | | | [place], [place] | | | | | | [address] | | | | | | [phone] | | | +--------+--------+ + + + [...]
--- OUTSIDE RECORDS SUMMARY | ~2018-06-30 | XMS | Encounter Summary ---
Demographics + + + | Address | [address] | | | [place] [address] | + + + | Home Phone | | + + + | Preferred Language | Unknown | + + + | Marital Status | | + + + | Synagogue Affiliation | CTARACHITO | + + + | Race | or | + + + | Ethnic Group | Not or | + + + Author + + + | Author | [facility] | + + + | Organization | [facility] | [...] Team Providers + +------+ + | Care Coal Chemist Name | Role | Phone | + [...] | | hernia | [address] | [facility] [place] | | | | | Procedures | [address] | [address] | | | | | REQUEST TO | Gomez | Phone: | | | | | SURGERY | [address] | [phone] | | | | | DISHTANK OPERATOR | [place], [place] | Fax: | | | | | [place] REPAIR | [address] | [phone] | | | | | RECURR INCIS | | | | | | | | | | | | | | HERNIA,REDUC | | | | | | | [place] REPAIR | | | | | | | INCIS HERNIA | | | | | | | [address] [place] | | | | | | | [...] | mention of | [facility] [address] | [place], [place] | | | | | obstruction | [address] | [address] | | | | | or gangrene | AVE | Phone: | | | | | Procedures | [place], | [phone] | | | | | CONSULT TO | [place] [address] | Fax: | | | | | GENERAL | Phone: | [phone] | | | | | SURGERY | [phone] | | | | | | | Fax: | | | | | | | [phone] | | +--------+ + + + + [...] | | | [address] | [place], [place] | | | | | Mailcode: [place] | [address] | | | | | for Health and | [phone] | | | | | [facility] 2 | | | | | | [place], [place] | | | | | | [address] | | | | | | [phone] | | | +--------+---------+ + + + [...] Garcia RN - 12/07/2011 10:56 AM PDTE[facility]IC[facility]IN[facility]INSTRU[facility] INFORMATION [facility] General Surgery Office Toll-free: ext [phone] Surgery Date: December 29, 2011 Procedure: Open [...] the surgery. Please see the list below, [facility] has a list of products that contain [...] please call the General Surgery Office at [phone] for [id number]. PARKING Parking for patients and visitors is available in the [facility] structure located across from the emergency department. Patient parking is available on level 1 and 3. Mete red parking is available on the top level. CHECKING IN FOR SURGERY For Hospital Admission (in-patient) you will check in on the day of [facility] located on the 9th floor of [facility] TRANSPORTATION You will require transportation home on the day of discharge. Pain medications and physica l activity restrictions may limit your ability to drive safely. CANCELLING YOUR PROCEDURE Please notify the general surgery office at [phone] as soon as possible should you nee [...] prior to your surgery. PRODUCTS CONTAINING ASPIRIN Bozena-Woodbury, Anacin, Anexsia with Codeine, Andynos, Aspirin, Aspirin suppositories, Ascrip tin, Aspergum, Axotal, B-A-C, Baby Aspirin, Piotr, BC Powder, Bexophene, Buffaprin, Bufferin , Buffinol, Cama-Arthritis Strength, Congespirin, Ral[place], Coricidin, Damason, Darvon, Dristan, Isadora-Gesic, Digel, Dolprin #3 Tablets, Donatab, Doxaphene, Duragesic, Easprin, Ecotrin, Emag rin Forte, Emiprin, Emprazil, Equagesic, Equazine M, Excedrin, Fiogesic, Fiorgen PH, Fiorice t, Fiorinal, 4-Way Cold Tablet Gemnisyn, Indocin, Liquprin, Lortab ASA, Magnaprin, Marnal, Meprobamate, Midol, Momentum, N orgesic, Sebring, Orphengesic, Pabalate, P-A-C, Percodan, Presalin, Robaxasil, Roxiprin, Trey eto, Salocol SK-65 Compound, Sine-Aid, Sine-Off,, Neshanic Station, Supac, Talwin Compound, Trigesic, Tolectin , Traiminicin, Vanquish, ZORprin, Zomax PRODUCTS CONTAINING IBUPROFEN Advil, Aleve, Haltran, Medipren, Midol, Motrin, Naproxyn, Nuprin, Rufen OTHER PRODUCTS WHICH MAY PROMOTE BLEEDING Vitamin E, Gingko Biloba, Marine Fatty Acids, [place]-3 Fish Oil Supplements documented in this encounter Progress Notes Lucille De La Rosa MD - 12/08/2011 1:05 PM PDTI saw and evaluated the patient. I agree with the findings and the plan of care as documented in the resident s note. MD LUCILLE Dumont MD [facility] [address] Mailcode: [place] [address] Jona Davis MD - 12/07/2011 10:56 AM [...] stairs without difficulty. She is referred to [facility] for possible component separation and repair of [...] plan. Jona Conley MD MIS/Bariatric Fellow, Pager [phone] [facility] Attending provider: Lucille De La Rosa MD [...]
--- OUTSIDE RECORDS SUMMARY | ~2018-06-30 | XMS | Encounter Summary ---
Demographics + + + | Address | [address] | | | [place] [address] | + + + | Home Phone [...] [facility] | + + + | Organization | [facility] | + + + | Address | Unknown | + + + | Phone | Unavailable | + + + Support + + +---------+ + | Name | Relationship | Address | Phone | + + +---------+ + | Isaias Salas | ECON | Unknown | | + + +---------+ + Care Team Providers + +------+ + | Care New Accounts Banking Representative Name | Role | Phone | + [...] | | Center at [facility] [address] | [address] | | | | | [address] | [place], [place] | | | | | Mailcode: [place] | [address] | | | | | [facility] and | [phone] | | | | | [facility] 2 | | | | | | [place], [place] | | | | | | [address] | | | | | | [phone] | | | +--------+ + + + [...]
--- OUTSIDE RECORDS SUMMARY | ~2018-06-30 | XMS | Encounter Summary ---
Demographics + + + | Address | [address] | | | [place] [address] | + + + | Home Phone | | + + + | Preferred Language | Unknown | + + + | Marital Status | | + + + | Protestant Affiliation | CATRACHITO | + + + | Race | or | + + + | Ethnic Group | Not or | + + + Author + + + | Author | [facility] | + + + | Organization | [facility] | + [...] Team Providers + +------+ + | Care Dental Amalgam Processor Name | Role | Phone | + [...] [address] | | | | | | [facility] | | | | | | Mailcode: PV35 | | | | | | Physicians Zack | | | | | | [place], [place] | | | | | | [address] | | | | | | [phone] | | | +--------+--------+ + + + [...]
--- OUTSIDE RECORDS SUMMARY | ~2018-06-30 | XMS | Encounter Summary ---
Demographics + + + | Address | [address] | | | [place] [address] | + + + | Home Phone | | + + + | Preferred Language | Unknown | + + + | Marital Status | | + + + | Denominational Affiliation | CATRACHITO | + + + | Race | or | + + + | Ethnic Group | Not or | + + + Author + + + | Author | [facility] | + + + | Organization | [facility] | + + + | Address | Unknown | + + + | Phone | Unavailable | + + + Support + + +---------+ + | Name | Relationship | Address | Phone | + + +---------+ + | Isaias Salas | ECON | Unknown | | + + +---------+ + Care Team Providers + +------+ + | Care Clay Press Operator Name | Role | Phone | + +------+ + | Jairon Siegel | PCP | | + +------+ + Reason for Visit + + + | Reason | Comments | + + + | Medical Records | [facility] - OUTSIDE RECORD: Chart note 11/25/2013 | | Review | | + + + Encounter Details +--------+ + + + + | Date | Type | Department | Care Team | Description | +--------+ + + + + | 12/06/ | Abstract | Digestive Health | Lucille De La Rosa, | Medical Records | | 2013 | | Center at [address] | [address] | Review ([facility] - | | | | [address] | [place], [place] | OUTSIDE RECORD: | | | | Mailcode: [place] | [address] | Chart note | | | | for Health and | [phone] | 11/25/2013) | | | | [facility] | | | | | | [place], [place] | | | | | | [address] | | | | | | [phone] | | | +--------+ + + + [...]
--- OUTSIDE RECORDS SUMMARY | ~2018-06-30 | XMS | Encounter Summary ---
Demographics + + + | Address | [address] | | | [place] [address] | + + + | Home Phone [...] + + | Author | [facility] | + + + | Organization | [facility] | + + + | Address | Unknown | + + + | Phone | Unavailable | + + + Support + + +---------+ + | Name | Relationship | Address | Phone | + + +---------+ + | Isaias Salas | ECON | Unknown | | + + +---------+ + Care Team Providers + +------+ + | Care Foam Gun Operator Name | Role | Phone | [...] | | 2012 | | Center at [facility] [address] | [address] | pre surgical | | | | [address] | [place], [place] | anesthesia | | | | Mailcode: [place] | [phone] | evaluation) | | | | for [facility] and | [phone] | | | | | [place] [address] | | | | | | [place], [place] | | | | | | [address] | | | | | | [phone] | | | +--------+ + + + [...]
--- OUTSIDE RECORDS SUMMARY | ~2018-06-30 | XMS | Encounter Summary ---
Demographics + + + | Address | [address] | | | [place] [address] | + + + | Home Phone | | + + + | Preferred Language | Unknown | + + + | Marital Status | | + + + | Christianity Affiliation | CATRACHITO | + + + | Race | or | + + + | Ethnic Group | Not or | + + + Author + + + | Author | [facility] | + + + | Organization | [facility] | + + + | Address | Unknown | + + + | Phone | Unavailable | + + + Support + + +---------+ + | Name | Relationship | Address | Phone | + + +---------+ + | Isaias Salas | ECON | Unknown | | + + +---------+ + Care Team Providers + +------+ + | Care Countersinker Balance Screw Hole Name | Role | Phone | + [...] Dx) | | | | [facility] | | | | | | Mailcode: PV35 | | | | | | [address] [place] | | | | | | [place], [place] | | | | | | [address] | | | | | | [phone] | | | +--------+---------+ + + + [...]
--- OUTSIDE RECORDS SUMMARY | ~2018-06-30 | XMS | Clinical Summary ---
Demographics + + + | Address | [address] | | | [place] [address] | + + + | Home Phone | | + + + | Preferred Language | Unknown | + + + | Marital Status | | + + + | Bahai Affiliation | CATRACHITO | + + + [...] Team Providers + +------+ + | Care Combine Inspector Name | Role | Phone | + +------+ + | Jairon Siegel | PP | | + +------+ + Source Comments AGATA is fully live on both EpicCare Ambulatory and EpicCare InPatient.[facility] Allergies + + + + + [...] | OHP | xxxxxxxx | 02/20/19 | [phone] | [address] | [address] | | | PLUS | | 14-Pre | 6 | [address] | id | | | OPEN | | sent | | [place], [place] | | | | CARD | | | | [address] | | + +--------+ +--------+ + +--------+ | [facility] [facility] | [place] | [id number] | Effect | | | [...] Person | Self | [birth year] | [address] | | | al/Fam | | 1950 | [phone] | [place] [address] | | | rubens | | | 7 (Home) | | + +--------+ +--------+ + + | Trudy Salas | Agency | Self | [birth year] | | [address] | | | | | 1950 | [address] | [place] [address] | | | | | | 7 ([place]) | | + +--------+ +--------+ + + Advance Directives + + + + + | Type | Date Recorded | Patient | Explanation | | | | Vice President Digital Strategist | | + + + + + | Advance | | | | | Directives and | | | | | Living Will | | | | + + + + + | Power of | | | | | Aquatic Life Laborer | | | | + + + [...]
--- OUTSIDE RECORDS SUMMARY | ~2018-06-30 | XMS | Encounter Summary ---
Demographics + + + | Address | [address] | | | [place] [address] | + + + | Home Phone | | + + + | Preferred Language | Unknown | + + + | Marital Status | | + + + | Mandaen Affiliation | CATRACHITO | + + + | Race | or | + + + | Ethnic Group | Not or | + + + Author + + + | Author | [facility] | + + + | Organization | [facility] | [...] Team Providers + +------+ + | Care Graphic User Interface Designer Name | Role | Phone | [...] | | | | | [facility] | | | | | | Mailcode: PV35 | | | | | | [place] | | | | | | [place], [place] | | | | | | [address] | | | | | | [phone] | | | +--------+ + + + [...]
--- OUTSIDE RECORDS SUMMARY | ~2018-06-30 | XMS | Encounter Summary ---
Demographics + + + | Address | [address] | | | [place] [address] | + + + | Home Phone | | + + + | Preferred Language | Unknown | + + + | Marital Status | | + + + | Amish Affiliation | CATRACHITO | + + + | Race | or | + + + | Ethnic Group | Not or | + + + Author + + + | Author | [facility] | + + + | Organization | [facility] | + [...] Team Providers + +------+ + | Care Improvement Manager Name | Role | Phone | [...] | Telephone | Rheumatology at | Yolanda Cotnreras, | Test Results | | 2010 | | Physicians Zack Huynh MD | | | | | [address] | | | | | | [facility] | | | | | | Mailcode: PV35 | | | | | | [place] | | | | | | [place], [place] | | | | | | [address] | | | | | | [phone] | | | +--------+ + + + [...]
--- OUTSIDE RECORDS SUMMARY | ~2018-06-30 | XMS | Encounter Summary ---
Demographics + + + | Address | [address] | | | [place] [address] | + + + | Home Phone | | + + + | Preferred Language | Unknown | + + + | Marital Status | | + + + | Sikh Affiliation | CATRACHITO | + + + | Race | or | + + + | Ethnic Group | Not or | + + + Author + + + | Author | [facility] | + + + | Organization | [facility] [...] Team Providers + +------+ + | Care Direct Sales Consultant Name | Role | Phone | + +------+ + | No Pcp Per Patient | PCP | Unavailable | + +------+ + Encounter Details +--------+ + + + + | Date | Type | Department | Care Team | Description | +--------+ + + + + | 11/17/ | Abstract | Digestive Health | Clinic, Surgery | | | 2011 | | [place] [facility] [address] | | | | | | [address] | | | | | | Mailcode: [place] | | | | | | for Health and | | | | | | Healing, Building [address] | | | | | | [place], [place] | | | | | | [address] | | | | | | [phone] | | | +--------+ + + + [...]
--- OUTSIDE RECORDS SUMMARY | ~2018-06-30 | XMS | Encounter Summary ---
Demographics + + + | Address | [address] | | | [place] [address] | + + + | Home Phone | | + + + | Preferred Language | Unknown | + + + | Marital Status | | + + + | Holiness Affiliation | CATRACHITO | + + + | Race | or | + + + | Ethnic Group | Not or | + + + Author + + + | Author | [facility] | + + + | Organization | [facility] | + + + | Address | Unknown | + + + | Phone | Unavailable | + + + Support + + +---------+ + | Name | Relationship | Address | Phone | + + +---------+ + | Isaias Salas | ECON | Unknown | | + + +---------+ + Care Team Providers + +------+ + | Care Position Classifier Name | Role | Phone | + [...] | | 2010 | on | [place] | | | | | | [address] | | | | | | [facility] | | | | | | Mailcode: PV35 | | | | | | [place] | | | | | | [place], [place] | | | | | | [address] | | | | | | [phone] | | | +--------+ + + + [...]
--- OUTSIDE RECORDS SUMMARY | ~2018-06-30 | XMS | Encounter Summary ---
Demographics + + + | Address | [address] | | | [place] [address] | + + + | Home Phone | | + + + | Preferred Language | Unknown | + + + | Marital Status | | + + + | Restorationism Affiliation | CATRACHITO | + + + | Race | or | + + + | Ethnic Group | Not or | + + + Author + + + | Author | [facility] | + + + | Organization | [facility] | + [...] Team Providers + +------+ + | Care Behavioral Health Worker Name | Role | Phone | [...] [address] | | | | | | [facility] | | | | | | Mailcode: PV35 | | | | | | [address] [place] | | | | | | [place], [place] | | | | | | [address] | | | | | | [phone] | | | +--------+ + + + [...]
--- OUTSIDE RECORDS SUMMARY | ~2018-06-30 | XMS | Encounter Summary ---
Demographics + + + | Address | [address] | | | [place] [address] | + + + | Home Phone | | + + + | Preferred Language | Unknown | + + + | Marital Status | | + + + | Anabaptist Affiliation | CATRACHITO | + + + | Race | or | + + + | Ethnic Group | Not or | + + + Author + + + | Author | [facility] | + + + | Organization | [facility] | + + + | Address | Unknown | + + + | Phone | Unavailable | + + + Support + + +---------+ + | Name | Relationship | Address | Phone | + + +---------+ + | Isaias Salas | ECON | Unknown | | + + +---------+ + Care Team Providers + +------+ + | Care Cloth Finisher Name | Role | Phone | [...] | (Primary Dx) | | | | [facility] | | | | | | Mailcode: PV35 | | | | | | [place] | | | | | | [place], [place] | | | | | | [address] | | | | | | [phone] | | | +--------+---------+ + + + [...]
--- OUTSIDE RECORDS SUMMARY | ~2018-06-30 | XMS | Encounter Summary ---
Demographics + + + | Address | [address] | | | [place] [address] | + + + | Home Phone | | + + + | Preferred Language | Unknown | + + + | Marital Status | | + + + | Rastafari Affiliation | CATRACHITO | + + + | Race | or | + + + | Ethnic Group | Not or | + + + Author + + + | Author | [facility] | + + + | Organization | [facility] | + + + | Address | Unknown | + + + | Phone | Unavailable | + + + Support + + +---------+ + | Name | Relationship | Address | Phone | + + +---------+ + | Isaias Salas | ECON | Unknown | | + + +---------+ + Care Team Providers + +------+ + | Care Conciliation Court Judge Name | Role | Phone | + +------+ + | No Pcp Per Patient | PCP | Unavailable | + +------+ + Encounter Details +--------+ + + + + | Date | Type | Department | Care Team | Description | +--------+ + + + + | 07/06/ | Abstract | Digestive Health | Clinic, Surgery | | | 2011 | | [place] at [facility] [address] | | | | | | [address] | | | | | | Mailcode: [place] | | | | | | for Health and | | | | | | Healing, Building [address] | | | | | | [place], [place] | | | | | | [address] | | | | | | [phone] | | | +--------+ + + + [...]
--- OUTSIDE RECORDS SUMMARY | ~2018-06-30 | XMS | Encounter Summary ---
Demographics + + + | Address | [address] | | | [place] [address] | + + + | Home Phone [...] [facility] | + + + | Organization | [facility] | + + + | Address | Unknown | + + + | Phone | Unavailable | + + + Support + + +---------+ + | Name | Relationship | Address | Phone | + + +---------+ + | Isaias Salas | ECON | Unknown | | + + +---------+ + Care Team Providers + +------+ + | Care Special Forces Engineer Sergeant Name | Role | Phone | + [...] [address] | | | | | | [facility] | | | | | | Mailcode: PV35 | | | | | | Physicians Zack | | | | | | [place], [place] | | | | | | [address] | | | | | | [phone] | | | +--------+ + + + [...]
--- OUTSIDE RECORDS SUMMARY | ~2018-06-30 | XMS | Encounter Summary ---
Demographics + + + | Address | [address] | | | [place] [address] | + + + | Home Phone | | + + + | Preferred Language | Unknown | + + + | Marital Status | | + + + | Buddhism Affiliation | CATRACHITO | + + + | Race | or | + + + | Ethnic Group | Not or | + + + Author + + + | Author | [facility] | + + + | Organization | [facility] | + + + | Address | Unknown | + + + | Phone | Unavailable | + + + Support + + +---------+ + | Name | Relationship | Address | Phone | + + +---------+ + | Isaias Salas | ECON | Unknown | | + + +---------+ + Care Team Providers + +------+ + | Care Orchestra Teacher Name | Role | Phone | + +------+ + | No Pcp Per Patient | PCP | Unavailable | + +------+ + Encounter Details +--------+ + + + + | Date | Type | Department | Care Team | Description | +--------+ + + + + | 07/06/ | Abstract | Digestive Health | Clinic, Surgery | | | 2011 | | [place] at [facility] [address] | | | | | | [address] | | | | | | Mailcode: [place] | | | | | | for Health and | | | | | | Healing, [address] | | | | | | [place], [place] | | | | | | [address] | | | | | | [phone] | | | +--------+ + + + [...]
--- OUTSIDE RECORDS SUMMARY | ~2018-06-30 | XMS | Encounter Summary ---
Demographics + + + | Address | [address] | | | [place] [address] | + + + | Home Phone [...] + + + | Author | [facility] | + + + | Organization | [facility] | + + + | Address | Unknown | + + + | Phone | Unavailable | + + + Support + + +---------+ + | Name | Relationship | Address | Phone | + + +---------+ + | Isaias Salas | ECON | Unknown | | + + +---------+ + Care Team Providers + +------+ + | Care Recruitment Internship Name | Role | Phone | + +------+ + | Jairon Siegel | PCP | | + +------+ + Reason for Visit + + + | Reason | Comments | + + + | Medical Records | [facility] - OUTSIDE RECORD: Chart note [...] [address] | [address] | Review ([facility] | | | | [address] | [place], [place] | OUTSIDE RECORD: | | | | Mailcode: [place] | [address] | Chart note | | | | for Health and | [phone] | 11/25/2013) | | | | [facility] [address] | | | | | | [place], [place] | | | | | | [address] | | | | | | [phone] | | | +--------+ + + + [...]
--- OUTSIDE RECORDS SUMMARY | ~2018-06-30 | XMS | Encounter Summary ---
Demographics + + + | Address | [address] | | | [place] [address] | + + + | Home Phone | | + + + | Preferred Language | Unknown | + + + | Marital Status | | + + + | Sikhism Affiliation | CATRACHITO | + + + | Race | or | + + + | Ethnic Group | Not or | + + + Author + + + | Author | [facility] | + + + | Organization | [facility] [...] Team Providers + +------+ + | Care Appliance Service Supervisor Name | Role | Phone [...] Karlo | | | | | | [facility] | | | | | | Mailcode: PV35 | | | | | | [place] | | | | | | [place], [place] | | | | | | [address] | | | | | | [phone] | | | +--------+---------+ + + + [...] note. DM HALEY MD (ATUL) RHEUMATOLOGY FACULTY [address] [place] [address] [id number] Lorena Nieto MD - 04/20/2009 10:41 AM PST RHEUMATOLOGY NEW PATIENT CONSULT This consultation was requested by: LYLE MYERS [facility] [address] [place] [address] fax: [phone] CC: Chief Complaint Patient presents with New patient consultation HPI: This is a 59 y.o. female, here for consultation from Lyle Myers MD regarding diagnosis of Rheumatoid Arthritis. Was diagnosed with RA in 1997 by Auxiliary Equipment Tender. Was treated with methotrexate up to 7 tabs and told to decrease to 6 tabs due to bloodtests. Has had pain in hands, knees, feet. Was n ever on sulfasalazine or hydroxychloroquine. Patient was more recently seen by Dr Henderson in [facility]. At one point was diagnosed with Fibromyalgia. Was on Enbrel in 2007 and she tells me she did not notice change but was told to keep taking it. Still had swelling during year she was on it. Had problems with insurance and so no longer taking it for over a year. Curr ently taking celebrex. In anticipation of visit to [facility] clinic in [place] star brennen methotrexate 6 tabs in 03/01 [...] rheumatology notes do not note synovitis (only AUTOMOTIVE PRODUCTION WORKER note). Reports she had bloodclot in her [...] toid Arthritis dx in 1997, presented to [facility] in 2009. She has [...] LORENA VALERIO MD RHEUMATOLOGY FELLOWS [address] [facility] Mailcode: Pv35 [facility] [place] [address] documented in this e ncounter Plan of [...] | + + + + + | [facility] | [address] | [place] [address] | | | LAB-MICRO | | | [...] + + + | Duplicate order. | [facility] | | | DEPARTMENT OF | | | PATHOLOGY | + + + + + + + + | Performing | Address | City/State/Zipcode | Phone Number | | Organization | | | | + + + + + | [facility] DEPARTMENT OF | [address] | [place] [address] | | | PATHOLOGY | [address] [...] | + + + + + | [facility] DEPARTMENT OF | [address] | [place] [address] | | | PATHOLOGY | [address] [...] + + + + | RBC | [address] | /cu mm | [facility] | | [...] | + + + + + | [facility] | [address] | [place] [address] | | | PATHOLOGY | [address] | | | + + + + + documented in this encounter Visit Diagnoses + + | Diagnosis | + + | Arthralgia - Primary Pain in joint, site unspecified | + + documented in this encounter"
--- OUTSIDE RECORDS SUMMARY | ~2018-06-30 | XMS | Encounter Summary ---
Demographics + + + | Address | [address] | | | [place] [address] | + + + | Home Phone [...] [facility] | + + + | Organization | [facility] [...] Team Providers + +------+ + | Care Physician Office Clin Asst Name | Role | Phone | [...] | | 2012 | | Center at [facility] [address] | [address] | pre surgical | | | | [address] | [place], [place] | anesthesia | | | | Mailcode: [place] | [address] | evaluation) | | | | for [facility] and | [phone] | | | | | [place] [address] | | | | | | [place], [place] | | | | | | [address] | | | | | | [phone] | | | +--------+ + + + [...]
--- OUTSIDE RECORDS SUMMARY | ~2018-06-30 | XMS | Encounter Summary ---
Demographics + + + | Address | [address] | | | [place] [address] | + + + | Home Phone | | + + + | Preferred Language | Unknown | + + + | Marital Status | | + + + | Episcopalian Affiliation | CATRACHITO | + + + | Race | or | + + + | Ethnic Group | Not or | + + + Author + + + | Author | [facility] | + + + | Organization | [facility] [...] Team Providers + +------+ + | Care Button Spindler Name | Role | Phone | + [...] | | | [address] | [place], [place] | | | | | Mailcode: Center | [address] | | | | | for Health and | [phone] | | | | | [facility] [address] | | | | | | [place], [place] | | | | | | [address] | | | | | | [phone] | | | +--------+ + + + [...]
--- OUTSIDE RECORDS SUMMARY | ~2018-06-30 | XMS | Encounter Summary ---
Demographics + + + | Address | [address] | | | [place] [address] | + + + | Home Phone | | + + + | Preferred Language | Unknown | + + + | Marital Status | | + + + | Mosque Affiliation | CATRACHITO | + + + | Race | or | + + + | Ethnic Group | Not or | + + + Author + + + | Author | [facility] | + + + | Organization | [facility] [...] Team Providers + +------+ + | Care Track Repairer Name | Role | Phone | + [...] Dietrich | | | | | | [facility] | | | | | | Mailcode: PV35 | | | | | | Physicians Zack | | | | | | [place], [place] | | | | | | [address] | | | | | | [phone] | | | +--------+ + + + [...]
--- OUTSIDE RECORDS SUMMARY | ~2018-06-30 | XMS | Encounter Summary ---
Demographics + + + | Address | [address] | | | [place] [address] | + + + | Home Phone [...] + + + | Author | [facility] | + + + | Organization | [facility] | + + [...] Providers + +------+ + | Care Administrative Medical Director Name | Role | Phone | + [...] | | Karlo Bran | [address] [place], | | | | | Road Mailcode: CH6A | [place] [address] | | | | | [place], [place] | | | | | | [address] | | | | | | [phone] | | | +--------+ + + + [...]
--- OUTSIDE RECORDS SUMMARY | ~2018-06-30 | XMS | Encounter Summary ---
Demographics + + + | Address | [address] | | | [place] [address] | + + + | Home Phone | | + + + | Preferred Language | Unknown | + + + | Marital Status | | + + + | Nondenominational Affiliation | CATRACHITO | + + + | Race | or | + + + | Ethnic Group | Not or | + + + Author + + + | Author | [facility] | + + + | Organization | [facility] | [...] Team Providers + +------+ + | Care Small Equipment Operator Name | Role | Phone [...] [place] | | | | | | [place], [place] | | | | | | [address] | | | | | | [phone] | | | +--------+ + + + [...]
[~2018-06-30 15:28] MED LIST changes: +MEDROL4 M1 PO; +PROVENTIL HFA6.7 GM INH; +ZITHROMAX250 MG PO
--- OUTSIDE RECORDS SUMMARY | 2018-06-30 15:32 | XMS ---
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 Franco VISIT COUNT (12 MO.) 2 [facility] [place] TOTAL 2 NOTE: Visits indicate total known visits. 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
[2018-06-30] MEDS ORDERED: CLINDAMYCIN HC300 MG PO (16:46)
[2018-06-30] MEDS ORDERED: LASIX20 MG PO (16:46)
== END 2018-06-30 17:00 | disposition home or self-care (01) ==
LOC: ED 15:28
DX: S80.812A Abrasion, left lower leg, initial encounter (principal); R60.0 Localized edema; E03.9 Hypothyroidism, unspecified; F17.200 Nicotine dependence, unspecified, uncomplicated; Z88.0 Allergy status to penicillin; Z85.41 Personal history of malignant neoplasm of cervix uteri; Z88.6 Allergy status to analgesic agent; Z88.5 Allergy status to narcotic agent; Z88.8 Allergy status to other drugs, medicaments and biological substances; X58.XXXA Exposure to other specified factors, initial encounter
CPT/HCPCS: 80048; 83880; 99283

== ENCOUNTER 2019-09-06 22:34 | Emergency (ER) | payer MEDICARE, OTHER ==
[~2019-09-06] VITALS: Ht 165.1 cm; Wt 87.1 kg
--- OUTSIDE RECORDS SUMMARY | ~2019-09-06 | XMS | Encounter Summary ---
Demographics + + + | Address | [address] | | | [place] [address] | + + + | Home Phone | | + + + | Preferred Language | Unknown | + + + | Marital Status | | + + + | Shinto Affiliation | CATRACHITO | + + + | Race | or | + + + | Ethnic Group | Not or | + + + Author + + + | Author | [facility] | + + + | Organization | [facility] | + + + | Address | Unknown | + + + | Phone | Unavailable | + + + Support + + +---------+ + | Name | Relationship | Address | Phone | + + +---------+ + | Isaias Salas | ECON | Unknown | | + + +---------+ + Care Team Providers + +------+ + | Care Oyster Farmer Name | Role | Phone | + [...] 01/18/ | Office | Rheumatology at | Marianopriya Ihsan Sofía, | ERRONEOUS ENCOUNTER | | 2009 | Visit | Physicians Zack Huynh MD | - NO DIAGNOSIS | | | | [address] | | (Primary Dx) | | | | Loop Physician's | | | | | | [address], [address] Floor | | | | | | [place], [place] | | | | | | [address] | | | | | | [phone] | | | +--------+---------+ + + + [...] + documented as of this encounter Progress Notes Ihsan Winters MD - 12/24/2009 4:02 PM PDTPatient did [...]
--- OUTSIDE RECORDS SUMMARY | ~2019-09-06 | XMS | Encounter Summary ---
Demographics + + + | Address | [address] | | | [place] [address] | + + + | Home Phone | | + + + | Preferred Language | Unknown | + + + | Marital Status | | + + + | Scientology Affiliation | CATRACHITO | + + + | Race | or | + + + | Ethnic Group | Not or | + + + Author + + + | Author | [facility] | + + + | Organization | [facility] | + + + | Address | Unknown | + + + | Phone | Unavailable | + + + Support + + +---------+ + | Name | Relationship | Address | Phone | + + +---------+ + | Isaias Salas | ECON | Unknown | | + + +---------+ + Care Team Providers + +------+ + | Care Freight Air Brake Fitter Name | Role | Phone | + +------+ + | Jairon Siegel | PCP | | + +------+ + Encounter Details +--------+ + + + + | Date | Type | Department | Care Team | Description | +--------+ + + + + | 09/18/ | Abstract | [facility] | Lucille De La Rosa, | | | 2012 | | Center at [address] | MD [address] | | | | | [address] [place] | [place], [place] | | | | | for Health and | [address] | | | | | Healing, [address] | [phone] | | | | | [place], [place] | | | | | | [address] | | | | | | [phone] | | | +--------+ + + + [...]
--- OUTSIDE RECORDS SUMMARY | ~2019-09-06 | XMS | Encounter Summary ---
Demographics + + + | Address | [address] | | | [place] [address] | + + + | Home Phone | | + + + | Preferred Language | Unknown | + + + | Marital Status | | + + + | Yarsanism Affiliation | CATRACHITO | + + + | Race | or | + + + | Ethnic Group | Not or | + + + Author + + + | Author | [facility] | + + + | Organization | [facility] | + + + | Address | Unknown | + + + | Phone | Unavailable | + + + Support + + +---------+ + | Name | Relationship | Address | Phone | + + +---------+ + | Isaias Salas | ECON | Unknown | | + + +---------+ + Care Team Providers + +------+ + | Care Painting And Coating Worker Name | Role | Phone | + +------+ + | Jairon Siegel | PCP | | + +------+ + Reason for Referral PROC - Outpatient Surgery (Routine) +--------+--------+ + + + + | Status | Reason | Specialty | Diagnoses / | Referred By | Referred To | | | | | Procedures | Contact | Contact | +--------+--------+ + + + + | Closed | | Surgery | Diagnoses | Yael, | Rj, | | | | | Recurrent | Jona Weems MD | Lucille Taylor MD | | | | | ventral | [address] | [address] | | | | | incisional | [place] | [place] | | | | | hernia | [address] | [facility] [place] | | | | | Procedures | [address] | [address] | | | | | REQUEST TO | [place] | Phone: | | | | | SURGERY | [address] | [phone] | | | | | STAFF DEVELOPMENT EDUCATOR | [place], [place] | Fax: | | | | | ID REPAIR | [address] | [phone] | | | | | RECURR INCIS | | | | | | | | | | | | | | HERNIA,REDUC | | | | | | | ID REPAIR | | | | | | | INCIS HERNIA | | | | | | | W MESH ID | | | | | | | MUSCLE-SKIN | | | | | | | FLAP,TRUNK | | | +--------+--------+ + + + + Reason for Visit + + + | Reason | Comments | + + + | New Patient Visit | | + + + Consultation (Routine) +--------+ + + + + + | Status | Reason | Specialty | Diagnoses / | Referred By | Referred To | | | | | Procedures | Contact | Contact | +--------+ + + + + + | Closed | Specialty | Surgery | Diagnoses | Jorge, | Rj, | | | Services | | Incisional | Hayden Esquivel MD | Lucille Taylor MD | | | Required | | hernia | [place] | [address] | | | | | without | SURGICAL | Ave | | | | | mention of | [facility] [address] | [place], [place] | | | | | obstruction | [address] | [address] | | | | | or gangrene | AVE | Phone: | | | | | Procedures | [place], | [phone] | | | | | CONSULT TO | [place] [address] | Fax: | | | | | GENERAL | Phone: | [phone] | | | | | SURGERY | [phone] | | | | | | | Fax: | | | | | | | [phone] | | +--------+ + + + + + Encounter Details +--------+---------+ + + + | Date | Type | Department | Care Team | Description | +--------+---------+ + + + | 12/06/ | Office | Digestive Health | Lucille De La Rosa, | Incisional hernia | | 2011 | Visit | Center at [facility] [address] | MD [address] | (Primary Dx) | | | [address] | [place], [place] | | | | | for Health and | [address] | | | | | [facility] 2 | [phone] | | | | | [place], [place] | | | | | | [address] | | | | | | [phone] | | | +--------+---------+ + + + [...] + + documented as of this encounter Last Filed Vital Signs + + + + + | Vital Sign | Reading | Time Taken | Comments | + + + + + | Blood Pressure | 123/62 | 12/07/2011 9:39 AM | | | | | PDT | | + + + + + | Pulse | 65 | 12/07/2011 9:39 AM | | | | | PDT | | + + + + + | Temperature | 36.6 C (97.8 F) | 12/07/2011 9:39 AM | | | | | PDT | | + + + + + | Respiratory Rate | 16 | 12/07/2011 9:39 AM | | | | | PDT | | + + + + + | Oxygen Saturation | - | - | | + + + + + | Inhaled Oxygen | - | - | | | Concentration | | | | + + + + + | Weight | 86.5 kg (190 lb 9.6 | 12/07/2011 9:39 AM | | | | oz) | PDT | | + + + + + | Height | 162.6 cm (5' 4") | 12/07/2011 9:39 AM | | | | | PDT | | + + + + + | Body Mass Index | 32.72 | 12/07/2011 9:39 AM | | | | | PDT | | + + + + + documented in this encounter Patient Instructions Patient Instructions Elaine Garcia RN - 12/07/2011 10:56 AM PDTEPICSPINPTPREOPINSTRUCTIONSP [facility] SURGERY INFORMATION [facility] General Surgery Office Toll-free: [phone] Surgery Date: December 29, 2011 Procedure: Open incisional hernia repair with mesh, laparoscopic component separation Surgeon Name: Lucille De La Rosa DIRECTIONS FOR SURGERY DIET Nothing to eat or drink after midnight on the night prior to surgery. Your doctor will ins truct you on what medications to take the morning of surgery. Please note: Some surgeries may require additional dietary restrictions or a bowel preparation. Your meléndez rgical team will give you additional printed instructions should these be necessary. MEDICATIONS Unless otherwise directed by your provider, do not take any Aspirin, vitamin E or non-stero idal anti-inflammatory (NSAIDs i.e. Advil, Aleve, Ibuprofen) or herbal supplements seven day s prior to your surgery. These drugs may interfere with normal blood clotting and may cause excessive bleeding and bruising during or after the surgery. Please see the list below, [facility] has a list of products that contain Aspirin, Ibuprofen, or Vitamin E If you are taking Coumadin (warfarin), Plavix or any other blood thinners please let your s urgical team know as medication changes will be necessary. If you need a pain medication for general purposes, use Tylenol as directed. If you are in doubt about any medications that you are taking, please contact our office. PRE-OP BATHING/SHOWERING - HIBICLENS (Chlorhexidine Gluconate) Bath or shower the evening before and the morning of your surgery Use the bottle of Hibiclense soap for the evening cleansing and the bottle in the mor saturnino Wash from your neck to your toes. BE CAREFUL NOT TO WASH YOUR FACE OR HAIR WITH THIS SOLU TION After your shower or bath do not apply lotions, powders, or deoderant SMOKING You should not smoke for four weeks prior to the procedure and two weeks after the procedur e. If you are a smoker, please speak with your provider. Smoking can significantly affect the outcome of your procedure. Smoking near the time of meléndez rgery causes a more acute narrowing of the blood vessels, which may lead to decreased blood flow to the tissue, poor healing, bad scars, or actual loss of tissue. WHEN TO ARRIVE Check-in times for Hospital Admissions are not available until the day prior to surgery. S mahadone will contact you with your check in time. If you do not hear from anyone by 3:00 PM please call the General Surgery Office at [phone] for [id number]. PARKING Parking for patients and visitors is available in the [facility] Parking structure located across from the emergency department. Patient parking is available on level 1 and 3. Mete red parking is available on the top level. CHECKING IN FOR SURGERY For Hospital Admission (in-patient) you will check in on the day of surgery at the Admittin g Department located on the 9th floor of [facility] TRANSPORTATION You will require transportation home on the day of discharge. Pain medications and physica l activity restrictions may limit your ability to drive safely. CANCELLING YOUR PROCEDURE Please notify the general surgery office at [phone] as soon as possible should you nee d to cancel or change your surgery date. We will attempt to reschedule your procedure in a timely manner however due to a limited amount of operating room time a waiting list is not u ncommon. ILLNESS Please call our office with any signs of illness such as cold, flu, infection, fever, or s kin rash/infection anytime prior to your surgery. PRODUCTS CONTAINING ASPIRIN Bozena-Volin, Anacin, Anexsia with Codeine, Andynos, Aspirin, Aspirin suppositories, Ascrip tin, Aspergum, Axotal, B-A-C, Baby Aspirin, Piotr, BC Powder, Bexophene, Buffaprin, Bufferin , Buffinol, Cama-Arthritis Strength, Congespirin, [place], Coricidin, Damason, Darvon, Dristan, Isadora-Gesic, Digel, Dolprin #3 Tablets, Donatab, Doxaphene, Duragesic, Easprin, Ecotrin, Emag rin Forte, Emiprin, Emprazil, Equagesic, Equazine M, Excedrin, Fiogesic, Fiorgen PH, Fiorice t, Fiorinal, 4-Way Cold Tablet Gemnisyn, Indocin, Liquprin, Lortab ASA, Magnaprin, Marnal, Meprobamate, Midol, Momentum, N orgesic, Electra, Orphengesic, Pabalate, P-A-C, Percodan, Presalin, Robaxasil, Roxiprin, Trey eto, Salocol SK-65 Compound, Sine-Aid, Sine-Off,, [place], Supac, Talwin Compound, Trigesic, Tolectin , Traiminicin, Vanquish, ZORprin, Zomax PRODUCTS CONTAINING IBUPROFEN Advil, Aleve, Haltran, Medipren, Midol, Motrin, Naproxyn, Nuprin, Rufen OTHER PRODUCTS WHICH MAY PROMOTE BLEEDING Vitamin E, Gingko Biloba, Marine Fatty Acids, Derby-3 Fish Oil Supplements documented in this encounter Progress Notes Lucille De La Rosa MD - 12/08/2011 1:05 PM PDTI saw and evaluated the patient. I agree with the findings and the plan of care as documented in the resident s note. MD LUCILLE Dumont MD [facility] CENTER [facility] Mailcode: [place] [address] Jona Davis MD - 12/07/2011 10:56 AM PDT GENERAL SURGERY HISTORY AND PHYSICAL Attending Physician: Lucille De La Rosa MD Author: Jona Conley MD; MIS/Bariatric Fellow CC: Recurrent incisional hernia HPI: Trudy Salas is a 61 y.o. female who has a recurrent incisional hernia for the second time, s/p multiple abdominal surgeries stemming from a perforated Meckel's diverticu lum. She has had a recent small bowel obstruction in September 2011, has chronic abdominal pain , weight loss and occasional anorexia. See surgical history below for details. She is able t o walk only a block from fatigue, SOB and orthopedic issues, has some calf pain during ambul ation, and claims cannot walk a flight of stairs without difficulty. She is referred to [facility] for possible component separation and repair of her recurrent incisional hernia. PAST MEDICAL HISTORY Past Medical History Diagnosis Date Meckel's diverticulum perforation 03/2008 Rheumatoid arthritis Hemorrhoids Lordosis Hypokalemia Cholecystitis UTI (urinary tract infection) 09/2011 Chronic diarrhea Tobacco abuse Small bowel obstruction 09/2011 Conservative management PAST SURGICAL HISTORY: Past Surgical History Procedure Date Pr removal gallbladder Pr total knee arthroplasty Right knee, 08/28 Small bowel resection 03/2008 SBR for perforated Meckel's diverticulum Total knee arthroplasty 07/2008 Right Right colectomy 09/2008 for phlegmon s/p SBR for perf Meckel's Incisional hernia repair w/mesh 08/2009 Composix 10x14 inches Incisional hernia repair w/mesh 04/2011 Recurrence CURRENT MEDICATIONS: Current Inpatient Medications Medication hydrocodone-acetaminophen (VICODIN) 5-500 mg Oral Tablet methotrexate 2.5 mg Oral Tablet potassium chloride 20 mEq Oral Packet ALLERGIES: Allergies Allergen Reactions Ibuprofen Penicillin G Robaxin (Methocarbamol) SOCIAL HISTORY: History Social History Marital Status: Spouse Name: N/A Number of Children: N/A Years of Education: N/A Occupational History Not on file. Social History Main Topics Smoking status: Current Some Day Smoker Smokeless tobacco: Not on file Alcohol Use: No Drug Use: No Sexually Active: Not on file Other Topics Concern Not on file Social History Narrative No narrative on file FAMILY HISTORY: Non-contributory REVIEW OF SYSTEMS: Gen - Negative for fevers/chills HEENT- Negative for changes in vision CV - Negative for chest pain, dysrhythmia Pulm - Negative for SOB, but positive for SUTTON GI - Negative for nausea or vomiting. Chronic constipation. Has had cholecystectomy - Negative for dysuria. H/o UTI Heme/Lymph - Negative for night sweats. Derm - Negative for erythema Endo - Negative for history of diabetes Psych - Negative for depression, anxiety PHYSICAL EXAM: Vital signs: Ht 162.6 cm (5' 4")( < 3 %ile), Wt 86.456 kg (190 lbs 9.6 oz)( < 3 %ile), BP 1 23/62, Pulse 65, Temperature 36.6 C (97.8 F), Temperature source Oral, RR 16, BMI 32.72 kg/(m^2). Gen: NAD Neuro: CN II-XII grossly intact, no sensorimotor deficits. HEENT: PERRL, EOMI, MMM, fair dentition. Neck: Trachea midline, no JVD CV: RRR, no M/R/G Pulm: Minor rales, bilaterally. Unlabored with normal inspiratory effort GI: S, TTP incisionally, overt midline defect at least 8x12cm, indistinct fascial borders, no overt incarcerated bowel, no rebound tenderness, no peritoneal sx. Midline incision well- healed. MSk: FROM x4 extr. Skin: cdi Psych: answers questions appropriately normal affect Derm: No lesions identified Psych: Mood and affect appropriate for situation. Vasc: 2+ pulses B-radially. Extr: 1+ pitting edema BLE IMAGING: Reports reviewed, images not seen. ASSESSMENT AND PLAN: Trudy Salas is a 61 y.o. female w/ recurrent incisional herni a. 1. Plan for open repair w/ mesh, possible mesh removal and laparoscopic component separatio n. 2. Smoking cessation counseling given. 3. Obtain outside hospital CT images to look at September 2011 SBO. 4. Pre-op anesthesia. Dr. De La Rosa has personally interviewed and examined the patient, and concurs with the asses sment, exam and plan. Jona Conley MD MIS/Bariatric Fellow, Pager [phone] [facility] Attending provider: Lucille De La Rosa MD documented in this en counter Plan of Treatment + +------+--------+ + + | Name | Type | Priori | Associated Diagnoses | Order Schedule | | | | ty | | | + +------+--------+ + + | 12 LEAD ECG | ECG | Routin | Incisional hernia | Ordered: 12/07/2011 | | | | e | | | + +------+--------+ + + documented as of this encounter Visit Diagnoses + + | Diagnosis | + + | Incisional hernia - Primary Incisional hernia without mention of obstruction or | | gangrene | + + documented in this encounter
--- OUTSIDE RECORDS SUMMARY | ~2019-09-06 | XMS | Encounter Summary ---
Demographics + + + | Address | [address] | | | [place] [address] | + + + | Home Phone | | + + + | Preferred Language | Unknown | + + + | Marital Status | | + + + | Restoration Affiliation | CATRACHITO | + + + | Race | or | + + + | Ethnic Group | Not or | + + + Author + + + | Author | [facility] | + + + | Organization | [facility] | + + + | Address | Unknown | + + + | Phone | Unavailable | + + + Support + + +---------+ + | Name | Relationship | Address | Phone | + + +---------+ + | Isaias Salas | ECON | Unknown | | + + +---------+ + Care Team Providers + +------+ + | Care Ux Research Associate Name | Role | Phone | + +------+ + | Jairon Siegel | PCP | | + +------+ + Reason for Visit + + + | Reason | Comments | + + + | Medical Records | | | Review | | + + + Encounter Details +--------+ + + + + | Date | Type | Department | Care Team | Description | +--------+ + + + + | 09/12/ | Abstract | Digestive Health | Lucille De La Rosa, | Medical Records | | 2013 | | Center at [facility] [address] | MD [address] | Review | | | [address] | [place], [place] | | | | | for Health and | [address] | | | | | [facility] 2 | [phone] | | | | | [place], [place] | | | | | | [address] | | | | | | [phone] | | | +--------+ + + + [...]
--- OUTSIDE RECORDS SUMMARY | ~2019-09-06 | XMS | Encounter Summary ---
Demographics + + + | Address | [address] | | | [place] [address] | + + + | Home Phone | | + + + | Preferred Language | Unknown | + + + | Marital Status | | + + + | Moravian Affiliation | CATRACHITO | + + + | Race | or | + + + | Ethnic Group | Not or | + + + Author + + + | Author | [facility] | + + + | Organization | [facility] | + + + | Address | Unknown | + + + | Phone | Unavailable | + + + Support + + +---------+ + | Name | Relationship | Address | Phone | + + +---------+ + | Isaias Salas | ECON | Unknown | | + + +---------+ + Care Team Providers + +------+ + | Care Administrative Services Officer Name | Role | Phone | + [...] Description | +--------+---------+ + + + | 12/24/ | Office | Rheumatology at | MarianopriyaIhsan Sofía, | ERRONEOUS ENCOUNTER | | 2009 | Visit | Physicians Zack Huynh MD | - NO DIAGNOSIS | | | | [address] [place] | | (Primary Dx) | | | | Loop [facility] | | | | | | [address], [address] | | | | | | [place], [place] | | | | | | [address] | | | | | | [phone] | | | +--------+---------+ + + + [...] encounter Progress Notes Ihsan Winters MD - 12/08/2009 10:14 AM PDTPatient did not show for appointment. This e ncounter was opened in error. Please disregard this note. documented in this encounter Plan of Treatment Not on filedocumented as of this encounter Procedures + +--------+ + + + | Procedure Name | Priori | Date/Time | Associated Diagnosis | Comments | | | ty | | | | + +--------+ + + + | LAB REPORTS | | 12/14/2009 | | Results for this | | | | 2:27 PM | | procedure are in the | | | | PDT | | results section. | + +--------+ + + + documented in this encounter Results LAB REPORTS (12/14/2009 2:27 PM PDT) + + + | Narrative | Performed At | + + + | | | + + + + + | Procedure Note | + + | Fanny Pelletier - 12/14/2009 2:27 PM PDT | | | + + documented in this encounter Visit Diagnoses + + | Diagnosis | + + | ERRONEOUS ENCOUNTER - NO DIAGNOSIS - Primary | + + documented in this encounter"
--- OUTSIDE RECORDS SUMMARY | ~2019-09-06 | XMS | Encounter Summary ---
Demographics + + + | Address | [address] | | | [place] [address] | + + + | Home Phone | | + + + | Preferred Language | Unknown | + + + | Marital Status | | + + + | Restoration Affiliation | CATRACHITO | + + + | Race | or | + + + | Ethnic Group | Not or | + + + Author + + + | Author | [facility] | + + + | Organization | [facility] | + + + | Address | Unknown | + + + | Phone | Unavailable | + + + Support + + +---------+ + | Name | Relationship | Address | Phone | + + +---------+ + | Isaias Salas | ECON | Unknown | | + + +---------+ + Care Team Providers + +------+ + | Care Electronic Parts Salesperson Name | Role | Phone | + [...] Description | +--------+---------+ + + + | 09/29/ | Office | Rheumatology at | Lorena Valerio, | ERRONEOUS ENCOUNTER | | 2008 | Visit | Physicians Zack Huynh MD | - NO DIAGNOSIS | | | | [address] [place] | | (Primary Dx) | | | | Loop [facility] | | | | | | [address] | | | | | | [place], [place] | | | | | | [address] | | | | | | [phone] | | | +--------+---------+ + + + [...] + documented as of this encounter Progress Lorena Rodriguez MD - 09/29/2008 10:31 AM PDTPatient did not show for appointment. This e ncounter was opened in error. Please disregard this note. documented in this encounter Plan of Treatment Not on filedocumented as of this encounter Visit Diagnoses + + | Diagnosis | + + | ERRONEOUS ENCOUNTER - NO DIAGNOSIS - Primary | + + documented in this encounter"
--- OUTSIDE RECORDS SUMMARY | ~2019-09-06 | XMS | Encounter Summary ---
Demographics + + + | Address | [address] | | | [place] [address] | + + + | Home Phone | | + + + | Preferred Language | Unknown | + + + | Marital Status | | + + + | Yazidism Affiliation | CATRACHITO | + + + | Race | or | + + + | Ethnic Group | Not or | + + + Author + + + | Author | [facility] | + + + | Organization | [facility] | + + + | Address | Unknown | + + + | Phone | Unavailable | + + + Support + + +---------+ + | Name | Relationship | Address | Phone | + + +---------+ + | Isaias Salas | ECON | Unknown | | + + +---------+ + Care Team Providers + +------+ + | Care Industrial Controls Technician Name | Role | Phone | + [...] | Documentati | Rheumatology at | Yolanda Cotnreras, | Test Results | | 2010 | on | Physicians Zack | | | | | | [address] | | | | | | [facility] | | | | | | [address] | | | | | | [place], [place] | | | | | | [address] | | | | | | [phone] | | | +--------+ + + + [...]
--- OUTSIDE RECORDS SUMMARY | ~2019-09-06 | XMS | Encounter Summary ---
Demographics + + + | Address | [address] | | | [place] [address] | + + + | Home Phone | | + + + | Preferred Language | Unknown | + + + | Marital Status | | + + + | Yarsanism Affiliation | CATRACHITO | + + + | Race | or | + + + | Ethnic Group | Not or | + + + Author + + + | Author | [facility] | + + + | Organization | [facility] Team Providers + +------+ + | Care Disk Recoater Name | Role | Phone | + +------+ + | No Pcp Per Patient | PCP | Unavailable | + +------+ + Encounter Details +--------+ + + + + | Date | Type | Department | Care Team | Description | +--------+ + + + + | 11/17/ | Abstract | Digestive Health | Clinic, Surgery | | | 2011 | | [place] [address] [address] | | | | | | [facility] | | | | | | for Health and | | | | | | Healing, [address] | | | | | | [place], [place] | | | | | | [address] | | | | | | [phone] | | | +--------+ + + + [...]
--- OUTSIDE RECORDS SUMMARY | ~2019-09-06 | XMS | Encounter Summary ---
Demographics + + + | Address | [address] | | | [place] [address] | + + + | Home Phone | | + + + | Preferred Language | Unknown | + + + | Marital Status | | + + + | Taoist Affiliation | CATRACHITO | + + + | Race | or | + + + | Ethnic Group | Not or | + + + Author + + + | Author | [facility] | + + + | Organization | [facility] | + + + | Address | Unknown | + + + | Phone | Unavailable | + + + Support + + +---------+ + | Name | Relationship | Address | Phone | + + +---------+ + | Isaias Salas | ECON | Unknown | | + + +---------+ + Care Team Providers + +------+ + | Care Tire Installer Name | Role | Phone | + [...] Zack | | | | | | [address] | | | | | | [facility] | | | | | | [address] | | | | | | [place], [place] | | | | | | [address] | | | | | | [phone] | | | +--------+ + + + [...]
--- OUTSIDE RECORDS SUMMARY | ~2019-09-06 | XMS | Encounter Summary ---
Demographics + + + | Address | [address] | | | [place] [address] | + + + | Home Phone | | + + + | Preferred Language | Unknown | + + + | Marital Status | | + + + | Mu-Ism Affiliation | CATRACHITO | + + + | Race | or | + + + | Ethnic Group | Not or | + + + Author + + + | Author | [facility] | + + + | Organization | [facility] | + + + | Address | Unknown | + + + | Phone | Unavailable | + + + Support + + +---------+ + | Name | Relationship | Address | Phone | + + +---------+ + | Isaias Ryan | ECON | Unknown | | + + +---------+ + Care Team Providers + +------+ + | Care Transportation Maintenance Specialist Name | Role | Phone | + +------+ + | Jairon Siegel | PCP | | + +------+ + Reason for Referral Consultation (Routine) +--------+--------+ + + + + | Status | Reason | Specialty | Diagnoses / | Referred By | Referred To | | | | | Procedures | Contact | Contact | +--------+--------+ + + + + | Closed | | Gastroenterol | Diagnoses | Smith Padilla | Jenny Faculty | | | | ogy | Diarrhea | MD [address] | [facility] [address] | | | | | Bloody | Karlo Dyer | [address] | | | | | diarrhea | [address] | Center for | | | | | Abdominal | [place], [place] | Health and | | | | | pain | [address] | Healing, | | | | | Procedures | Phone: | Building [address] | | | | | CONSULT TO | [phone] | [place], [place] | | | | | GASTROENTERO | Fax: | [address] | | | | | LOGY | [phone] | Phone: | | | | | | | [phone] | | | | | | | Fax: | | | | | | | [phone] | +--------+--------+ + + + + Reason for Visit + + + | Reason | Comments | + + + | Follow-up visit | | + + + Benefits Check (Routine) +--------+--------+ + + + + | Status | Reason | Specialty | Diagnoses / | Referred By | Referred To | | | | | Procedures | Contact | Contact | +--------+--------+ + + + + | Closed | | Surgery | | Non-[facility] | [facility] | | | | | | Epic Dept | Surg [facility] | | | | | | | [address] | | | | | | | [address] Center | | | | | | | for Health | | | | | | | and Healing, | | | | | | | [address] | | | | | | | [place], [place] | | | | | | | [address] | | | | | | | Phone: | | | | | | | [phone] | | | | | | | Fax: | | | | | | | [phone] | +--------+--------+ + + + + Encounter Details +--------+---------+ + + + | Date | Type | Department | Care Team | Description | +--------+---------+ + + + | 09/23/ | Office | Digestive Health | Lucille De La Rosa, | Diarrhea (Primary | | 2013 | Visit | Center at [facility] [address] | MD [address] | Dx); Bloody | | | | [address] | [place], [place] | diarrhea; Abdominal | | | | for Health and | [address] | pain | | | | Healing, [address] | [phone] | | | | | [place], [place] | | | | | | [address] | | | | | | [phone] | | | +--------+---------+ + + + Social History + + [...] + + + | Blood Pressure | 114/66 | 09/23/2013 1:23 PM | | | | | PDT | | + + + + + | Pulse | 69 | 09/23/2013 1:23 PM | | | | | PDT | | + + + + + | Temperature | 37.1 C (98.7 F) | 09/23/2013 1:23 PM | | | | | PDT | | + + + + + | Respiratory Rate | 19 | 09/23/2013 1:23 PM | | | | | PDT | | + + + + + | Oxygen Saturation | - | - | | + + + + + | Inhaled Oxygen | - | - | | | Concentration | | | | + + + + + | Weight | 77.4 kg (170 lb 11.2 | 09/23/2013 1:23 PM | | | | oz) | PDT | | + + + + + | Height | 163.8 cm (5' 4.5") | 09/23/2013 1:23 PM | | | | | PDT | | + + + + + | Body Mass Index | 28.85 | 09/23/2013 1:23 PM | | | | | PDT | | + + + + + documented in this encounter Progress Notes Lucille De La Rosa MD - 09/24/2013 1:53 PM PDTFormatting of this note might be different fro m the original. BLUE SURGERY CLINIC NOTE FOLLOW UP VISIT Date: 09/23/2013 ID: Trudy Ryan is a 63 y.o. female with a reported history of perforated meckels or a ppendix in 2008 with small bowel resection followed by right colectomy for phlegmon. Recover y complicated by incisional hernia repaired twice, most recently with BARD composix mesh wit h midline bulge her to discuss hernia repair. HPI: Ms. Ryan was seen by [facility]'s ED in [facility], [place] 2 weeks ago for severe abdominal nancy n and sweating. Per abdominal x-ray report there was no free air, gas throughout colon and n o obstruction she was referred to Dr. De La Rosa for evaluation of hernia. In clinic today, she reports new symptoms of BRBPR with some clots in toilet bowl with bowel movement yesterday. She has a history of internal hemorrhoids that are slightly more painful but no acute oliveira es. She reports bowel movements as diarrhea which she has had "forever" with liquid stools a fter every meal, often 3-4 times a day. She takes metamucil occasionally. She reports abdomi nal pain localized to hernia site in lower abdomen with some nausea. Currently taking hydroc odone-acetaminophen for pain contorol. She also had an episode of urinary incontinence preci pitated by abdominal pain in the last week. Her last colonoscopy was in 2011 at [facility] with Dr. Patel for similar complaints of BRBPR. She is unsure of results or follow-up schedu le. Previous normal colonoscopy in 2009 showing only internal hemorrhoids. PMHx of cholecyst ectomy, rheumatoid arthritis- not taking meds for this, osteoporosis and small bowel diverti culitis in 11/2011 treated with bowel rest and antibiotics. She has no history of HTN, DM2 o r HLD. Ms. Ryan continues to smoke daily although now it is only 1-2 cigarettes/day. She d enies any alcohol use. ROS: Gen: has lost weight which she feels in related to eating less, no fevers or night sweats HEENT: decreased vision in right eye due to catarcts GI: See HPI Neuro: Weakness of legs and arms. Otherwise negative on 13 pt review. Current outpatient prescriptions: DULOXETINE HCL (CYMBALTA ORAL), Take by mouth., Disp: , Rfl: HYDROcodone-acetaminophen 5-325 mg Oral tablet, Take 1-2 Tabs by mouth every six hours as n eeded (for pain.). Not to exceed 10 tablets per any 24 hour period. (Not to exceed 3250 mg o f acetaminophen from all products per 24 hour period.), Disp: 30 Tab, Rfl: 0 POTASSIUM ORAL, Take by mouth., Disp: , Rfl: Sennosides (SENNA) 8.6 mg Oral capsule, Take 1 Cap by mouth two times daily., Disp: 30 Cap, Rfl: 1 Allergies Allergen Reactions Ibuprofen Penicillin G Robaxin [Methocarbamol] Past Medical History Diagnosis Date Meckel's diverticulum perforation 03/2008 Rheumatoid arthritis(714.0) Hemorrhoids Lordosis Hypokalemia Cholecystitis Chronic diarrhea Tobacco abuse Small bowel obstruction 09/2011 Conservative management Other general symptoms(780.99) GERD (gastroesophageal reflux disease) Depressive disorder, not elsewhere classified High risk for colon cancer Cervical cancer 12/2010 Diarrhea 09/23/2013 Bloody diarrhea 09/23/2013 Abdominal pain 09/23/2013 Past Surgical History Procedure Laterality Date Pr removal gallbladder Pr total knee arthroplasty Right knee, 08/28 Small bowel resection 03/2008 SBR for perforated Meckel's diverticulum Total knee arthroplasty 07/2008 Right Right colectomy 09/2008 for phlegmon s/p SBR for perf Meckel's Incisional hernia repair w/mesh 08/2009 Composix 10x14 inches Incisional hernia repair w/mesh 04/2011 Recurrence OBJECTIVE: Vital Signs: Last Vitals: BP 114/66 | Pulse 69 | Temp (Src) 37.1 C (98.7 F) (Oral) | RR 19 | Ht 1.63 8 m (5' 4.5") | Wt 77.429 kg (170 lb 11.2 oz) | BMI 28.86 kg/(m^2) Physical Exam: General: Alert and oriented, NAD HEENT: Sclerae anicteric, EOMI Respiratory: Unlabored, CTAB. CV: RRR, no murmurs/rubs/gallops GI: protruberant, soft abdomen with well healed midline incision. Firmness assoc with previ ous mesh placement is palpable in the midline infraumbilically. This area bulges with valsa lva. No fascial defect is appreciated.. Tenderness to palpation. Along lateral abdominal wal l, not peritoneal in nature,no rebound or Rovsing's. Neuro: CN II-XII grossly intact, no obvious neurologic defecits Extremities: Warm and well perfused, no peripheral edema Skin: c/d/i IMAGING 08/13/2013 CT A/P ASSESSMENT and PLAN: Trudy Ryan is a 63 y.o. female with multiple abdominal surgeries complicated by i ncisional hernia repaired with mesh. She complains of lower abdominal pain, diarrhea and ailyn ght red blood per rectum with no current fevers or systemic signs of infection. CT scan from 07/2013 was reviewed today with no distinct defect in mesh visible. Most likely her midline bulge is due to mesh redundancy from bridging technique in placement of mesh. Risks and bene fits of hernia repair revision and mesh revision discussed with patient. Discussed necessity of smoking cessation prior to considering surgery and the likelihood that her complaints of abdominal pain and diarrhea would continue. Patients main complaints are of postprandial abdominal pain, chronic diarrhea and BRBPR not likely related to incisional hernia repair. Recommend that patient see GI specialist for GI work-up and possible colonoscopy. - Referral to GI at [facility] to discuss her functional abdominal pain and chronic diarrhea- 4-5 xs daily. - Recommend starting Metamucil supplementation for chronic diarrhea - Smoking cessation discussed Lucille De La Rosa MD, [facility] Chief Scientist Division of General and Gastrointestinal Surgery Department of Surgery, [place] [address] [place], [place] [id number] [facility] nastsaia Gutierrez - 05/2013 1:25 PM PDT BLUE SURGERY CLINIC NOTE Author: Anastasia Gutierrez, MS4 Date: 09/23/2013 ID: Trudy Ryan is a 63 y.o. female with a reported history of perforated Meckel's div erticulum in 2008 with small bowel resection followed by right colectomy for phlegmon. Recov campos complicated by incisional hernia repaired with composix mesh. PMH of cholecystectomy, rh eumatoid arthritis, osteoporosis and small bowel diverticulitis in 11/2011 treated with israel l rest and antibiotics. HPI: Ms. Ryan was seen by [facility]' ED in [facility], [place] 2 weeks ago for severe abdominal pa in and sweating. Per abdominal x-ray report there was no free air, gas throughout colon and no obstruction she was referred to Dr. De La Rosa for evaluation of hernia. In clinic today, s he reports new symptoms of BRBPR with some clots in toilet bowl with bowel movement yesterda y. She has a history of internal hemorrhoids that are slightly more painful but no acute ch anges. She reports bowel movements as diarrhea which she has had "forever" with liquid stoo ls after every meal, often 3-4 times a day. She takes metamucil occasionally. She reports ab dominal pain localized to hernia site in lower abdomen with some nausea. Currently taking hy drocodone-acetaminophen for pain contorol. She also had an episode of urinary incontinence p recipitated by abdominal pain in the last week. Her last colonoscopy was in 2011 at [facility] with Dr. Patel for similar complaints of BRBPR. She is unsure of results or follow-up s chedule. Previous normal colonoscopy in 2009 showing only internal hemorrhoids. No HTN, DM, HLD. History of rheumatoid arthritis in chart, patient is not currently taking any immunosuppressants. No family history of cancer. Ms. Ryan is a current smoker, smokes 1-2 cigarettes/day. She denies any alcohol use. ROS: Gen: No weight changes, fevers, night sweats HEENT: decreased vision right eye due to catarcts Pulm: No cough, dyspnea, CV: No chest pain, palpitations GI: See HPI : no dysuria, polyuria or hematuria Neuro: Weakness of legs and arms. Current outpatient prescriptions:DULOXETINE HCL (CYMBALTA ORAL), Take by mouth., Disp: , R fl: HYDROcodone-acetaminophen 5-325 mg Oral tablet, Take 1-2 Tabs by mouth every six hours as n eeded (for pain.). Not to exceed 10 tablets per any 24 hour period. (Not to exceed 3250 mg o f acetaminophen from all products per 24 hour period.), Disp: 30 Tab, Rfl: 0 POTASSIUM ORAL, Take by mouth., Disp: , Rfl: Sennosides (SENNA) 8.6 mg Oral capsule, Take 1 Cap by mouth two times daily., Disp: 30 Cap, Rfl: 1 Past Surgical History Procedure Laterality Date Pr removal gallbladder Pr total knee arthroplasty Right knee, 08/28 Small bowel resection 03/2008 SBR for perforated Meckel's diverticulum Total knee arthroplasty 07/2008 Right Right colectomy 09/2008 for phlegmon s/p SBR for perf Meckel's Incisional hernia repair w/mesh 08/2009 Composix 10x14 inches Incisional hernia repair w/mesh 04/2011 Recurrence OBJECTIVE: Vital Signs: Last Vitals: BP 114/66 | Pulse 69 | Temp (Src) 37.1 C (98.7 F) (Oral) | RR 19 | Ht 1.63 8 m (5' 4.5") | Wt 77.429 kg (170 lb 11.2 oz) | BMI 28.86 kg/(m^2) Physical Exam: General: Alert and oriented, NAD HEENT: Sclerae anicteric, EOMI Respiratory: Unlabored, CTAB. CV: RRR, no murmurs/rubs/gallops Abdomen: obese, soft abdomen with well healed midline incision. Hard indurated area palpabl e midline infraumbilical. Tenderness to palpation. Neuro: CN grossly intact, no obvious neurologic defecits Extremities: Warm and well perfused, no peripheral edema ASSESSMENT and PLAN: Trudy Ryan is a 63 y.o. female with multiple abdominal surgeries complicated by i ncisional hernia repaired with mesh. She complains of lower abdominal pain, diarrhea and ailyn ght red blood per rectum with no current fevers or systemic signs of infection. CT scan fro m 07/2013 was reviewed today with no distinct defect in mesh visible. Risks and benefits of hernia repair and mesh revision discussed with patient. Discussed importance of smoking cess ation and weight loss prior to considering surgery. Patient complaints of abdominal pain, di arrhea and BRBPR most likely not related to incisional hernia. Recommend that patient see GI specialist for GI work-up and possible colonoscopy. - Referral to GI at [facility] - Metamucil supplementation for chronic diarrhea - Smoking cessation discussed This patient was seen with Dr. Lucille De La Rosa and Dr. Smith Padilla. Anastasia Gutierrez, MS4 [facility] Department of Surgery documented in this encount er Plan of Treatment Not on filedocumented as of this encounter Procedures + +--------+ + + + | Procedure Name | Priori | Date/Time | Associated Diagnosis | Comments | | | ty | | | | + +--------+ + + + | RADIOLOGY | | 08/16/2013 | | Results for this | | | | 12:00 AM | | procedure are in the | | | | PDT | | results section. | + +--------+ + + + documented in this encounter Results RADIOLOGY (08/16/2013 12:00 AM PDT) + + + | Narrative | Performed At | + + + | | | | | | + + + + + | Procedure Note | + + | Prabhu Faculty - 11/23/2013 1:24 PM PDT | + + documented in this encounter Visit Diagnoses + + | Diagnosis | + + | Diarrhea - Primary | + + | Bloody diarrhea Diarrhea | + + | Abdominal pain | + + documented in this encounter
--- OUTSIDE RECORDS SUMMARY | ~2019-09-06 | XMS | Encounter Summary ---
Demographics + + + | Address | [address] | | | [place] [address] | + + + | Home Phone | | + + + | Preferred Language | Unknown | + + + | Marital Status | | + + + | Religion Affiliation | CATRACHITO | + + + | Race | or | + + + | Ethnic Group | Not or | + + + Author + + + | Author | [facility] | + + + | Organization | [facility] | + + + | Address | Unknown | + + + | Phone | Unavailable | + + + Support + + +---------+ + | Name | Relationship | Address | Phone | + + +---------+ + | Isaias Salas | ECON | Unknown | | + + +---------+ + Care Team Providers + +------+ + | Care Marketing Producer Name | Role | Phone | + +------+ + | Jairon Siegel | PCP | | + +------+ + Reason for Visit + + + | Reason | Comments | + + + | Appointment | | + + + | Scheduling | | + + + Encounter Details +--------+ + + + + | Date | Type | Department | Care Team | Description | +--------+ + + + + | 09/11/ | Telephone | Digestive Health | Lucille De La Rosa, | Appointment; | | 2013 | | Center at [facility] [address] | MD [address] | Scheduling | | | [address] | [place], [place] | | | | | for Health and | [address] | | | | | [facility] | [phone] | | | | | [place], [place] | | | | | | [address] | | | | | | [phone] | | | +--------+ + + + [...]
--- OUTSIDE RECORDS SUMMARY | ~2019-09-06 | XMS | Encounter Summary ---
Demographics + + + | Address | [address] | | | [place] [address] | + + + | Home Phone | | + + + | Preferred Language | Unknown | + + + | Marital Status | | + + + | Mandaen Affiliation | CATRACHITO | + + + | Race | or | + + + | Ethnic Group | Not or | + + + Author + + + | Author | [facility] | + + + | Organization | [facility] | + + + | Address | Unknown | + + + | Phone | Unavailable | + + + Support + + +---------+ + | Name | Relationship | Address | Phone | + + +---------+ + | Isaias Salas | ECON | Unknown | | + + +---------+ + Care Team Providers + +------+ + | Care Hot Roller Name | Role | Phone | + +------+ + | Jairon Siegel | PCP | | + +------+ + Reason for Visit + + + | Reason | Comments | + + + | Medical Records | CT abdomen/ pelvis 08/16/13 and 12/13/12 | | Review | | + + + Encounter Details +--------+ + + + + | Date | Type | Department | Care Team | Description | +--------+ + + + + | 09/24/ | Abstract | Digestive Health | Lucille De La Rosa, | Medical Records | | 2013 | | Center at [facility] [address] | [address] | Review (CT abdomen/ | | | | [facility] | [place], [place] | pelvis 08/16/13 and | | | | for Health and | [address] | 12/13/12) | | | | [facility], [address] | [phone] | | | | | [place], [place] | | | | | | [address] | | | | | | [phone] | | | +--------+ + + + [...] documented as of this encounter Progress Notes Cindi Clay MA - 09/24/2013 3:34 PM PDTImages viewable in [employer]. documented in this encounter Plan of Treatment Not on filedocumented as of this encounter Visit Diagnoses Not on filedocumented in this encounter"
--- OUTSIDE RECORDS SUMMARY | ~2019-09-06 | XMS | Encounter Summary ---
Demographics + + + | Address | [address] | | | [place] [address] | + + + | Home Phone | | + + + | Preferred Language | Unknown | + + + | Marital Status | | + + + | Restorationism Affiliation | CATRACHITO | + + + | Race | or | + + + | Ethnic Group | Not or | + + + Author + + + | Author | [facility] | + + + | Organization | [facility] | + + + | Address | Unknown | + + + | Phone | Unavailable | + + + Support + + +---------+ + | Name | Relationship | Address | Phone | + + +---------+ + | Isaias Salas | ECON | Unknown | | + + +---------+ + Care Team Providers + +------+ + | Care Monitor Worker Name | Role | Phone | + +------+ + | Sulaiman Henderson MD | PCP | | + +------+ + Reason for Visit + + + | Reason | Comments | + + + | Refill Request | MTX 2.5mg | + + + Encounter Details +--------+--------+ + + + | Date | Type | Department | Care Team | Description | +--------+--------+ + + + | 09/28/ | Refill | Rheumatology at | Ihsan Winters, | Refill Request (MTX | | 2009 | | [facility] | MD | 2.5mg) | | | | [address] | | | | | | [address] [facility] | | | | | | [place], [address] | | | | | | [place], [place] | | | | | | [address] | | | | | | [phone] | | | +--------+--------+ + + + Social History + +-------+ [...] as of this encounter Plan of Treatment + +------+--------+ + + | Name | Type | Priori | Associated Diagnoses | Order Schedule | | | | ty | | | + +------+--------+ + + | CBC, WITH | Lab | Routin | Encounter for | Ordered: 10/12/2009 | | DIFFERENTIAL | | e | long-term (current) | | | | | | use of medications | | + +------+--------+ + + documented as of this encounter Visit Diagnoses + + | Diagnosis | + + | Encounter for long-term (current) use of medications - Primary Encounter for | | long-term (current) use of other medications | + + documented in this encounter"
--- OUTSIDE RECORDS SUMMARY | ~2019-09-06 | XMS | Encounter Summary ---
Demographics + + + | Address | [address] | | | [place] [address] | + + + | Home Phone | | + + + | Preferred Language | Unknown | + + + | Marital Status | | + + + | Rastafarian Affiliation | CATRACHITO | + + + | Race | or | + + + | Ethnic Group | Not or | + + + Author + + + | Author | [facility] | + + + | Organization | [facility] | + + + | Address | Unknown | + + + | Phone | Unavailable | + + + Support + + +---------+ + | Name | Relationship | Address | Phone | + + +---------+ + | Isaias Salas | ECON | Unknown | | + + +---------+ + Care Team Providers + +------+ + | Care Explosive Operator Name | Role | Phone | + +------+ + | Jairon Siegel | PCP | | + +------+ + Encounter Details +--------+ + + + + | Date | Type | Department | Care Team | Description | +--------+ + + + + | 12/14/ | Abstract | Digestive Health | Lucille De La Rosa, | | | 2011 | | Center at [facility] [address] | MD [address] | | | | | [address] | [place], [place] | | | | | for Health and | [address] | | | | | Healing, [address] | [phone] | | | | | [place], [place] | | | | | | [address] | | | | | | [phone] | | | +--------+ + + + [...]
--- OUTSIDE RECORDS SUMMARY | ~2019-09-06 | XMS | Encounter Summary ---
Demographics + + + | Address | [address] | | | [place] [address] | + + + | Home Phone | | + + + | Preferred Language | Unknown | + + + | Marital Status | | + + + | Scientologist Affiliation | CATRACHITO | + + + | Race | or | + + + | Ethnic Group | Not or | + + + Author + + + | Author | [facility] | + + + | Organization | [facility] | + + + | Address | Unknown | + + + | Phone | Unavailable | + + + Support + + +---------+ + | Name | Relationship | Address | Phone | + + +---------+ + | Isaias Salas | ECON | Unknown | | + + +---------+ + Care Team Providers + +------+ + | Care Jet Aircraft Servicer Name | Role | Phone | + [...] | 2013 | | Center at [facility] [address] | MD [address] | Review | | | | [address] | [place], [place] | | | | | for Health and | [address] | | | | | [facility] | [phone] | | | | | [place], [place] | | | | | | [address] | | | | | | [phone] | | | +--------+ + + + [...]
--- OUTSIDE RECORDS SUMMARY | ~2019-09-06 | XMS | Encounter Summary ---
Demographics + + + | Address | [address] | | | [place] [address] | + + + | Home Phone | | + + + | Preferred Language | Unknown | + + + | Marital Status | | + + + | Jehovah'S Witness Affiliation | CATRACHITO | + + + | Race | or | + + + | Ethnic Group | Not or | + + + Author + + + | Author | [facility] | + + + | Organization | [facility] | + + + | Address | Unknown | + + + | Phone | Unavailable | + + + Support + + +---------+ + | Name | Relationship | Address | Phone | + + +---------+ + | Isaias Salas | ECON | Unknown | | + + +---------+ + Care Team Providers + +------+ + | Care Bark Peeler Name | Role | Phone | + [...] | Center at [facility] [address] | MD [address] | | | | | [address] [place] | [place], [place] | | | | | for Health and | [address] | | | | | Healing, [address] | [phone] | | | | | [place], [place] | | | | | | [address] | | | | | | [phone] | | | +--------+ + + + [...]
--- OUTSIDE RECORDS SUMMARY | ~2019-09-06 | XMS | Clinical Summary ---
Demographics + + + | Address | [address] | | | [place] [address] | + + + | Home Phone | | + + + | Preferred Language | Unknown | + + + | Marital Status | | + + + | Latter-Day Affiliation | CATRACHITO | + + + | Race | or | + + + | Ethnic Group | Not or | + + + Author + + + | Author | [facility] | + + + | Organization | [facility] | + + + | Address | Unknown | + + + | Phone | Unavailable | + + + Support + + +---------+ + | Name | Relationship | Address | Phone | + + +---------+ + | Isaias Salas | ECON | Unknown | | + + +---------+ + Care Team Providers + +------+ + | Care Area Field Manager Name | Role | Phone | + +------+ + | Jairon Siegel | PCP | | + +------+ + Source Comments AGATA is fully live on both EpicCare Ambulatory and EpicCare InPatient.[facility] Allergies + + + + + + | Active Allergy | Reactions | Severity | Noted | Comments | | | | | Date | | + + + + + + | Ibuprofen | | | 04/21/19 | | | | | | 10 | | + + + + + + | Penicillin G | | | 04/21/19 | | | | | | 10 | | + + + + + + | Methocarbamol | | | 03/03/11 | | | | | | 10 | | + + + + + + Medications + + + +---------+------+------+-------+ | Medication | Sig | Dispensed | Refills | Star | End | Statu | | | | | | t | Date | s | | | | | | Date | | | + + + +---------+------+------+-------+ | | Take 1-2 Tabs by | 30 Tab | 0 | 11/0 | | Activ | | HYDROcodone-acetamin | mouth every six | | | 3/20 | | e | | ophen 5-325 mg Oral | hours as needed (for | | | 12 | | | | tablet | pain.). [...] hour period.) | | | | | | + + + +---------+------+------+-------+ | Sennosides (SENNA) | Take 1 Cap by mouth | 30 Cap | 1 | 11/0 | | Activ | | 8.6 mg Oral capsule | two times daily. | | | 3/20 | | e | | | | | | 12 | | | + + + +---------+------+------+-------+ | POTASSIUM ORAL | Take by mouth. | | 0 | | | Activ | | | | | | | | e | + + + +---------+------+------+-------+ | DULOXETINE HCL | Take by mouth. | | 0 | | | Activ | | (CYMBALTA ORAL) | | | | | | e | + + + +---------+------+------+-------+ Active Problems + + + | Problem | Noted Date | + + + | Diarrhea | 09/23/2013 | + + + | Bloody diarrhea | 09/23/2013 | + + + | Abdominal pain | 09/23/2013 | + + + | Diverticulosis of small intestine | 12/23/2011 | + + + + + | Overview: ICD10 | + + + + + | Fever | 12/23/2011 | + + + | Abdominal pain | 12/21/2011 | + + + | Arthralgia | 07/15/2010 | + + + | Tobacco abuse | | + + + | Rheumatoid arthritis | | + + + + + | Overview: ICD10 | + + + +---+ | Hypokalemia | | + +---+ Social History + + + +--------+------+ | [...] recent travel history available. | + + Last Filed Vital Signs + + + [...] | | + + + + + Plan of Treatment + + + + + | Health Maintenance | Due Date | Last Done | Comments | + + + + + | Pneumococcal | | | | | vaccination (1 of 2 | 4 | | | | - PCV13) | | | | + + + + + | Influenza (Flu) | | | | | vaccination (#1) | 9 | | | + + + + + Results Not on filefrom Last 3 Months Insurance + +--------+ +--------+ + +--------+ | Payer | Benefi | Subscriber | Effect | Phone | Address | Type | | | t Plan | ID | goldy | | | | | | / | | Dates | | | | | | Group | | | | | | + +--------+ +--------+ + +--------+ | [place] | OHP | xxxxxxxx | 02/20/19 | [phone] | [address] | [address] | | | PLUS | | 14-Pre | 6 | [id number] | id | | | OPEN | | sent | | [place], [place] | | | | CARD | | | | [id number] | | + +--------+ +--------+ + +--------+ | [facility] | | [id number] | Effect | | | Agency | | SERVICE | | | goldy | | | | | | HEALTH | | for | | | | | | | | all | | | | | | SERVIC | | dates | | | | | | E | | | | | | + +--------+ +--------+ + +--------+ + +--------+ +--------+ + + | Guarantor Name | Accoun | Relation to | Date | Phone | Billing Address | | | t Type | Patient | of | | | | | | | | | | + +--------+ +--------+ + + | Trudy Salas | Person | Self | [birth year] | [address] | | | al/Fam | | 1950 | [phone] | [place] [address] | | | [place] | | | 7 (Home) | | + +--------+ +--------+ + + | Trudy Salas | Agency | Self | [birth year] | | [address] | | | | | 1949 | [address] | [place] [address] | | | | | | 7 ([place]) | | + +--------+ +--------+ + + Advance Directives + + + + + | Type | Date Recorded | Patient | Explanation | | | | Director Technical | | + + + + + | Advance | | | | | Directives and | | | | | Living Will | | | | + + + + + | Power of | | | | | Software Asset Management Analyst | | | | + + + + + + + + + + | Code Status | Date | Date | Comments | | | Activated | Inactivated | | + + + + + | Full Code | 12/21/2011 | 12/24/2011 | | | | 8:16 PM | 6:24 PM | | + + + + +
--- OUTSIDE RECORDS SUMMARY | ~2019-09-06 | XMS | Encounter Summary ---
Demographics + + + | Address | [address] | | | [place] [address] | + + + | Home Phone | | + + + | Preferred Language | Unknown | + + + | Marital Status | | + + + | Worship Affiliation | CATRACHITO | + + + | Race | or | + + + | Ethnic Group | Not or | + + + Author + + + | Author | [facility] | + + + | Organization | [facility] | + + + | Address | Unknown | + + + | Phone | Unavailable | + + + Support + + +---------+ + | Name | Relationship | Address | Phone | + + +---------+ + | Isaias Ryan | ECON | Unknown | | + + +---------+ + Care Team Providers + +------+ + | Care Counter Stacker Name | Role | Phone | + [...] | | ogy | Diarrhea | MD [address] | [address] | | | | | Bloody | Karlo Dyer | [address] | | | | | diarrhea | [address] | Center for | | | | | Abdominal | [place], [place] | Health and | | | | | pain | [address] | Healing, | | | | | Procedures | Phone: | [address] | | | | | CONSULT TO | [phone] | [place], [place] | | | | | GASTROENTERO | Fax: | [address] | | | | | LOGY | [phone] | Phone: | | | | | | | [phone] | | | | | | | Fax: | | | | | | | [phone] | +--------+--------+ + + + + Reason [...] | | | | | | | [place], [place] | | | | | | | [address] | | | | | | | Phone: | | | | | | | [phone] | | | | | | | Fax: | | | | | | | [phone] | +--------+--------+ + + + + Encounter [...] | | [address] | [place], [place] | diarrhea; Abdominal | | | | for Health and | [address] | pain | | | | Healing, [address] | [phone] | | | | | [place], [place] | | | | | | [address] | | | | | | [phone] | | | +--------+---------+ + + + [...] repair. HPI: Ms. Ryan was seen by [facility] ED in [facility], [place] 2 weeks ago for severe [...] colonoscopy was in 2011 at [facility] with Dr. Patel for similar complaints [...] possible colonoscopy. - Referral to GI at [facility] to discuss her functional abdominal pain and chronic diarrhea- 4-5 xs daily. - Recommend starting Metamucil supplementation for chronic diarrhea - Smoking cessation discussed Lucille De La Rosa MD, [facility] Higher Education Administrator Division of General and Gastrointestinal Surgery Department of Surgery, [place] [address] [place], [place] [id number] [facility] nastasia Gutierrez - 05/2013 1:25 PM PDT [facility] NOTE Author: Anastasia Gutierrez, MS4 Date: 09/23/2013 ID: Trudy yRan is a 63 y.o. female with a reported history of perforated Meckel's div erticulum in 2008 with small bowel resection followed by right colectomy for phlegmon. Recov campos complicated by incisional hernia repaired with composix mesh. PMH of cholecystectomy, rh eumatoid arthritis, osteoporosis and small bowel diverticulitis in 11/2011 treated with israel l rest and antibiotics. HPI: Ms. Ryan was seen by [facility] ED in [facility], [place] 2 weeks ago for severe [...] Her last colonoscopy was in 2011 at [facility] with Dr. Patel for similar complaints of [...] possible colonoscopy. - Referral to GI at [facility] - Metamucil supplementation for chronic diarrhea - Smoking cessation discussed This patient was seen with Dr. Lucille De La Rosa and Dr. Smith Padilla. Anastasia Gutierrez, MS4 [facility] Department of Surgery documented in this [...]
--- OUTSIDE RECORDS SUMMARY | ~2019-09-06 | XMS | Encounter Summary ---
Demographics + + + | Address | [address] | | | [place] [address] | + + + | Home Phone | | + + + | Preferred Language | Unknown | + + + | Marital Status | | + + + | Zoroastrian Affiliation | CATRACHITO | + + + | Race | or | + + + | Ethnic Group | Not or | + + + Author + + + | Author | [facility] | + + + | Organization | [facility] | + + + | Address | Unknown | + + + | Phone | Unavailable | + + + Support + + +---------+ + | Name | Relationship | Address | Phone | + + +---------+ + | Isaias Salas | ECON | Unknown | | + + +---------+ + Care Team Providers + +------+ + | Care Vice President Lending Name | Role | Phone | + [...] | +--------+ + + + + | 08/12/ | Telephone | Rheumatology at | [facility]olanda Contreras, | Test Results | | 2010 | | [facility] | | | | | | [address] | | | | | | [address] [facility] | | | | | | Pavilion, 4th Floor | | | | | | [place], [place] | | | | | | [address] | | | | | | [phone] | | | +--------+ + + + [...]
--- OUTSIDE RECORDS SUMMARY | ~2019-09-06 | XMS | Encounter Summary ---
Demographics + + + | Address | [address] | | | [place] [address] | + + + | Home Phone | | + + + | Preferred Language | Unknown | + + + | Marital Status | | + + + | Moravian Affiliation | CATRACHITO | + + + | Race | or | + + + | Ethnic Group | Not or | + + + Author + + + | Author | [facility] | + + + | Organization | [facility] | + + + | Address | Unknown | + + + | Phone | Unavailable | + + + Support + + +---------+ + | Name | Relationship | Address | Phone | + + +---------+ + | Isaias Salas | ECON | Unknown | | + + +---------+ + Care Team Providers + +------+ + | Care National Dedicated Truck Driver Name | Role | Phone | + [...] | +--------+ + + + + | 08/11/ | Telephone | Rheumatology at | [facility]re[facility], | Test Results | | 2010 | | [facility] | | | | | | [address] | | | | | | [address] [facility] | | | | | | Pavilion, 4th Floor | | | | | | [place], [place] | | | | | | [address] | | | | | | [phone] | | | +--------+ + + + [...]
--- OUTSIDE RECORDS SUMMARY | ~2019-09-06 | XMS | Encounter Summary ---
Demographics + + + | Address | [address] | | | [place] [address] | + + + | Home Phone [...] + + + | Author | [facility] | + + + | Organization | [facility] | [...] Team Providers + +------+ + | Care Engineering Faculty Name | Role | Phone | + [...] | Center at [address] | MD [address] | | | | | [address] | [place], [place] | | | | | for Health and | [address] | | | | | Healing, [address] | [phone] | | | | | [place], [place] | | | | | | [address] | | | | | | [phone] | | | +--------+ + + + [...]
--- OUTSIDE RECORDS SUMMARY | ~2019-09-06 | XMS | Encounter Summary ---
Demographics + + + | Address | [address] | | | [place] [address] | + + + | Home Phone | | + + + | Preferred Language | Unknown | + + + | Marital Status | | + + + | Gnosticism Affiliation | CATRACHITO | + + + | Race | or | + + + | Ethnic Group | Not or | + + + Author + + + | Author | [facility] | + + + | Organization | [facility] | + + + | Address | Unknown | + + + | Phone | Unavailable | + + + Support + + +---------+ + | Name | Relationship | Address | Phone | + + +---------+ + | Isaias Salas | ECON | Unknown | | + + +---------+ + Care Team Providers + +------+ + | Care Crown Ceramist Name | Role | Phone | + [...] + + | 12/20/ | Hospital | [facility] [address] | Ladan Glynn, | | | 2011 - | Encounter | [address] | [address] | | | | | [place] | | | 12/23/ | | [address] | [address] | | | 2011 | | [phone] | [phone] | | | | | | | [...] however presented to th e ER in [facility] with RLQ abdominal and right flank pain and fevers to 102 per patient's re port. She was found to have a leukocytosis of 11.[address] was obtained. The CT showed mult iple small bowel diverticula and ileal thickening. She was started on zosyn and monitored o vernight and decision was made to transfer her to [facility] for further care. Zosyn was stopped a [...] fiber due to diverticulitis. As discussed with compass operator. Activity NO DRIVING WHILE ON NARCOTICS. CONSTIPATION: [...] person will be ready by the next business day. It is your responsibility to keep [...] 'after hours' URGENT problems please call the [facility] glost kiln operator at and ask fo r the "[facility] resident on-call". Your Follow-Up Plan Follow up with LADAN GLYNN MD in 4 weeks. (01/17 you have an appointment with Dr. Roly east) Contact information: [address] [facility] [address] Vitals on discharge: Ht 165.1 cm [...] en counter Discharge Instructions Instructions Anabela Spencer 12/24/2011 Patient Education Materials: Abdominal Pain: After [...] Pain: After Your Visit", log into your EcoStart account at [email or web address]. You can enter E907 in the CELtrak" search box. Not on EcoStart? Review the Imaginatikt section of your After Visit Summary for directions on ho w to sign up. [phone] Policard. Care instructions adapted under license by [facility] [place]. This care instruction is for use with your licensed healthcar e professional. If you have questions about a medical condition or this instruction, always ask your healthcare professional. Policard disclaims any warranty or liabili ty for your use of this information. Content Version: 9.4.78167; Last Revised: June 13, 2011 Discharge Nurse: [...] Pain: After Your Visit", log into your EcoStart account at [email or web address]. You can enter E907 in the CELtrak" search box. Not on EcoStart? Review the eDabbahart section of your After Visit Summary for directions on ho w to sign up. [phone] Policard. Care instructions adapted under license by [facility] [place]. This care instruction is for use with your licensed healthcar e professional. If you have questions about a medical condition or this instruction, always ask your healthcare professional. Policard disclaims any warranty or liabili ty for your use of this information. Content Version: 9.4.74437; Last Revised: June 13, 2011 documented in [...] diverticulitis who presented as a transfer from [place], [place]. 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 Subjective: Trudy Salas is a 61 y.o. Female who [facility] with severe abdominal pain. A CT indicated small bowel diverticulitis and she was given a d ose of zosyn. Since she was scheduled to have surgery with Dr. Glynn on December 28 here at [facility], they transferred her here for care. She [...] a 61 y.o. Female transferred here from [place] for a small bowel diverticulitis. She has [...] her sx Scribed by Jefferson Herrera, MS3 [facility] Medical Student 2013 Pager [phone] I saw and examined this patient with [...] discharge patient in the AM. Sergio Madden, [id number] signed by Sergio Madden MD at 12/23/2011 9:20 PM PDTS Sergio ocampo MD - 12/22/2011 11:36 AM PDTFormatting of this note might be different fro m the original. [facility] Inpatient Progress Note Hospital Day #1 Author: SERGIO MADDEN MD Attending: Ladan Glynn MD ID: Trudy Sabine Salas Interval Hx: Transferred to [facility] from [place] last night. Febrile to 38.8 overnight. Chemistries: [...] 12/21/11699 - 12/22/1165812/22/11699 - 12/23/11 0659 Shift 0303-9429 0854-3606 6826-4202 Daily Total 8561-3266 4357-1465 0078-9167 Daily Total I N T A K E I.V. 297 057 3726 Shift Total 229 327 8838 O U T P U T Urine 658 777 1062 Urine 922 599 9636 Shift Total 266 181 8271 NET -255 130 -125 General: Awake, alert, [...] however presented to the E R in [facility] with RLQ abdominal and right flank pain and fevers to 102 per patient's repor t. She was found to have a leukocytosis of 11.[address] was obtained that showed some infla mmation of the ileum with diverticula. She was transferred to [facility] for management. Plan: 1. Inflammation of the [...] discharge: TBD Attending Physician: Rj Madden MD [facility] Blue Surgery Pager# [phone] 11:37 AM 12/22/2011 Current Inpatient Medications Medication [...] | + +--------+ + + + | REED PHAMICK ONLY | Routin | 12/21/2011 | | [...] + + | [facility] | [address] | [place] [address] | | | SERVICES, CORE | [address] [...] [facility] | [address] | [place] [address] | | | SERVICES, CORE | [address] | | | + + + + + MAGNESIUM, PLASMA (12/23/2011 4:56 AM PDT) + +---------+ + + + | Component | Value | Ref Range | Performed | Pathologist | | | | | At | Signature | + +---------+ + + + | MAGNESIUM,P | 1.6 (L) | 1.8 - 2.5 mg/dL | [facility] | | | L[facility]MA | | | [...] | + + + + + | [facility] | [address] | [place] [address] | | | SERVICES, CORE | [address] [...] | + + + + + | [facility] | [address] | [place] [address] | | | [address] | [address] | | | + + + + + CULTURE, STOOL BACTI (12/22/2011 11:02 AM PDT) + + + + + + | Component | Value | Ref Range | Performed | Pathologist | | | | | At | Signature | + + + + + + | CULTURE | C StoolSource: Stool | | [facility] - | | | RESULT | | | [facility] - | | | | Final CULTURE | | [place] | | | | RESULT:Salmonella, | | [...] | + + + + + | [facility] - | [address] | [place] [address] | | | [place] | | | | + + + + + X-RAY PORTABLE CHEST 1 VIEW (12/22/2011 9:39 AM PDT) + + + + + + | Component | Value | Ref Range | Performed | Pathologist | | | | | At | Signature | + + + + + + | X-RAY | EXAM: [place] CHEST 1 VIEW, | | | | [...] | | | | | | abdominal pain. | | | | | | Febrile. FINDINGS: | | | | | | There is trace bibasilar | | | | | | linear atelectasis, | | | | | | otherwise the lungs | | | | | | areclear. There is no | | | | | | pleural effusion or | | | | | | pneumothorax. | | | | | | Thecardiomediastinal | | | | | | contour is normal. The | | | | | | osseous structures | | | | | | [...] + + | [facility] | [address] | [place] [address] | | | SERVICES, CORE | PARK [...] | + + + + + | [facility] | [address] | [place] [address] | | | SERVICES, CORE | [address] | | | + + + + + ERIN PHAM (12/22/2011 3:08 AM PDT) + + + [...] [facility] | [address] | [place] [address] | | | SERVICES, CORE | [address] | | | + + + + + CULTURE, BLOOD BACTI & YEAST [facility] (12/22/2011 1:37 AM PDT) + + + [...] | + + + + + | [facility] | [address] | [place] [address] | | | [address] | [address] | | | + [...] [facility] | [address] | [place] [address] | | | SERVICES, CORE | [address] [...] + + | [facility] | [address] | [place] [address] | | | SERVICES, CORE | [address] | | | + + + + + UAERIN ONLY (12/21/2011 10:05 PM PDT) + + [...] + + | [facility] | [address] | [place] [address] | | | SERVICES, CORE | [address] [...] view image for the detailed interpretation from [facility] results. | CARDIOLOGY | + + + + + + + + | Performing | Address | City/State/Zipcode | Phone Number | | Organization | | | | + + + + + | [facility] | [address] | [place], [place] | | | CARDIOLOGY | [facility] | [address] | | + + + + + [...] + + | [facility] | [address] | [place] [address] | | | SERVICES, CORE | [address] [...] Venous Thromboembolism (2.0 - 3.0) INR INR for | LABORATORY | | most patients with mech. valves (2.5 - 3.5) INR | SERVICES, CORE | + + + + + + + + | Performing | Address | City/State/Zipcode | Phone Number | | Organization | | | | + + + + + | [facility] | [address] | [place] [address] | | | SERVICES, CORE | [address] [...] | + + + + + | [facility] | [address] | [place] [address] | | | SERVICES, CORE | [address] [...] [facility] | [address] | [place] [address] | | | SERVICES, CORE | [address] | | | + + + + + RADIOLOGY (12/21/2011 12:00 AM PDT) + + + | Narrative | Performed At | + + + | | | | | | + + + + + | Procedure Note | + + | Prabhu Faculty - 12/30/2011 10:47 AM PST | + [...] | | | | First dose on Lori 12/22/11 at | | | | | | [...] | | | | | 2014, Until 12/24/11 at 1824, | | | | | | | nausea/vomiting | | | | | | + +---------+ +------+--------+---+ +---+---+ | | | +---+---+ + +-------+ +--------+---+---+ | potassium & sodium phosphates | Given | 12/23/19 | 500 mg | | | | (aka K PHOS NEUTRAL) tablet 500 | | 12 [...] | +---+---+ + +-------+ +------+---+---+ | zolpidem (tiffany CARLIN) tablet 5 | Given | 12/23/19 | 5 mg | | | | mg 5 mg, oral, AT BEDTIME | | 12 8:18 | | | | | NEEDED, Starting Lori 12/22/11 at | | PM PDT | [...]
--- OUTSIDE RECORDS SUMMARY | ~2019-09-06 | XMS | Encounter Summary ---
Demographics + + + | Address | [address] | | | [place] [address] | + + + | Home Phone | | + + + | Preferred Language | Unknown | + + + | Marital Status | | + + + | Alevism Affiliation | CATRACHITO | + + + | Race | or | + + + | Ethnic Group | Not or | + + + Author + + + | Author | [facility] | + + + | Organization | [facility] | + + + | Address | Unknown | + + + | Phone | Unavailable | + + + Support + + +---------+ + | Name | Relationship | Address | Phone | + + +---------+ + | Isaias Salas | ECON | Unknown | | + + +---------+ + Care Team Providers + +------+ + | Care Inventory Clerk Name | Role | Phone | + +------+ + | No Pcp Per Patient | PCP | Unavailable | + +------+ + Encounter Details +--------+ + + + + | Date | Type | Department | Care Team | Description | +--------+ + + + + | 07/06/ | Abstract | [facility] | Clinic, Surgery | | | 2011 | | [place] [address] [address] | | | | | | [facility] | | | | | | for Health and | | | | | | Healing, [address] | | | | | | [place], [place] | | | | | | [address] | | | | | | [phone] | | | +--------+ + + + [...]
--- OUTSIDE RECORDS SUMMARY | ~2019-09-06 | XMS | Encounter Summary ---
Demographics + + + | Address | [address] | | | [place] [address] | + + + | Home Phone | | + + + | Preferred Language | Unknown | + + + | Marital Status | | + + + | Confucianist Affiliation | CATRACHITO | + + + | Race | or | + + + | Ethnic Group | Not or | + + + Author + + + | Author | [facility] | + + + | Organization | [facility] | + + + | Address | Unknown | + + + | Phone | Unavailable | + + + Support + + +---------+ + | Name | Relationship | Address | Phone | + + +---------+ + | Isaias Salas | ECON | Unknown | | + + +---------+ + Care Team Providers + +------+ + | Care Logging Equipment Operator Name | Role | Phone | [...] Floor | | | | | | [place], [place] | | | | | | [address] | | | | | | [phone] | | | +--------+--------+ + + + [...]
--- OUTSIDE RECORDS SUMMARY | ~2019-09-06 | XMS | Encounter Summary ---
Demographics + + + | Address | [address] | | | [place] [address] | + + + | Home Phone | | + + + | Preferred Language | Unknown | + + + | Marital Status | | + + + | Pentecostalism Affiliation | CATRACHITO | + + + | Race | or | + + + | Ethnic Group | Not or | + + + Author + + + | Author | [facility] | + + + | Organization | [facility] | + + + | Address | Unknown | + + + | Phone | Unavailable | + + + Support + + +---------+ + | Name | Relationship | Address | Phone | + + +---------+ + | Isaias Salas | ECON | Unknown | | + + +---------+ + Care Team Providers + +------+ + | Care Director Drug Name | Role | Phone | + +------+ + | Lizzette Mcknight MD | PCP | | + +------+ + Reason for Visit + + + | Reason | Comments | + + + | Lab Results | | + + + Encounter Details +--------+ + + + + | Date | Type | Department | Care Team | Description | +--------+ + + + + | 08/13/ | Documentati | Rheumatology at | Yolanda Contreras, | Lab Results | | 2010 | on | Physicians [facility] | | | | | | [address] | | | | | | [address] Phys[address] | | | | | | Pavilion, [address]th Floor | | | | | | [place], [place] | | | | | | [address] | | | | | | [phone] | | | +--------+ + + + [...]
--- OUTSIDE RECORDS SUMMARY | ~2019-09-06 | XMS | Encounter Summary ---
Demographics + + + | Address | [address] | | | [place] [address] | + + + | Home Phone [...] [facility] | + + + | Organization | [facility] | + + + | Address | Unknown | + + + | Phone | Unavailable | + + + Support + + +---------+ + | Name | Relationship | Address | Phone | + + +---------+ + | Isaias Salas | ECON | Unknown | | + + +---------+ + Care Team Providers + +------+ + | Care Commercial Print Salesman Name | Role | Phone | + [...] | Center at [address] | MD [address] | | | | | [address] [place] | [place], [place] | | | | | for Health and | [address] | | | | | Healing, [address] | [phone] | | | | | [place], [place] | | | | | | [address] | | | | | | [phone] | | | +--------+ + + + [...]
--- OUTSIDE RECORDS SUMMARY | ~2019-09-06 | XMS | Encounter Summary ---
Demographics + + + | Address | [address] | | | [place] [address] | + + + | Home Phone | | + + + | Preferred Language | Unknown | + + + | Marital Status | | + + + | Zoroastrianism Affiliation | CATRACHITO | + + + | Race | or | + + + | Ethnic Group | Not or | + + + Author + + + | Author | [facility] | + + + | Organization | [facility] | + + + | Address | Unknown | + + + | Phone | Unavailable | + + + Support + + +---------+ + | Name | Relationship | Address | Phone | + + +---------+ + | Isaias Salas | ECON | Unknown | | + + +---------+ + Care Team Providers + +------+ + | Care Public Finance Specialist Name | Role | Phone | [...] Zack | | | | | | [address] | | | | | | [facility] | | | | | | [address], 4th Floor | | | | | | [place], [place] | | | | | | [address] | | | | | | [phone] | | | +--------+ + + + [...]
--- OUTSIDE RECORDS SUMMARY | ~2019-09-06 | XMS | Encounter Summary ---
Demographics + + + | Address | [address] | | | [place] [address] | + + + | Home Phone [...] | [facility] | + + + | Organization | [facility] | + + + | Address | Unknown | + + + | Phone | Unavailable | + + + Support + + +---------+ + | Name | Relationship | Address | Phone | + + +---------+ + | Isaias Salas | ECON | Unknown | | + + +---------+ + Care Team Providers + +------+ + | Care Forest Fire Warden Name | Role | Phone | + +------+ + | Jairon Siegel | PCP | | + +------+ + Reason for Visit + + + | Reason | Comments | + + + | Medical Records | [facility] - OUTSIDE RECORD: Chart note 11/25/2013 | | Review | | + + + Encounter Details +--------+ + + + + | Date | Type | Department | Care Team | Description | +--------+ + + + + | 12/06/ | Abstract | Digestive Health | Lucille De La Rosa, | Medical Records | | 2013 | | Center at [facility] [address] | [address] | Review ([facility] - | | | | [facility] [place] | [place], [place] | OUTSIDE RECORD: | | | | for Health and | [address] | Chart note | | | | [facility], [facility] 2 | [phone] | 11/25/2013) | | | | [place], [place] | | | | | | [address] | | | | | | [phone] | | | +--------+ + + + [...]
--- OUTSIDE RECORDS SUMMARY | ~2019-09-06 | XMS | Encounter Summary ---
Demographics + + + | Address | [address] | | | [place] [address] | + + + | Home Phone | | + + + | Preferred Language | Unknown | + + + | Marital Status | | + + + | Muslim Affiliation | CATRACHITO | + + + | Race | or | + + + | Ethnic Group | Not or | + + + Author + + + | Author | [facility] | + + + | Organization | [facility] | + + + | Address | Unknown | + + + | Phone | Unavailable | + + + Support + + +---------+ + | Name | Relationship | Address | Phone | + + +---------+ + | Isaias Salas | ECON | Unknown | | + + +---------+ + Care Team Providers + +------+ + | Care Guidance Adviser Name | Role | Phone | + [...] | (Synovial Fluid) | | | | [address] | | | | | | Loop Physician's | | | | | | Zack, [facility] Floor | | | | | | [place], [place] | | | | | | [address] | | | | | | [phone] | | | +--------+ + + + [...]
--- OUTSIDE RECORDS SUMMARY | ~2019-09-06 | XMS | Encounter Summary ---
Demographics + + + | Address | [address] | | | [place] [address] | + + + | Home Phone [...] + + | Author | [facility] | + + + | Organization | [facility] | + + + | Address | Unknown | + + + | Phone | Unavailable | + + + Support + + +---------+ + | Name | Relationship | Address | Phone | + + +---------+ + | Isaias Salas | ECON | Unknown | | + + +---------+ + Care Team Providers + +------+ + | Care Medicine Worker Name | Role | Phone | + +------+ + | No Pcp Per Patient | PCP | Unavailable | + +------+ + Reason for Visit + + + | Reason | Comments | + + + | Refill Request | MTX | + + + Encounter Details +--------+--------+ + + + | Date | Type | Department | Care Team | Description | +--------+--------+ + + + | 12/14/ | Refill | Rheumatology at | Yolanda Contreras, | Refill Request (MTX) | | 2010 | | Physicians Zack Huynh MD | | | | | [address] | | | | | | Loop Physician's | | | | | | [place], 4th Floor | | | | | | [place], [place] | | | | | | [address] | | | | | | [phone] | | | +--------+--------+ + + + [...]
--- OUTSIDE RECORDS SUMMARY | ~2019-09-06 | XMS | Encounter Summary ---
Demographics + + + | Address | [address] | | | [place] [address] | + + + | Home Phone | | + + + | Preferred Language | Unknown | + + + | Marital Status | | + + + | Sabianist Affiliation | CATRACHITO | + + + | Race | or | + + + | Ethnic Group | Not or | + + + Author + + + | Author | [facility] | + + + | Organization | [facility] | + + + | Address | Unknown | + + + | Phone | Unavailable | + + + Support + + +---------+ + | Name | Relationship | Address | Phone | + + +---------+ + | Isaias Salas | ECON | Unknown | | + + +---------+ + Care Team Providers + +------+ + | Care Systems Qa Analyst Name | Role | Phone | [...] Zack | | | | | | [address] | | | | | | Loop Physician's | | | | | | Pavilion, 4th Floor | | | | | | [place], [place] | | | | | | [address] | | | | | | [phone] | | | +--------+ + + + [...]
--- OUTSIDE RECORDS SUMMARY | ~2019-09-06 | XMS | Encounter Summary ---
Demographics + + + | Address | [address] | | | [place] [address] | + + + | Home Phone | | + + + | Preferred Language | Unknown | + + + | Marital Status | | + + + | Temple Affiliation | CATRACHITO | + + + | Race | or | + + + | Ethnic Group | Not or | + + + Author + + + | Author | [facility] | + + + | Organization | [facility] | + + + | Address | Unknown | + + + | Phone | Unavailable | + + + Support + + +---------+ + | Name | Relationship | Address | Phone | + + +---------+ + | Isaias Salas | ECON | Unknown | | + + +---------+ + Care Team Providers + +------+ + | Care Otr Van Cdl Truck Driver Name | Role | Phone [...] + + + + | 12/21/ | Wine Blender | Rheumatology at | Yolanda Contreras, | Arthralgia (Primary | | 2010 | | Physicians [facility] | | Dx) | | | | [address] | | | | | | Loop Physician's | | | | | | [place], 4th Floor | | | | | | [place], [place] | | | | | | [address] | | | | | | [phone] | | | +--------+ + + + [...]
--- OUTSIDE RECORDS SUMMARY | ~2019-09-06 | XMS | Encounter Summary ---
Demographics + + + | Address | [address] | | | [place] [address] | + + + | Home Phone | | + + + | Preferred Language | Unknown | + + + | Marital Status | | + + + | Caodaism Affiliation | CATRACHITO | + + + | Race | or | + + + | Ethnic Group | Not or | + + + Author + + + | Author | [facility] | + + + | Organization | [facility] | + + + | Address | Unknown | + + + | Phone | Unavailable | + + + Support + + +---------+ + | Name | Relationship | Address | Phone | + + +---------+ + | Isaias Salas | ECON | Unknown | | + + +---------+ + Care Team Providers + +------+ + | Care Head Bellhop Captain Name | Role | Phone | + [...] + + | 12/20/ | Hospital | [facility] [address] | Ladan Glynn, | | | 2011 - | Encounter | [address] | [address] | | | | | [place], [place] | [place] | | | 12/23/ | | [address] | [address] | | | 2011 | | [phone] | [phone] | | | | | | | [...] however presented to th e ER in [facility] with RLQ abdominal and right flank pain and fevers to 102 per patient's re port. She was found to have a leukocytosis of 11.[address] was obtained. The CT showed mult iple small bowel diverticula and ileal thickening. She was started on zosyn and monitored o vernight and decision was made to transfer her to [facility] for further care. Zosyn was stopped [...] fiber due to diverticulitis. As discussed with mine deputy. Activity NO DRIVING WHILE ON NARCOTICS. CONSTIPATION: [...] 'after hours' URGENT problems please call the [facility] six pack loader operator at and ask fo r the "[facility] resident on-call". Your Follow-Up Plan Follow up with LADAN GLYNN MD in 4 weeks. (01/17 you have an appointment with Dr. Roly east) Contact information: [address] [facility] [address] Vitals on discharge: Ht 165.1 [...] Pain: After Your Visit", log into your Moneylib account at [email or web address]. You can enter E907 in the SkySpecs" search box. Not on Moneylib? Review the TripAdvisort section of your After Visit Summary for directions on ho w to sign up. [id number] YouBeQB. Care instructions adapted under license by [facility] [place]. This care instruction is for use with your licensed healthcar e professional. If you have questions about a medical condition or this instruction, always ask your healthcare professional. [employer] disclaims any warranty or liabili ty for your use of this information. Content Version: 9.4.07399; Last Revised: June 13, 2011 Discharge Nurse: [...] Pain: After Your Visit", log into your Moneylib account at [email or web address]. You can enter E907 in the SkySpecs" search box. Not on Moneylib? Review the [place] Lightinghart section of your After Visit Summary for directions on ho w to sign up. [phone] YouBeQB. Care instructions adapted under license by [facility] [place]. This care instruction is for use with your licensed healthcar e professional. If you have questions about a medical condition or this instruction, always ask your healthcare professional. YouBeQB disclaims any warranty or liabili ty for your use of this information. Content Version: 9.4.45642; Last Revised: June 13, 2011 documented in [...] diverticulitis who presented as a transfer from [place], [place]. 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 Subjective: Trudy Salas is a 61 y.o. Female who presented to [facility] a few days ago with severe abdominal pain. A CT indicated small bowel diverticulitis and she was given a d ose of zosyn. Since she was scheduled to have surgery with Dr. Glynn on December 28 here at [facility], they transferred her here for care. [...] a 61 y.o. Female transferred here from [place] for a small bowel diverticulitis. She has [...] her sx Scribed by Jefferson Herrera, MS3 [facility] Medical Student 2013 Pager [phone] I saw and examined this patient with [...] discharge patient in the AM. Sergio Madden, [id number] signed by Sergio Madden MD at 12/23/2011 9:20 PM PDTS Sergio ocampo MD - 12/22/2011 11:36 AM PDTFormatting of this note might be different fro m the original. [facility] Inpatient Progress Note Hospital Day #1 Author: SERGIO MADDEN MD Attending: Ladan Glynn MD ID: Trudy Sabine Salas Interval Hx: Transferred to [facility] from [place] last night. Febrile to 38.8 overnight. Chemistries: [...] 12/21/11699 - 12/22/1165812/22/11699 - 12/23/11 0659 Shift 1860-1121 0764-0219 1882-1602 Daily Total 6121-8234 3909-4484 3426-4841 Daily Total I N T A K E I.V. 166 510 5450 Shift Total 983 833 3420 O U T P U T Urine 388 107 6766 Urine 521 792 6409 Shift Total 302 185 5208 NET -255 130 -125 General: Awake, alert, [...] however presented to the E R in [facility] with RLQ abdominal and right flank pain and fevers to 102 per patient's repor t. She was found to have a leukocytosis of 11.[address] was obtained that showed some infla mmation of the ileum with diverticula. She was transferred to [facility] for management. Plan: 1. Inflammation of [...] discharge: TBD Attending Physician: Rj Madden MD [facility] Pager# [phone] 11:37 AM 12/22/2011 Current Inpatient Medications Medication [...] + + | [facility] | [address] | [place] [address] | | | SERVICES, CORE | PARK [...] [facility] | [address] | [place] [address] | | | SERVICES, CORE | PARK [...] | + + + + + | [facility] | [address] | [place] [address] | | | SERVICES, CORE | [address]RIANO [...] [facility] | [address] | [place] [address] | | | MADDIE GUERRERO | ADRIANO [...] | | | Final CULTURE | | [place] | | | | RESULT:Salmonella, | | [...] + | [facility] - | [address] | [place] [address] | | | [place] | | | | + + + + + X-RAY PORTABLE CHEST 1 VIEW (12/22/2011 9:39 AM PDT) + + + + + + | Component | Value | Ref Range | Performed | Pathologist | | | | | At | Signature | + + + + + + | X-RAY | EXAM: SC CHEST 1 VIEW, | | | | [...] LABORATORY | [address] | [place] [address] | | | SERVICES, CORE | PARK [...] | + + + + + | [facility] | [address] | [place] [address] | | | SERVICES, CORE | ADRIANO [...] + + | [facility] | [address] | [place] [address] | | | SERVICES, CORE | [address] | | | + + + + + CULTURE, BLOOD BACTI & YEAST [facility] (12/22/2011 1:37 AM PDT) + + + [...] | + + + + + | [employer] [facility] | [address] | [place] [address] | | | [address] | ADRIANO [...] [facility] | [address] | [place] [address] | | | SERVICES, CORE | PARK [...] [facility] | [address] | [place] [address] | | | SERVICES, CORE | PARK [...] [facility] | [address] | [place] [address] | | | SERVICES, CORE | ADRIANO [...] view image for the detailed interpretation from [employer] results. | CARDIOLOGY | + + + + + + + + | Performing | Address | City/State/Zipcode | Phone Number | | Organization | | | | + + + + + | [facility] | [address] | [place], [place] | | | CARDIOLOGY | [facility] | [address] | | + + + + + [...] + + | [facility] | [address] | [place] [address] | | | SERVICES, CORE | PARK [...] [facility] | [address] | [place] [address] | | | SERVICES, CORE | PARK [...] | + + + + + | [facility] | [address] | [place] [address] | | | SERVICES, CORE | ADRIANO [...] [facility] | [address] | [place] [address] | | | SERVICES, CORE | PARK [...]
--- OUTSIDE RECORDS SUMMARY | ~2019-09-06 | XMS | Encounter Summary ---
Demographics + + + | Address | [address] | | | [place] [address] | + + + | Home Phone | | + + + | Preferred Language | Unknown | + + + | Marital Status | | + + + | Methodist Affiliation | CATRACHITO | + + + | Race | or | + + + | Ethnic Group | Not or | + + + Author + + + | Author | [facility] | + + + | Organization | [facility] | + + + | Address | Unknown | + + + | Phone | Unavailable | + + + Support + + +---------+ + | Name | Relationship | Address | Phone | + + +---------+ + | Isaias Salas | ECON | Unknown | | + + +---------+ + Care Team Providers + +------+ + | Care Management Scientist Name | Role | Phone | + +------+ + | Jairon Siegel | PCP | | + +------+ + Reason for Visit +--------+ + | Reason | Comments | +--------+ + | Other | no show for pre surgical anesthesia evaluation | +--------+ + Encounter Details +--------+ + + + + | Date | Type | Department | Care Team | Description | +--------+ + + + + | 03/01/ | Telephone | Digestive Health | Lucille De La Rosa W, | Other (no show for | | 2012 | | Center at [facility] [address] | [address] | pre surgical | | | | [address] | [place], [place] | anesthesia | | | | for Health and | [address] | evaluation) | | | | [facility] | [phone] | | | | | [place], [place] | | | | | | [address] | | | | | | [phone] | | | +--------+ + + + [...]
--- OUTSIDE RECORDS SUMMARY | ~2019-09-06 | XMS | Encounter Summary ---
Demographics + + + | Address | [address] | | | [place] [address] | + + + | Home Phone | | + + + | Preferred Language | Unknown | + + + | Marital Status | | + + + | Restorationist Affiliation | CATRACHITO | + + + | Race | or | + + + | Ethnic Group | Not or | + + + Author + + + | Author | [facility] | + + + | Organization | [facility] | + + + | Address | Unknown | + + + | Phone | Unavailable | + + + Support + + +---------+ + | Name | Relationship | Address | Phone | + + +---------+ + | Isaias Salas | ECON | Unknown | | + + +---------+ + Care Team Providers + +------+ + | Care Continuity Writer Name | Role | Phone | + [...] 12/07/ | Telephone | SOCIAL WORK | Shahzad Vosscy | Referral to social | | 2011 | | [facility] [address] | [address] | worker | | | | [address] | [place], | | | | | Mailcode: CH[address]A | [place] [address] | | | | | [place], [place] | | | | | | [address] | | | | | | [phone] | | | +--------+ + + + [...]
--- OUTSIDE RECORDS SUMMARY | ~2019-09-06 | XMS | Encounter Summary ---
Demographics + + + | Address | [address] | | | [place] [address] | + + + | Home Phone | | + + + | Preferred Language | Unknown | + + + | Marital Status | | + + + | Anabaptism Affiliation | CATRACHITO | + + + | Race | or | + + + | Ethnic Group | Not or | + + + Author + + + | Author | [facility] | + + + | Organization | [facility] | + + + | Address | Unknown | + + + | Phone | Unavailable | + + + Support + + +---------+ + | Name | Relationship | Address | Phone | + + +---------+ + | Isaias Salas | ECON | Unknown | | + + +---------+ + Care Team Providers + +------+ + | Care Hurl Shaker Name | Role | Phone | + [...] | | hernia | [address] | [facility] [place] | | | | | Procedures | [address] | [address] | | | | | REQUEST TO | Gomez | Phone: | | | | | SURGERY | [address] | [phone] | | | | | FLOORHAND | [place], [place] | Fax: | | | | | [place] REPAIR | [address] | [phone] | | | | | RECURR INCIS | | | | | | | | | | | | | | HERNIA,REDUC | | | | | | | [place] REPAIR | | | | | | | INCIS HERNIA | | | | | | | [address] [place] | | | | | | | [...] | mention of | CL[facility] [address] | [place], [place] | | | | | obstruction | [address] | [address] | | | | | or gangrene | AVE | Phone: | | | | | Procedures | [place], | [phone] | | | | | CONSULT TO | [place] [address] | Fax: | | | | | GENERAL | Phone: | [phone] | | | | | SURGERY | [phone] | | | | | | | Fax: | | | | | | | [phone] | | +--------+ + + + + + Encounter Details +--------+---------+ + + + | Date | Type | Department | Care Team | Description | +--------+---------+ + + + | 12/06/ | Office | Digestive Health | Lucille De La Rosa, | Incisional hernia | | 2011 | Visit | Center at [facility] [address] | MD [address] | (Primary Dx) | | | | [address] | [place], [place] | | | | | for Health and | [address] | | | | | [facility] | [phone] | | | | | [place], [place] | | | | | | [address] | | | | | | [phone] | | | +--------+---------+ + + + [...] Garcia RN - 12/07/2011 10:56 AM PDTEPICSPINPTPREOPINSTRUCTIONSP [facility] General Surgery Office Toll-free: ext [phone] Surgery Date: December 29, 2011 Procedure: Open [...] the surgery. Please see the list below, [facility] has a list of products that [...] please call the General Surgery Office at [phone] for [id number]. PARKING Parking for patients and visitors is available in the [facility] Parking structure located across from the emergency department. Patient parking is available on level 1 and 3. [place] red parking is available on the top level. CHECKING IN FOR SURGERY For Hospital Admission (in-patient) you will check in on the day of surgery at the Admittin g Department located on the 9th floor of [facility] TRANSPORTATION You will require transportation home on the day of discharge. Pain medications and physica l activity restrictions may limit your ability to drive safely. CANCELLING YOUR PROCEDURE Please notify the general surgery office at [phone] as soon as possible should you nee [...] prior to your surgery. PRODUCTS CONTAINING ASPIRIN [place], Anacin, Anexsia with Codeine, Andynos, Aspirin, Aspirin suppositories, Ascrip tin, Aspergum, Axotal, B-A-C, Baby Aspirin, Piotr, BC Powder, Bexophene, Buffaprin, Bufferin , Buffinol, Cama-Arthritis Strength, Congespirin, Bowers, Coricidin, Damason, Darvon, Dristan, Isadora-Gesic, Digel, Dolprin #3 Tablets, Donatab, Doxaphene, Duragesic, Easprin, Ecotrin, Emag rin Forte, Emiprin, Emprazil, Equagesic, Equazine M, Excedrin, Fiogesic, Fiorgen PH, Fiorice t, Fiorinal, 4-Way Cold Tablet Gemnisyn, Indocin, Liquprin, Lortab ASA, Magnaprin, Marnal, Meprobamate, Midol, Momentum, N orgesic, [place], Orphengesic, Pabalate, P-A-C, Percodan, Presalin, Robaxasil, Roxiprin, Trey eto, Salocol SK-65 Compound, Sine-Aid, Sine-Off,, Calera, Supac, Talwin Compound, Trigesic, Tolectin , Traiminicin, Vanquish, ZORprin, Zomax PRODUCTS CONTAINING IBUPROFEN Advil, Aleve, Haltran, Medipren, Midol, Motrin, Naproxyn, Nuprin, Rufen OTHER PRODUCTS WHICH MAY PROMOTE BLEEDING Vitamin E, Gingko Biloba, Marine Fatty Acids, Leopold-3 Fish Oil Supplements documented in this encounter Progress Notes Lucille De La Rosa MD - 12/08/2011 1:05 PM PDTI saw and evaluated the patient. I agree with the findings and the plan of care as documented in the resident s note. MD LUCILLE Dumont MD [facility] Mailcode: [id number] [address] Jona Davis MD - 12/07/2011 10:56 AM [...] stairs without difficulty. She is referred to [facility] for possible component separation and repair [...] plan. Jona Conley MD MIS/Bariatric Fellow, Pager [phone] [facility] Attending provider: Lucille De La Rosa [...]
--- OUTSIDE RECORDS SUMMARY | ~2019-09-06 | XMS | Encounter Summary ---
Demographics + + + | Address | [address] | | | [place] [address] | + + + | Home Phone [...] + + | Author | [facility] | + + + | Organization | [facility] | + + + | Address | Unknown | + + + | Phone | Unavailable | + + + Support + + +---------+ + | Name | Relationship | Address | Phone | + + +---------+ + | Isaias Salas | ECON | Unknown | | + + +---------+ + Care Team Providers + +------+ + | Care Production Utility Worker Name | Role | Phone | [...] Huynh MD | | | | | [address] | | | | | | [address] [facility] | | | | | | [place], 4th Floor | | | | | | [place], [place] | | | | | | [address] | | | | | | [phone] | | | +--------+--------+ + + + [...]
--- OUTSIDE RECORDS SUMMARY | ~2019-09-06 | XMS | Encounter Summary ---
Demographics + + + | Address | [address] | | | [place] [address] | + + + | Home Phone [...] | Author | [facility] | + + + | Organization | [facility] | + + + | Address | Unknown | + + + | Phone | Unavailable | + + + Support + + +---------+ + | Name | Relationship | Address | Phone | + + +---------+ + | Isaias Salas | ECON | Unknown | | + + +---------+ + Care Team Providers + +------+ + | Care Manager Wireless Name | Role | Phone | + +------+ + | No Pcp Per Patient | PCP | Unavailable | + +------+ + Encounter Details +--------+ + + + + | Date | Type | Department | Care Team | Description | +--------+ + + + + | 07/06/ | Abstract | Digestive Health | Clinic, Surgery | | | 2011 | | [place] [address] [address] | | | | | | [facility] | | | | | | for Health and | | | | | | Healing, [address] | | | | | | [place], [place] | | | | | | [address] | | | | | | [phone] | | | +--------+ + + + [...]
--- OUTSIDE RECORDS SUMMARY | ~2019-09-06 | XMS | Encounter Summary ---
Demographics + + + | Address | [address] | | | [place] [address] | + + + | Home Phone | | + + + | Preferred Language | Unknown | + + + | Marital Status | | + + + | Jew Affiliation | CATRACHITO | + + + | Race | or | + + + | Ethnic Group | Not or | + + + Author + + + | Author | [facility] | + + + | Organization | [facility] | + + + | Address | Unknown | + + + | Phone | Unavailable | + + + Support + + +---------+ + | Name | Relationship | Address | Phone | + + +---------+ + | Isaias Salas | ECON | Unknown | | + + +---------+ + Care Team Providers + +------+ + | Care Order Fulfillment Specialist Name | Role | Phone | [...] Floor | | | | | | [place], [place] | | | | | | [address] | | | | | | [phone] | | | +--------+---------+ + + + [...]
--- OUTSIDE RECORDS SUMMARY | ~2019-09-06 | XMS | Encounter Summary ---
Demographics + + + | Address | [address] | | | [place] [address] | + + + | Home Phone [...] + + | Author | [facility] | + + + | Organization | [facility] | + + + | Address | Unknown | + + + | Phone | Unavailable | + + + Support + + +---------+ + | Name | Relationship | Address | Phone | + + +---------+ + | Isaias Salas | ECON | Unknown | | + + +---------+ + Care Team Providers + +------+ + | Care Trauma Surgeon Name | Role | Phone | + [...] | Dx) | | | | [address] | | | | | | [address] | | | | | | [address], 4th Floor | | | | | | [place], [place] | | | | | | [address] | | | | | | [phone] | | | +--------+---------+ + + + [...] note. DM HALEY MD (ATUL) RHEUMATOLOGY FACULTY [address] [place] [address] Lorena Nieto MD - 04/20/2009 10:41 AM PST RHEUMATOLOGY NEW PATIENT CONSULT This consultation was requested by: LYLE MYERS [facility] [address] [place] [address] fax: [phone] CC: Chief Complaint Patient presents with New patient consultation HPI: This is a 59 y.o. female, here for consultation from Lyle Myers MD regarding diagnosis of Rheumatoid Arthritis. 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 Was treated with methotrexate up to 7 tabs and told to decrease to 6 tabs due to bloodtests. Has had pain in hands, knees, feet. Was n ever on sulfasalazine or hydroxychloroquine. Patient was more recently seen by Dr Henderson in [facility]. At one point was diagnosed with Fibromyalgia. Was on Enbrel in 2007 and she tells me she did not notice change but was told to keep taking it. Still had swelling during year she was on it. Had problems with insurance and so no longer taking it for over a year. Curr ently taking celebrex. In anticipation of visit to [facility] in [place] methotrexate 6 tabs in 03/01 [...] rheumatology notes do not note synovitis (only SANDWICH COUNTER ATTENDANT note). Reports she had bloodclot in her [...] Arthritis dx in 1997, presented to [facility] in 2009. She has been on methotrexate [...] LORENA VALERIO MD RHEUMATOLOGY FELLOWS [address] [facility] Mailcode: [id number] [facility] [place] [address] documented in this e ncounter Plan of [...] | | | | | No organisms seen. | | | | | | Culture: | | | | | | Final Report: No | | | | | | growth after 3 days. | | | | | | No anaerobes isolated | | | | | | Final Report | | | | + + + + + + + + | Specimen | + + | Synovial fluid | + + + + + + + | Performing | Address | City/State/Zipcode | Phone Number | | Organization | | | | + + + + + | [facility] | [address] | [place] [address] | | | LAB-MICRO | | | [...] + + + + + | [facility] DEPARTMENT OF | [address] | [place] [address] | | | PATHOLOGY | [address] [...] + + + + + | [facility] DEPARTMENT OF | [address] | [place] [address] | | | PATHOLOGY | [address] [...] + + + + | RBC | [address] | /cu mm | [facility] | | [...] | + + + + + | [facility] | [address] | [place] [address] | | | PATHOLOGY | [address] | | | + + + + + documented in this encounter Visit Diagnoses + + | Diagnosis | + + | Arthralgia - Primary Pain in joint, site unspecified | + + documented in this encounter"
--- OUTSIDE RECORDS SUMMARY | ~2019-09-06 | XMS | Encounter Summary ---
Demographics + + + | Address | [address] | | | [place] [address] | + + + | Home Phone | | + + + | Preferred Language | Unknown | + + + | Marital Status | | + + + | Yarsani Affiliation | CATRACHITO | + + + | Race | or | + + + | Ethnic Group | Not or | + + + Author + + + | Author | [facility] | + + + | Organization | [facility] | + + + | Address | Unknown | + + + | Phone | Unavailable | + + + Support + + +---------+ + | Name | Relationship | Address | Phone | + + +---------+ + | Isaias Salas | ECON | Unknown | | + + +---------+ + Care Team Providers + +------+ + | Care Component Prep Operator Name | Role | Phone | [...] | +--------+ + + + + | 07/29/ | Documentati | Rheumatology at | Yolanda Contreras, | Test Results | | 2010 | on | [address] [facility] | | | | | | [address] | | | | | | [address] | | | | | | Pavilion, 4th Floor | | | | | | [place], [place] | | | | | | [address] | | | | | | [phone] | | | +--------+ + + + [...]
--- OUTSIDE RECORDS SUMMARY | ~2019-09-06 | XMS | Encounter Summary ---
Demographics + + + | Address | [address] | | | [place] [address] | + + + | Home Phone | | + + + | Preferred Language | Unknown | + + + | Marital Status | | + + + | Mandaen Affiliation | CATRACHITO | + + + | Race | or | + + + | Ethnic Group | Not or | + + + Author + + + | Author | [facility] | + + + | Organization | [facility] | + + + | Address | Unknown | + + + | Phone | Unavailable | + + + Support + + +---------+ + | Name | Relationship | Address | Phone | + + +---------+ + | Isaias Salas | ECON | Unknown | | + + +---------+ + Care Team Providers + +------+ + | Care Research Asst Name | Role | Phone | + [...] | Center at [facility] [address] | MD [address] | | | | | [address] [place] | [place], [place] | | | | | for Health and | [address] | | | | | Healing, Building [address] | [phone] | | | | | [place], [place] | | | | | | [address] | | | | | | [phone] | | | +--------+ + + + [...]
--- OUTSIDE RECORDS SUMMARY | ~2019-09-06 | XMS | Encounter Summary ---
Demographics + + + | Address | [address] | | | [place] [address] | + + + | Home Phone [...] + + | Author | [facility] | + + + | Organization | [facility] | + + + | Address | Unknown | + + + | Phone | Unavailable | + + + Support + + +---------+ + | Name | Relationship | Address | Phone | + + +---------+ + | Isaias Salas | ECON | Unknown | | + + +---------+ + Care Team Providers + +------+ + | Care Refueling Ramp Supervisor Name | Role | Phone | [...] | Center at [facility] [address] | MD [address] | | | | | [address] [place] | [place], [place] | | | | | for Health and | [address] | | | | | Healing, Building [address] | [phone] | | | | | [place], [place] | | | | | | [address] | | | | | | [phone] | | | +--------+ + + + [...]
--- OUTSIDE RECORDS SUMMARY | ~2019-09-06 | XMS | Encounter Summary ---
Demographics + + + | Address | [address] | | | [place] [address] | + + + | Home Phone [...] + + | Author | [facility] | + + + | Organization | [facility] | + + + | Address | Unknown | + + + | Phone | Unavailable | + + + Support + + +---------+ + | Name | Relationship | Address | Phone | + + +---------+ + | Isaias Salas | ECON | Unknown | | + + +---------+ + Care Team Providers + +------+ + | Care Eeg Technologist Name | Role | Phone | + [...] | Center at [facility] [address] | MD [address] | | | | | [address] [place] | [place], [place] | | | | | for Health and | [address] | | | | | Healing, Building [address] | [phone] | | | | | [place], [place] | | | | | | [address] | | | | | | [phone] | | | +--------+ + + + [...]
--- OUTSIDE RECORDS SUMMARY | ~2019-09-06 | XMS | Encounter Summary ---
Demographics + + + | Address | [address] | | | [place] [address] | + + + | Home Phone | | + + + | Preferred Language | Unknown | + + + | Marital Status | | + + + | Adventist Affiliation | CATRACHITO | + + + | Race | or | + + + | Ethnic Group | Not or | + + + Author + + + | Author | [facility] | + + + | Organization | [facility] | + + + | Address | Unknown | + + + | Phone | Unavailable | + + + Support + + +---------+ + | Name | Relationship | Address | Phone | + + +---------+ + | Isaias Salas | ECON | Unknown | | + + +---------+ + Care Team Providers + +------+ + | Care Regional Owner Operator Truck Driver Name | Role | Phone [...] | Center at [facility] [address] | MD [address] | | | | | [address] [place] | [place], [place] | | | | | for Health and | [address] | | | | | Healing, Building [address] | [phone] | | | | | [place], [place] | | | | | | [address] | | | | | | [phone] | | | +--------+ + + + [...]
--- OUTSIDE RECORDS SUMMARY | ~2019-09-06 | XMS | Encounter Summary ---
Demographics + + + | Address | [address] | | | [place] [address] | + + + | Home Phone [...] [facility] | + + + | Organization | [facility] | [...] Team Providers + +------+ + | Care Foot Doctor Name | Role | Phone | + [...] Floor | | | | | | [place], [place] | | | | | | [address] | | | | | | [phone] | | | +--------+---------+ + + + [...]
--- OUTSIDE RECORDS SUMMARY | ~2019-09-06 | XMS | Encounter Summary ---
Demographics + + + | Address | [address] | | | [place] [address] | + + + | Home Phone | | + + + | Preferred Language | Unknown | + + + | Marital Status | | + + + | Spiritism Affiliation | CATRACHITO | + + + | Race | or | + + + | Ethnic Group | Not or | + + + Author + + + | Author | [facility] | + + + | Organization | [facility] | + + + | Address | Unknown | + + + | Phone | Unavailable | + + + Support + + +---------+ + | Name | Relationship | Address | Phone | + + +---------+ + | Isaias Salas | ECON | Unknown | | + + +---------+ + Care Team Providers + +------+ + | Care Tariff Counsel Name | Role | Phone | + [...] | Center at [facility] [address] | MD [address] | | | | | [address] [place] | [place], [place] | | | | | for Health and | [address] | | | | | Healing, [address] | [phone] | | | | | [place], [place] | | | | | | [address] | | | | | | [phone] | | | +--------+ + + + [...]
--- OUTSIDE RECORDS SUMMARY | ~2019-09-06 | XMS | Encounter Summary ---
Demographics + + + | Address | [address] | | | [place] [address] | + + + | Home Phone | | + + + | Preferred Language | Unknown | + + + | Marital Status | | + + + | Gnosticism Affiliation | CATRACHITO | + + + | Race | or | + + + | Ethnic Group | Not or | + + + Author + + + | Author | [facility] | + + + | Organization | [facility] | + + + | Address | Unknown | + + + | Phone | Unavailable | + + + Support + + +---------+ + | Name | Relationship | Address | Phone | + + +---------+ + | Isaias Salas | ECON | Unknown | | + + +---------+ + Care Team Providers + +------+ + | Care Die Cutter Operator Name | Role | Phone | [...] (Primary | | 2010 | Visit | [facility] | | Dx) | | | | [address] | | | | | | [address] [facility] | | | | | | [address], [address]th Floor | | | | | | [place], [place] | | | | | | [address] | | | | | | [phone] | | | +--------+---------+ + + + [...] information with Jackie here at the front end alignment specialist. Anahy Contreras MD documented in this encounter [...] of care. 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 No problem [...] she carries dx of rheumatoid arthritis, tho [facility] currently without evidence of active synovitis and [...] minutes wit h the patient in a [id number] meeting and >50% time was spent in medically indicated couns eling, and education. I have also answered all the questions raised. The history, findings and treatment plan that I have documented were reviewed with the [facility] physician at the time of this encounter. Dr. Murphy agrees that my assessment plan and ser vices provided are appropriate. GURPREET CONTRERAS MD RHEUMATOLOGY FELLOWS [address] [place] [address] Mailcode: [id number] [facility] [address] documented in this en counter Plan of [...]
--- OUTSIDE RECORDS SUMMARY | ~2019-09-06 | XMS | Encounter Summary ---
Demographics + + + | Address | [address] | | | [place] [address] | + + + | Home Phone [...] + + | Author | [facility] | + + + | Organization | [facility] | + + + | Address | Unknown | + + + | Phone | Unavailable | + + + Support + + +---------+ + | Name | Relationship | Address | Phone | + + +---------+ + | Isaias Salas | ECON | Unknown | | + + +---------+ + Care Team Providers + +------+ + | Care Rehabilitation Aide/Scheduler Name | Role | Phone | + [...] Floor | | | | | | [place], [place] | | | | | | [address] | | | | | | [phone] | | | +--------+---------+ + + + [...]
--- OUTSIDE RECORDS SUMMARY | ~2019-09-06 | XMS | Encounter Summary ---
Demographics + + + | Address | [address] | | | [place] [address] | + + + | Home Phone | | + + + | Preferred Language | Unknown | + + + | Marital Status | | + + + | Faith Affiliation | CATRACHITO | + + + | Race | or | + + + | Ethnic Group | Not or | + + + Author + + + | Author | [facility] | + + + | Organization | [facility] | + + + | Address | Unknown | + + + | Phone | Unavailable | + + + Support + + +---------+ + | Name | Relationship | Address | Phone | + + +---------+ + | Isaias Salas | ECON | Unknown | | + + +---------+ + Care Team Providers + +------+ + | Care Surgical Instrument Maker Name | Role | Phone | + [...] | Center at [facility] [address] | MD [address] | | | | | [address] [place] | [place], [place] | | | | | for Health and | [address] | | | | | Healing, [address] | [phone] | | | | | [place], [place] | | | | | | [address] | | | | | | [phone] | | | +--------+ + + + [...]
--- OUTSIDE RECORDS SUMMARY | ~2019-09-06 | XMS | Encounter Summary ---
Demographics + + + | Address | [address] | | | [place] [address] | + + + | Home Phone | | + + + | Preferred Language | Unknown | + + + | Marital Status | | + + + | Baptism Affiliation | CATRACHITO | + + + | Race | or | + + + | Ethnic Group | Not or | + + + Author + + + | Author | [facility] | + + + | Organization | [facility] | + + + | Address | Unknown | + + + | Phone | Unavailable | + + + Support + + +---------+ + | Name | Relationship | Address | Phone | + + +---------+ + | Isaias Salas | ECON | Unknown | | + + +---------+ + Care Team Providers + +------+ + | Care Airplane Flight Attendant Supervisor Name | Role | Phone | [...] Floor | | | | | | [place], [place] | | | | | | [address] | | | | | | [phone] | | | +--------+---------+ + + + [...] doctor's information with Jackie here at the patient coordinator front desk. Anahy Contreras MD documented in this encounter [...] of care. 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 No problem [...] she carries dx of rheumatoid arthritis, tho [facility] currently without evidence of active [...] minutes wit h the patient in a [id number] meeting and >50% time was spent in medically indicated couns eling, and education. I have also answered all the questions raised. The history, findings and treatment plan that I have documented were reviewed with the [facility] physician at the time of this encounter. Dr. Murphy agrees that my assessment plan and ser vices provided are appropriate. GURPREET CONTRERAS MD RHEUMATOLOGY FELLOWS [address] [place] [address] Mailcode: [id number] [facility] [address] documented in this en counter Plan of [...]
--- OUTSIDE RECORDS SUMMARY | ~2019-09-06 | XMS | Encounter Summary ---
Demographics + + + | Address | [address] | | | [place] [address] | + + + | Home Phone [...] + + | Author | [facility] | + + + | Organization | [facility] | + + + | Address | Unknown | + + + | Phone | Unavailable | + + + Support + + +---------+ + | Name | Relationship | Address | Phone | + + +---------+ + | Isaias Salas | ECON | Unknown | | + + +---------+ + Care Team Providers + +------+ + | Care Irish Moss Operator Name | Role | Phone | + +------+ + | Jairon Siegel | PCP | | + +------+ + Reason for Visit + + + | Reason | Comments | + + + | Medical Records | [facility] - OUTSIDE RECORD: Chart note 11/25/2013 | | Review | | + + + Encounter Details +--------+ + + + + | Date | Type | Department | Care Team | Description | +--------+ + + + + | 12/06/ | Abstract | Digestive Health | Lucille De La Rosa, | Medical Records | | 2013 | | Center at [facility] [address] | [address] | Review ([facility] - | | | | [facility] | [place], [place] | OUTSIDE RECORD: | | | | for Health and | [address] | Chart note | | | | [facility], [facility] [address] | [phone] | 11/25/2013) | | | | [place], [place] | | | | | | [address] | | | | | | [phone] | | | +--------+ + + + [...]
--- OUTSIDE RECORDS SUMMARY | ~2019-09-06 | XMS | Clinical Summary ---
Demographics + + + | Address | [address] | | | [place] [address] | + + + | Home Phone [...] Team Providers + +------+ + | Care Auto Specialty Services Manager Name | Role | Phone | + +------+ + | Jairon Siegel | PCP | | + +------+ + Source Comments AGATA is fully live on both EpicCare Ambulatory and EpicCare InPatient.[facility] Allergies + + + + + + [...] PLUS | | 14-Pre | 6 | [address] | id | | | OPEN | | sent | | [place], [place] | | | | CARD | | | | [id number] | | + +--------+ +--------+ + +--------+ | [facility] | | [email or web address] | Effect | [...] Person | Self | [birth year] | [address] | | | al/Fam | | 1950 | [phone] | [place] [address] | | | rubens | | | 7 (Home) | | + +--------+ +--------+ + + | Trudy Salas | Agency | Self | [birth year] | | [address] | | | | | 1949 | [address] | [place] [address] | | | | | | 7 ([place]) | | + +--------+ +--------+ + + Advance Directives + + + + + | Type | Date Recorded | Patient | Explanation | | | | Crane Operator Cab | | + + + + + | Advance | | | | | Directives and | | | | | Living Will | | | | + + + + + | Power of | | | | | Warehouse Insulation Worker | | | | + + + [...]
--- OUTSIDE RECORDS SUMMARY | ~2019-09-06 | XMS | Encounter Summary ---
Demographics + + + | Address | [address] | | | [place] [address] | + + + | Home Phone | | + + + | Preferred Language | Unknown | + + + | Marital Status | | + + + | Oriental Orthodox Affiliation | CATRACHITO | + + + | Race | or | + + + | Ethnic Group | Not or | + + + Author + + + | Author | [facility] | + + + | Organization | [facility] | + + + | Address | Unknown | + + + | Phone | Unavailable | + + + Support + + +---------+ + | Name | Relationship | Address | Phone | + + +---------+ + | Isaias Salas | ECON | Unknown | | + + +---------+ + Care Team Providers + +------+ + | Care Mechanical Fitter Name | Role | Phone | [...] Zack | | | | | | [address] | | | | | | [address] [facility] | | | | | | Pavilion, 4th Floor | | | | | | [place], [place] | | | | | | [address] | | | | | | [phone] | | | +--------+ + + + [...]
--- OUTSIDE RECORDS SUMMARY | ~2019-09-06 | XMS | Encounter Summary ---
Demographics + + + | Address | [address] | | | [place] [address] | + + + | Home Phone [...] + + + | Author | [facility] | + + + | Organization | [facility] | + + + | Address | Unknown | + + + | Phone | Unavailable | + + + Support + + +---------+ + | Name | Relationship | Address | Phone | + + +---------+ + | Isaias Salas | ECON | Unknown | | + + +---------+ + Care Team Providers + +------+ + | Care Neon Light Installer Name | Role | Phone | [...] 12/14/ | Telephone | Rheumatology at | Yolanda Contreras, | Schedule labs | | 2010 | | Physicians Zack Huynh MD | | | | | [address] | | | | | | [facility] | | | | | | Zack, 4th Floor | | | | | | [place], [place] | | | | | | [address] | | | | | | [phone] | | | +--------+ + + + [...]
--- OUTSIDE RECORDS SUMMARY | ~2019-09-06 | XMS | Clinical Summary ---
Demographics + + + | Address | [address] | | | [place] [address] | + + + | Home Phone [...] Author + + + | Author | [facility] | | | and Emir | + + + | Organization | [facility] | | | and [place] | + + + | Address | Unknown | + + + | Phone | Unavailable | + + + Care Team Providers + +------+ + | Care Career Information Specialist Name | Role | Phone | + +------+ + PCP | Unavailable | + +------+ + Allergies [...] on file | | + + + Last Filed Vital Signs Not on file Plan of Treatment + + +-------+ + | Health Maintenance | Due Date | Last | Comments | | | | Done | | + + +-------+ + | Vaccine: | | | | | Dtap/Tdap/Td (1 - | 8 | | | | Tdap) | | | | + + +-------+ + | Vaccine: Zoster (1 | | | | | of 2) | 9 | | | + + +-------+ + | Breast Cancer | | | | | Screening | 4 | | | + + +-------+ + | Vaccine: | | | | | Pneumococcal 65+ (1 | 4 | | | | of 1 - PPSV23) | | | | + + +-------+ + | Vaccine: Influenza | | | | | (#1) | 0 | | | + + +-------+ + Results Not on filefrom Last 3 Months"
--- OUTSIDE RECORDS SUMMARY | ~2019-09-06 | XMS | Encounter Summary ---
Demographics + + + | Address | [address] | | | [place] [address] | + + + | Home Phone [...] Author | [facility] | + + + | Organization | [facility] | + + + | Address | Unknown | + + + | Phone | Unavailable | + + + Support + + +---------+ + | Name | Relationship | Address | Phone | + + +---------+ + | Isaias Salas | ECON | Unknown | | + + +---------+ + Care Team Providers + +------+ + | Care Refrigerating Technician Name | Role | Phone | [...] + + + + | 12/21/ | Solutions Consultant | Rheumatology at | Yolanda Contreras, | Arthralgia (Primary | | 2010 | | Physicians Zack | | Dx) | | | | [address] | | | | | | Loop [facility] | | | | | | Zack, 4th Floor | | | | | | [place], [place] | | | | | | [address] | | | | | | [phone] | | | +--------+ + + + [...]
--- OUTSIDE RECORDS SUMMARY | ~2019-09-06 | XMS | Encounter Summary ---
Demographics + + + | Address | [address] | | | [place] [address] | + + + | Home Phone [...] Author | [facility] | + + + | Organization | [facility] | + + + | Address | Unknown | + + + | Phone | Unavailable | + + + Support + + +---------+ + | Name | Relationship | Address | Phone | + + +---------+ + | Isaias Salas | ECON | Unknown | | + + +---------+ + Care Team Providers + +------+ + | Care Machine Fur Cleaner Name | Role | Phone | + [...] Floor | | | | | | [place], [place] | | | | | | [address] | | | | | | [phone] | | | +--------+ + + + [...]
--- OUTSIDE RECORDS SUMMARY | ~2019-09-06 | XMS | Encounter Summary ---
Demographics + + + | Address | [address] | | | [place] [address] | + + + | Home Phone | | + + + | Preferred Language | Unknown | + + + | Marital Status | | + + + | Zoroastrian Affiliation | CATRACHITO | + + + | Race | or | + + + | Ethnic Group | Not or | + + + Author + + + | Author | [facility] | + + + | Organization | [facility] | + + + | Address | Unknown | + + + | Phone | Unavailable | + + + Support + + +---------+ + | Name | Relationship | Address | Phone | + + +---------+ + | Isaias Salas | ECON | Unknown | | + + +---------+ + Care Team Providers + +------+ + | Care Oncology Social Work Name | Role | Phone | + [...] | | | | | | Zack, [facility] Floor | | | | | | [place], [place] | | | | | | [address] | | | | | | [phone] | | | +--------+ + + + [...]
--- OUTSIDE RECORDS SUMMARY | ~2019-09-06 | XMS | Encounter Summary ---
Demographics + + + | Address | [address] | | | [place] [address] | + + + | Home Phone | | + + + | Preferred Language | Unknown | + + + | Marital Status | | + + + | Yarsanism Affiliation | CATRACHITO | + + + | Race | or | + + + | Ethnic Group | Not or | + + + Author + + + | Author | [facility] | + + + | Organization | [facility] | + + + | Address | Unknown | + + + | Phone | Unavailable | + + + Support + + +---------+ + | Name | Relationship | Address | Phone | + + +---------+ + | Isaias Salas | ECON | Unknown | | + + +---------+ + Care Team Providers + +------+ + | Care Heel Seat Flap Stapler Name | Role | Phone | + [...] | | 2013 | | Center at [facility] [address] | MD [address] | Scheduling | | | | [address] | [place], [place] | | | | | for Health and | [address] | | | | | [facility] 2 | [phone] | | | | | [place], [place] | | | | | | [address] | | | | | | [phone] | | | +--------+ + + + [...]
--- OUTSIDE RECORDS SUMMARY | ~2019-09-06 | XMS | Encounter Summary ---
Demographics + + + | Address | [address] | | | [place] [address] | + + + | Home Phone [...] + + | Author | [facility] | + + + | Organization | [facility] | + [...] Team Providers + +------+ + | Care Lottery Office Manager Name | Role | Phone | [...] 08/16/ | Telephone | Digestive Health | RjLucille W, | Appointment | | 2013 | | Center at [facility] [address] | MD [address] | | | | | [address] | [place], [place] | | | | | for Health and | [address] | | | | | [facility] 2 | [phone] | | | | | [place], [place] | | | | | | [address] | | | | | | [phone] | | | +--------+ + + + [...]
--- OUTSIDE RECORDS SUMMARY | ~2019-09-06 | XMS | Encounter Summary ---
Demographics + + + | Address | [address] | | | [place] [address] | + + + | Home Phone | | + + + | Preferred Language | Unknown | + + + | Marital Status | | + + + | Baptist Affiliation | CATRACHITO | + + + | Race | or | + + + | Ethnic Group | Not or | + + + Author + + + | Author | [facility] | + + + | Organization | [facility] | + + + | Address | Unknown | + + + | Phone | Unavailable | + + + Support + + +---------+ + | Name | Relationship | Address | Phone | + + +---------+ + | Isaias Salas | ECON | Unknown | | + + +---------+ + Care Team Providers + +------+ + | Care Motion Pictures Cartoonist Name | Role | Phone | + [...] [address] | [place], | | | | | Mailcode: [id number] | [place] [address] | | | | | [place], [place] | | | | | | [address] | | | | | | [phone] | | | +--------+ + + + [...]
--- OUTSIDE RECORDS SUMMARY | ~2019-09-06 | XMS | Encounter Summary ---
Demographics + + + | Address | [address] | | | [place] [address] | + + + | Home Phone [...] + + | Author | [facility] | + + + | Organization | [facility] | + + + | Address | Unknown | + + + | Phone | Unavailable | + + + Support + + +---------+ + | Name | Relationship | Address | Phone | + + +---------+ + | Isaias Salas | ECON | Unknown | | + + +---------+ + Care Team Providers + +------+ + | Care Director Of Teaching And Learning Name | Role | Phone | + [...] Floor | | | | | | [place], [place] | | | | | | [address] | | | | | | [phone] | | | +--------+---------+ + + + [...] note. DM HALEY MD (ATUL) RHEUMATOLOGY FACULTY [address] [place] [address] Lorena Nieto MD - 04/20/2009 10:41 AM PST RHEUMATOLOGY NEW PATIENT CONSULT This consultation was requested by: LYLE MYERS [facility] [address] [place] [address] fax: [phone] CC: Chief Complaint Patient presents with New patient consultation HPI: This is a 59 y.o. female, here for consultation from Lyle Myers MD regarding diagnosis of Rheumatoid Arthritis. Was diagnosed with RA in 1997 by Studio Engineer. Was treated with methotrexate up to 7 tabs and told to decrease to 6 tabs due to bloodtests. Has had pain in hands, knees, feet. Was n ever on sulfasalazine or hydroxychloroquine. Patient was more recently seen by Dr Henderson in [facility]. At one point was diagnosed with Fibromyalgia. Was on Enbrel in 2007 and she tells me she did not notice change but was told to keep taking it. Still had swelling during year she was on it. Had problems with insurance and so no longer taking it for over a year. Curr ently taking celebrex. In anticipation of visit to [facility] in [place] star [facility]nen methotrexate 6 tabs in 03/01 [...] rheumatology notes do not note synovitis (only DENTURE MODEL MAKER note). Reports she had bloodclot in her [...] toid Arthritis dx in 1997, presented to [facility] in 2009. She has been on methotrexate [...] LORENA VALERIO MD RHEUMATOLOGY FELLOWS [address] [facility] Mailcode: [id number] [facility] [address] documented in this e ncounter Plan of [...] + + + | [facility] | [address] | [place] [address] | | | LAB-MICRO | | | [...] | + + + + + | [facility] DEPARTMENT OF | [address] | [place] [address] | | | PATHOLOGY | [address] [...] | + + + + + | [facility] DEPARTMENT OF | [address] | [place] [address] | | | PATHOLOGY | [address] [...] + + + + | RBC | [address] | /cu mm | [facility] | | [...] + + + + | [facility] | [address] | [place] [address] | | | PATHOLOGY | [address] | | | + + + + + documented in this encounter Visit Diagnoses + + | Diagnosis | + + | Arthralgia - Primary Pain in joint, site unspecified | + + documented in this encounter"
--- OUTSIDE RECORDS SUMMARY | ~2019-09-06 | XMS | Encounter Summary ---
Demographics + + + | Address | [address] | | | [place] [address] | + + + | Home Phone | | + + + | Preferred Language | Unknown | + + + | Marital Status | | + + + | Pentecostal Affiliation | CATRACHITO | + + + | Race | or | + + + | Ethnic Group | Not or | + + + Author + + + | Author | [facility] | + + + | Organization | [facility] | + + + | Address | Unknown | + + + | Phone | Unavailable | + + + Support + + +---------+ + | Name | Relationship | Address | Phone | + + +---------+ + | Isaias Salas | ECON | Unknown | | + + +---------+ + Care Team Providers + +------+ + | Care Heating And Cooling Systems Engineer Name | Role | Phone | [...] Zack | | | | | | [address] | | | | | | Loop Phys[facility]'s | | | | | | Pavilion, 4th Floor | | | | | | [place], [place] | | | | | | [address] | | | | | | [phone] | | | +--------+ + + + [...]
--- OUTSIDE RECORDS SUMMARY | ~2019-09-06 | XMS | Encounter Summary ---
Demographics + + + | Address | [address] | | | [place] [address] | + + + | Home Phone | | + + + | Preferred Language | Unknown | + + + | Marital Status | Unknown | + + + | Anabaptism Affiliation | Unknown | + + + | Race | Unknown | + + + | Ethnic Group | Unknown | + + + Author + + + | Author | [facility] | | | and [place] | + + + | Organization | [facility] | | | and [place] | + + + | Address | Unknown | + + + | Phone | Unavailable | + + + Care Team Providers + +------+ + | Care Waiter/Waitress Formal Name | Role | Phone | + +------+ + PCP | Unavailable | + +------+ + Encounter Details +--------+ + + + + | Date | Type | Department | Care Team | Description | +--------+ + + + + | 08/04/ | Hospital | [facility] | | | | 2006 | Encounter | MED CTR LABORATORY | | | | | | [address] | | | | | | [place] | | | | | | [address] | | | | | | [phone] | | | +--------+ + + + [...] on file | | + + + documented as of this encounter Plan of Treatment Not on filedocumented as of this encounter Visit Diagnoses Not on filedocumented in this encounter"
--- OUTSIDE RECORDS SUMMARY | ~2019-09-06 | XMS | Encounter Summary ---
Demographics + + + | Address | [address] | | | [place] [address] | + + + | Home Phone | | + + + | Preferred Language | Unknown | + + + | Marital Status | | + + + | Pentecostal Affiliation | CATRACHITO | + + + | Race | or | + + + | Ethnic Group | Not or | + + + Author + + + | Author | [facility] | + + + | Organization | [facility] | + + + | Address | Unknown | + + + | Phone | Unavailable | + + + Support + + +---------+ + | Name | Relationship | Address | Phone | + + +---------+ + | Isaias Salas | ECON | Unknown | | + + +---------+ + Care Team Providers + +------+ + | Care Mailroom Coordinator Name | Role | Phone | [...] Zack | | | | | | [address] | | | | | | [facility] | | | | | | Zack, 4th Floor | | | | | | [place], [place] | | | | | | [address] | | | | | | [phone] | | | +--------+ + + + [...]
--- OUTSIDE RECORDS SUMMARY | ~2019-09-06 | XMS | Encounter Summary ---
Demographics + + + | Address | [address] | | | [place] [address] | + + + | Home Phone | | + + + | Preferred Language | Unknown | + + + | Marital Status | | + + + | Pentecostalism Affiliation | CATRACHITO | + + + | Race | or | + + + | Ethnic Group | Not or | + + + Author + + + | Author | [facility] | + + + | Organization | [facility] [...] Team Providers + +------+ + | Care Adult Literacy Teacher Name | Role | Phone | + [...] | Center at [facility] [address] | MD [address] | | | | | [address] [place] | [place], [place] | | | | | for Health and | [address] | | | | | Healing, Building [address] | [phone] | | | | | [place], [place] | | | | | | [address] | | | | | | [phone] | | | +--------+ + + + [...]
--- OUTSIDE RECORDS SUMMARY | ~2019-09-06 | XMS | Encounter Summary ---
Demographics + + + | Address | [address] | | | [place] [address] | + + + | Home Phone | | + + + | Preferred Language | Unknown | + + + | Marital Status | | + + + | Anglican Affiliation | CATRACHITO | + + + | Race | or | + + + | Ethnic Group | Not or | + + + Author + + + | Author | [facility] | + + + | Organization | [facility] | + + + | Address | Unknown | + + + | Phone | Unavailable | + + + Support + + +---------+ + | Name | Relationship | Address | Phone | + + +---------+ + | Isaias Salas | ECON | Unknown | | + + +---------+ + Care Team Providers + +------+ + | Care Family Manager Name | Role | Phone | + +------+ + | No Pcp Per Patient | PCP | Unavailable | + +------+ + Encounter Details +--------+ + + + + | Date | Type | Department | Care Team | Description | +--------+ + + + + | 11/17/ | Abstract | Digestive Health | Clinic, Surgery | | | 2011 | | [place] [address] [address] | | | | | | [facility] | | | | | | for Health and | | | | | | Healing, Building [address] | | | | | | [place], [place] | | | | | | [address] | | | | | | [phone] | | | +--------+ + + + [...]
--- OUTSIDE RECORDS SUMMARY | ~2019-09-06 | XMS | Encounter Summary ---
Demographics + + + | Address | [address] | | | [place] [address] | + + + | Home Phone [...] + + | Author | [facility] | + + + | Organization | [facility] | + + + | Address | Unknown | + + + | Phone | Unavailable | + + + Support + + +---------+ + | Name | Relationship | Address | Phone | + + +---------+ + | Isaias Salas | ECON | Unknown | | + + +---------+ + Care Team Providers + +------+ + | Care Mineral Surveyor Name | Role | Phone | + [...] | | 2012 | | Center at [facility] [address] | [address] | pre surgical | | | | [address] | [place], [place] | anesthesia | | | | for Health and | [address] | evaluation) | | | | [facility] 2 | [phone] | | | | | [place], [place] | | | | | | [address] | | | | | | [phone] | | | +--------+ + + + [...]
--- OUTSIDE RECORDS SUMMARY | ~2019-09-06 | XMS | Encounter Summary ---
Demographics + + + | Address | [address] | | | [place] [address] | + + + | Home Phone [...] + + | Author | [facility] | + + + | Organization | [facility] | + + + | Address | Unknown | + + + | Phone | Unavailable | + + + Support + + +---------+ + | Name | Relationship | Address | Phone | + + +---------+ + | Isaias Salas | ECON | Unknown | | + + +---------+ + Care Team Providers + +------+ + | Care Barnworker Groom Name | Role | Phone | + [...] | | 2013 | | Center at [facility] [address] | MD [address] | | | | | [address] | [place], [place] | | | | | for Health and | [address] | | | | | [facility] [address] | [phone] | | | | | [place], [place] | | | | | | [address] | | | | | | [phone] | | | +--------+ + + + [...]
--- OUTSIDE RECORDS SUMMARY | ~2019-09-06 | XMS | Encounter Summary ---
Demographics + + + | Address | [address] | | | [place] [address] | + + + | Home Phone [...] + | Author | [facility] | + + + | Organization | [facility] [...] Team Providers + +------+ + | Care Sourcing Specialist Name | Role | Phone | [...] Huynh MD | | | | | [address] | | | | | | [facility] | | | | | | [place], [address] | | | | | | [place], [place] | | | | | | [address] | | | | | | [phone] | | | +--------+ + + + [...]
--- OUTSIDE RECORDS SUMMARY | ~2019-09-06 | XMS | Encounter Summary ---
Demographics + + + | Address | [address] | | | [place] [address] | + + + | Home Phone [...] [facility] | + + + | Organization | [facility] | + + + | Address | Unknown | + + + | Phone | Unavailable | + + + Support + + +---------+ + | Name | Relationship | Address | Phone | + + +---------+ + | Isaias Salas | ECON | Unknown | | + + +---------+ + Care Team Providers + +------+ + | Care Quality Assurance Supervisor Final Name | Role | Phone | + [...] at [facility] [address] | [address] | Review (CT abdomen/ | | | | [facility] | [place], [place] | pelvis 08/16/13 and | | | | for Health and | [address] | 12/13/12) | | | | [facility], [address] | [phone] | | | | | [place], [place] | | | | | | [address] | | | | | | [phone] | | | +--------+ + + + [...] - 09/24/2013 3:34 PM PDTImages viewable in [employer]. documented in this encounter Plan of Treatment Not on filedocumented as of this encounter Visit Diagnoses Not on filedocumented in this encounter"
[~2019-09-06 22:34] MED LIST changes: +LASIX20 MG PO
--- OUTSIDE RECORDS SUMMARY | 2019-09-06 22:36 | XMS ---
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 Franco VISIT COUNT (12 MO.) 1 BRYAN Loredo TOTAL 1 NOTE: Visits indicate total known visits. ED/UCC VISIT TRACKING (12 MO.) 09/06/2019 22:34 BR[place]AN [place] TYPE: Emergency COMPLAINT: - ABD PAIN INPATIENT VISIT TRACKING (12 MO.) No inpatient visits to display in this time frame [email or web address]
== END 2019-09-07 01:16 | disposition home or self-care (01) ==
LOC: ED 22:34
DX: R10.9 Unspecified abdominal pain (principal); F17.200 Nicotine dependence, unspecified, uncomplicated; Z88.8 Allergy status to other drugs, medicaments and biological substances; Z88.0 Allergy status to penicillin; Z88.5 Allergy status to narcotic agent; Z88.6 Allergy status to analgesic agent
CPT/HCPCS: 74177; 80053; 81001; 83690; 83735; 85025; 99284-25; Q9967

== ENCOUNTER 2021-03-20 21:07 | Emergency (ER) | payer MEDICARE, OTHER ==
[~2021-03-20] VITALS: Ht 165.1 cm; Wt 95.7 kg
--- OUTSIDE RECORDS SUMMARY | 2021-03-20 21:10 | XMS ---
PreManage Notification: RONI URIBE Security Bilingual Loan Processor Events No recent Security Events currently on file CRITERIA MET - Group Notification - PDMP CARE PROVIDERS ANA LOPEZ Physician 09/01/2017-Current PHONE: Unknown Dane has no Care Guidelines for this patient. Franco VISIT COUNT (12 MO.) 1 BRYAN [place]ored[place] TOTAL 1 NOTE: Visits indicate total known visits. ED/UCC VISIT TRACKING (12 MO.) 03/20/2021 21:07 [place] [place] TYPE: Emergency COMPLAINT: - N/V, ABD PAIN INPATIENT VISIT TRACKING (12 MO.) No inpatient visits to display in this time frame [email or web address]
[2021-03-20] MEDS ORDERED: HYDROCHLOROTH12.5 M1 PO (21:27)
[2021-03-20] MEDS ORDERED: BUPRENORPHIN-N1 EACH SL (21:27)
[2021-03-20] MEDS ORDERED: LEVOTHYROXINE25 MCG PO (21:27)
[2021-03-20] MEDS ORDERED: LISINOPRIL10 MG PO (21:27)
[2021-03-20] MEDS ORDERED: ANTI-GAS180 MG PO (22:34)
[2021-03-20] MEDS ORDERED: COLACE100 MG PO (22:34)
== END 2021-03-20 22:55 | disposition home or self-care (01) ==
LOC: ED 21:07
DX: K59.00 Constipation, unspecified (principal); R14.0 Abdominal distension (gaseous); E03.9 Hypothyroidism, unspecified; Z86.73 Personal history of transient ischemic attack (TIA), and cerebral infarction without residual deficits; Z85.41 Personal history of malignant neoplasm of cervix uteri; F17.200 Nicotine dependence, unspecified, uncomplicated; Z88.0 Allergy status to penicillin; Z88.5 Allergy status to narcotic agent; Z88.8 Allergy status to other drugs, medicaments and biological substances; Z79.890 Hormone replacement therapy; Z79.899 Other long term (current) drug therapy
CPT/HCPCS: 74018; 80053; 81001; 83690; 85025; 99284-25

== ENCOUNTER 2021-07-24 21:02 | Emergency (ER) | payer MEDICARE, OTHER ==
[~2021-07-24] VITALS: Ht 165.1 cm; Wt 95.7 kg
[~2021-07-24 21:02] MED LIST changes: +ANTI-GAS180 MG PO; +BUPRENORPHIN-N1 EACH SL; +COLACE100 MG PO; +HYDROCHLOROTH12.5 M1 PO; +LEVOTHYROXINE25 MCG PO; +LISINOPRIL10 MG PO
--- OUTSIDE RECORDS SUMMARY | 2021-07-24 21:04 | XMS ---
PreManage Notification: RONI URIBE Security Viscosity Worker Events No recent Security Events currently on file CRITERIA MET - Group Notification - [facility] - Has Care Guidelines - PDMP CARE PROVIDERS ANA LOPEZ Physician 09/01/2017-[facility] PHONE: Unknown [facility] 03/22/2021-[facility] PHONE: [phone] Dane has no Care Guidelines for this patient. Care History Medical/Surgical 03/22/2021 [facility] - PATIENT IS [place] ELIGIBLE, \T\middot;\T\nbsp; PLEASE REFER PATIENT TO [facility] FOR NON EMERGENT MEDICAL NEEDS. \T\middot;\T\nbsp; [facility] CAN SEE PATIENTS SAME DAY FOR APTS IF PATIENT CALLS FIRST THING IN THE MORNING. E.D. VISIT COUNT (12 MO.) 2 BRYAN Loredo TOTAL 2 NOTE: Visits indicate total known visits. ED/UCC VISIT TRACKING (12 MO.) 07/24/2021 21:03 [facility] [place] TYPE: Emergency COMPLAINT: - ABD PAIN 03/20/2021 21:07 [facility] [place] TYPE: Emergency COMPLAINT: - N/V, ABD PAIN DIAGNOSES: - Unspecified abdominal pain - Allergy status to other drugs, medicaments and biological substances - Constipation, unspecified - Personal history of malignant neoplasm of cervix uteri - Abdominal distension (gaseous) - Personal history of transient ischemic attack (TIA), and cerebral infarction without residual deficits - Nicotine dependence, unspecified, uncomplicated - Allergy status to narcotic agent - Hormone replacement therapy - Other oysterman (current) drug therapy - Allergy status to penicillin - Hypothyroidism, unspecified INPATIENT VISIT TRACKING (12 MO.) No inpatient visits to display in this time frame [id number]
== END 2021-07-25 00:43 | disposition home or self-care (01) ==
LOC: ED 21:02
DX: R10.9 Unspecified abdominal pain (principal); F17.200 Nicotine dependence, unspecified, uncomplicated; E03.9 Hypothyroidism, unspecified; Z88.8 Allergy status to other drugs, medicaments and biological substances; Z88.0 Allergy status to penicillin; Z88.5 Allergy status to narcotic agent; Z79.899 Other long term (current) drug therapy
CPT/HCPCS: 36415; 74177; 80053; 81001; 83690; 83735; 85025; 96375; 99284-25; A9270; J1170; J2550; Q9967

== ENCOUNTER 2021-11-27 11:24 | Emergency (ER) | payer MEDICARE, OTHER ==
[~2021-11-27] VITALS: Ht 165.1 cm; Wt 95.7 kg
--- OUTSIDE RECORDS SUMMARY | 2021-11-27 11:26 | XMS ---
PreManage Notification: RONI URIBE Security X Ray Inspector Events No recent Security Events currently on file CRITERIA MET - Group Notification - PDMP - [facility] - Has Care Guidelines CARE PROVIDERS ANA LOPEZ Physician 09/01/2017-[facility] PHONE: Unknown [facility] 03/22/2021-[facility] PHONE: [phone] Dane has no Care Guidelines for this patient. Care History Medical/Surgical 03/22/2021 [facility] - PATIENT IS [place] ELIGIBLE, \T\middot;\T\nbsp; PLEASE REFER PATIENT TO [facility] FOR NON EMERGENT MEDICAL NEEDS. \T\middot;\T\nbsp; [facility] CAN SEE PATIENTS SAME DAY FOR APTS IF PATIENT CALLS FIRST THING IN THE MORNING. E.D. VISIT COUNT (12 MO.) 3 BRYAN Loredo TOTAL 3 NOTE: Visits indicate total known visits. 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 - Unspecified abdominal pain - Nicotine dependence, unspecified, uncomplicated 03/20/2021 21:07 [facility] [place] TYPE: Emergency COMPLAINT: - N/V, ABD PAIN DIAGNOSES: - Abdominal distension (gaseous) - Hypothyroidism, unspecified - Constipation, unspecified - Other terminal operator (current) drug therapy - Unspecified abdominal pain - Allergy status to narcotic agent - Personal history of transient ischemic attack (TIA), and cerebral infarction without residual deficits - Personal history of malignant neoplasm of cervix uteri - Allergy status to penicillin - Allergy status to other drugs, medicaments and biological substances - Hormone replacement therapy - Nicotine dependence, unspecified, uncomplicated INPATIENT VISIT TRACKING (12 MO.) No inpatient visits to display in this time frame [id number]
[2021-11-27] MEDS ORDERED: SYMBICORT 80-10.2 GM INH (11:35)
--- NOTE | 2021-11-28 17:28 | EKG ---
[facility] [address] [place] [address] Signed Normal sinus rhythm Inferior infarct , age undetermined Abnormal ECG When compared with ECG of 31-AUG-2017 17:28, Inferior infarct is now present Confirmed by Pranav Pulliam MD () on 11/28/2021 5:28:39 PM Electronically Signed By: PRANAV PULLIAM MD 11/28/21 1728 PATIENT NAME: RONI URIBE Electrocardiogram DATE OF : 48 PHYSICIAN: PRANAV PULLIAM MD REPORT #: [id number] REPORT IS CONFIDENTIAL AND NOT TO BE RELEASED WITHOUT AUTHORIZATION
== END 2021-11-27 13:16 | disposition home or self-care (01) ==
LOC: ED 11:24
DX: R07.9 Chest pain, unspecified (principal); E87.6 Hypokalemia; E03.9 Hypothyroidism, unspecified; F17.200 Nicotine dependence, unspecified, uncomplicated; Z88.8 Allergy status to other drugs, medicaments and biological substances; Z88.0 Allergy status to penicillin; Z88.5 Allergy status to narcotic agent; Z79.899 Other long term (current) drug therapy
CPT/HCPCS: 36415; 71045; 80053; 84484; 85025; 93005; 93010; 99285-25; A9270

== ENCOUNTER 2021-12-25 04:08 | Emergency (ER) | payer MEDICARE, OTHER ==
[~2021-12-25] VITALS: Ht 162.6 cm; Wt 102.2 kg
[~2021-12-25 04:08] MED LIST changes: +SYMBICORT 80-10.2 GM INH
--- OUTSIDE RECORDS SUMMARY | 2021-12-25 04:13 | XMS ---
PreManage Notification: RONI URIBE Security Head Knitting Machine Fixer Events No recent Security Events currently on file CRITERIA MET - Group Notification - [facility] - 2 Visits in 30 Days - PDMP - [facility] - Has Care Guidelines CARE PROVIDERS ANA LOPEZ Physician 09/01/2017-[facility] PHONE: Unknown [facility] 03/22/2021-[facility] PHONE: [phone] Dane has no Care Guidelines for this patient. Care History Medical/Surgical 03/22/2021 [facility] - PATIENT IS [facility] ELIGIBLE, \T\middot;\T\nbsp; PLEASE REFER PATIENT TO [facility] FOR NON EMERGENT MEDICAL NEEDS. \T\middot;\T\nbsp; [facility] CAN SEE PATIENTS SAME DAY FOR APTS IF PATIENT CALLS FIRST THING IN THE MORNING. E.D. VISIT COUNT (12 MO.) [address] [facility] TOTAL 4 NOTE: Visits indicate total known visits. 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 [place] TYPE: Emergency COMPLAINT: - N/V, ABD PAIN DIAGNOSES: - Abdominal distension (gaseous) - Hypothyroidism, unspecified - Constipation, unspecified - Other nursing home (current) drug therapy - Unspecified abdominal pain [...] visits to display in this time frame [email or web address]
[2021-12-25] MEDS ORDERED: KLOR-CON M2020 MEQ PO (04:25)
[2021-12-25] MEDS ORDERED: HYDROCHLOROTH12.5 M1 PO (04:26)
--- NOTE | 2021-12-26 21:22 | EKG ---
[facility] [address] [facility] [place] [address] Signed Normal sinus rhythm Inferior infarct (cited on or before 27-NOV-2021) Abnormal ECG When compared with ECG of 27-NOV-2021 11:25, Nonspecific T wave abnormality, worse in Anterior leads Confirmed by Pranav Pulliam MD () on 12/26/2021 9:22:12 PM Electronically Signed By: PRANAV PULLIAM MD 12/26/212121 PATIENT NAME: RONI URIBE Electrocardiogram DATE OF : 48 PHYSICIAN: PRANAV PULLIAM MD REPORT #: [id number] REPORT IS CONFIDENTIAL AND NOT TO BE RELEASED WITHOUT AUTHORIZATION
== END 2021-12-25 06:52 | disposition home or self-care (01) ==
LOC: ED 04:08
DX: R07.89 Other chest pain (principal); E03.9 Hypothyroidism, unspecified; F17.200 Nicotine dependence, unspecified, uncomplicated; Z88.8 Allergy status to other drugs, medicaments and biological substances; Z88.0 Allergy status to penicillin; Z88.5 Allergy status to narcotic agent; Z88.6 Allergy status to analgesic agent; Z79.899 Other long term (current) drug therapy
CPT/HCPCS: 36415; 71045; 71260; 80053; 83735; 83880; 84484; 85025; 85379; 93005; 93010; 99285-25; A9270

== ENCOUNTER 2024-06-07 09:48 | Emergency (ER) | payer MEDICARE, OTHER ==
[~2024-06-07] VITALS: Ht 162.6 cm; Wt 100.0 kg
[2024-06-07] MEDS ORDERED: SOD PHOSPHATE/SOD BIPHOSPHATE 132 ML BTL PR ONE (12:00)
[2024-06-07 12:35] VITALS: BP 118/98
== END 2024-06-07 12:35 | disposition home or self-care (01) ==
LOC: ED 09:48
DX: K59.00 Constipation, unspecified (principal); F17.200 Nicotine dependence, unspecified, uncomplicated; Z88.8 Allergy status to other drugs, medicaments and biological substances; Z88.9 Allergy status to unspecified drugs, medicaments and biological substances; Z88.5 Allergy status to narcotic agent; Z88.0 Allergy status to penicillin
CPT/HCPCS: 74176; 99284-25